=== PATIENT | female | born 1990 | race Caucasian/White ===

== ENCOUNTER 2018-01-19 05:22 | Emergency (ER) | payer OTHER, SELFPAY ==
--- OUTSIDE RECORDS SUMMARY | 2018-01-19 05:25 | XMS REPORT ---
:1990 [facility] Address [address] [place] [address] Dr. Bhakta [address] [place] [id number] Care Team Providers Name Role Phone LAYA HERBERT Unavailable Unavailable SIDNEY ACEVEDO Unavailable Unavailable Problems This patient has no known problems. Allergies, Adverse Reactions, Alerts This patient has no known allergies or adverse reactions. Medications This patient has no known medications. Results Test Description Test Time Test Comments Text Results Atomic Results Result Comments Culture, Urine 2017-06-16 10:59:00 Test Item Value Reference Range Comments Culture, Urine (test code=URC) Urine specimen contains 3 or more different organisms, Culture, Urine (test code=URC1) clinically indicated. Culture, Urine (test code=URC1) NF Culture, Urine (test code=URC1) 75 MSF Chemistry - [id number] 11:43:00 Test Item Value Reference Range Comments Chemistry - Specials (test 130.11 mIU/mL See Ranges Males and Non code=HCGQ) females: Less than 10 mIU/mLPregnancy, weeks of gestation mIU/mL 0.2 - 1 week 5 - 50 1 - 2 weeks 50 - 500 2 - 3 weeks 100 - 5,000 3 - 4 weeks 500 - 10,000 4 - 5 weeks 1,000 - 50,000 5 - 6 weeks 10,000 - 100,000 6 - 8 weeks 15,000 - 200,000 2 - 3 months 10,000 - 100,000 [id number] 21:09:00 Test Item Value Reference Range Comments Urinalysis (test code=UACLR) Yellow Yellow Urinalysis (test code=UACLY) Turbid Clear Urinalysis (test code=SPGR) 1.029 1.005-1.030 Urinalysis (test code=IRAIDA) 5.5 5.0-9.0 Urinalysis (test code=UALEU) Negative Negative Urinalysis (test code=UANIT) Negative Negative Urinalysis (test code=PROUADIP) 30 mg/dL Neg-Trace Urinalysis (test code=GLUCU) Negative mg/dL Negative Urinalysis (test code=KETU) Negative mg/dL Negative Urinalysis (test code=UAUROB) 0.2 mg/dL 0.2-1.0 Urinalysis (test code=UABIL) Negative Negative Urinalysis (test code=UABLD) Large Negative Urinalysis (test code=UARBC) GREATER THAN 50-TNTC HPF 0-3 Urinalysis (test code=UAWBC) 11-20 HPF 0-3 Urinalysis (test code=UASQUAM) 11-20 HPF 0-3 Urinalysis (test code=UABAC) 4+ HPF None Seen Urine Source: Urine Clean CatchType [id number] 21:02:00 Test Item Value Reference Range Comments Blood Type Rh (test code=BT) BP [id number] 21:01:00 Test Item Value Reference Range Comments Chemistry (test 138 mmol/L 136-145 code=NA-T) Chemistry (test 3.8 mmol/L 3.5-5.1 code=K-T) Chemistry (test code=CL) 104 mmol/L 98-107 Chemistry (test 25 mmol/L 22-29 code=CO2) Chemistry (test 13 mmol/L 10-20 code=ANGP) Chemistry (test 11 mg/dL 7.0-18.7 code=BUN) Chemistry (test 0.78 mg/dL 0.6-1.1 code=CREATT) Chemistry (test 89 Reference Range for code=EGFRMDRD) Estimated GFR: Greater than 90 mL/min/1.73 m2NOTE:The MDRD equation has not been validated for use with theelderly (over 70 years of age), women, patientswith serious comorbid condition or persons with extremes ofbody size, muscle mass, or nutritional status. Chemistry (test 117 mg/dL 70-105 code=GLU-T) Chemistry (test code=CA) 9.7 mg/dL 7.8-10.44 Chemistry (test Less than 0.3 mg/dL 0.2-1.2 code=TBILI) Chemistry (test code=TP) 7.3 g/dL 6.0-8.3 Chemistry (test 4.0 g/dL 3.5-5.0 code=ALB) Chemistry (test 3.3 g/dL 2.4-3.5 code=GLOB) Chemistry (test code=AG) 1.2 g/dL 1.2-2.2 Chemistry (test 41 U/L 40-150 code=ALP) Chemistry (test 12 U/L 5-34 code=AST) Chemistry (test 18 U/L 8-55 code=ALT) Chemistry - [id number] 21:01:00 Test Item Value Reference Range Comments Chemistry - Specials (test POSITIVE NEGATIVE Method of sensitivity- code=BHCGST) Indeterminant: results should be repeated after 48-72 hrs Positive: results may be detected as early as 1 day after the first missed menses. [id number] 20:48:00 Test Item Value Reference Range Comments Hematology (test code=WBCT) 10.6 thou/uL 4.8-10.8 Hematology (test code=RBCT) 4.38 mill/uL 4.20-5.40 Hematology (test code=HGBT) 12.0 g/dL 12.0-16.0 Hematology (test code=HCTT) 37.3 % 36.0-47.0 Hematology (test code=MCV) 85.1 fl 81.0-99.0 Hematology (test code=MCH) 27.5 pg 27.0-31.0 Hematology (test code=MCHC) 32.3 g/dL 32.0-36.0 Hematology (test code=RDW) 12.9 % 11.5-14.5 Hematology (test code=PLTT) 398 thou/uL 130-400 Hematology (test code=MPV) 6.0 fL 7.4-10.4 Hematology (test code=%NEUT) 52.3 % 42.0-75.0 Hematology (test code=%LYMPH) 36.5 % 21.0-51.0 Hematology (test code=%MONO) 7.1 % 0.0-10.0 Hematology (test code=%EOS) 2.9 % 0.0-10.0 Hematology (test code=%BASO) 1.1 % 0.0-1.0 Hematology (test code=NEUT#) 5.6 thou/uL 1.40-6.50 Hematology (test code=LYMPH#) 3.9 thou/uL 1.20-3.40 Hematology (test code=MONO#) 0.8 thou/uL 0.11-0.59 Hematology (test code=EOS#) 0.3 thou/uL 0.0-0.7 Hematology (test code=BASO#) 0.1 thou/uL 0.0-0.2
[2018-01-19 06:45] LABS: Absolute Lymphocytes (CBC) 2.7 K/uL (0.7-4.9); Absolute Monocytes 0.7 K/uL (0.1-1.3); Absolute Neutrophil 4.3 K/uL (1.8-8.0); Basophils % 0.6 % (0-1.3); Eosinophils % 3.3 % (0-4.4); Hematocrit 37.1 % (36.0-45.0); Lymphocytes % 33.9 % (15.3-44.8); MCH 27.6 pg (27.0-35.0); MCV 82.9 fL (80-100); MPV 7.3 fL (7.6-11.3); Monocytes % 8.3 % (3.3-12.3); RBC Red Blood Cell Count 4.47 M/uL (3.86-4.86)
[2018-01-19 07:00] LABS: Protime INR 0.99
--- NOTE | 2018-01-19 07:37 | RAD REPORT ---
EXAM DESCRIPTION: CT - Head Brain Wo Cont - 01/19/2018 6:51 am CLINICAL HISTORY: Headache/ vision loss COMPARISON: None. TECHNIQUE: Computed axial tomography of the head was obtained. IV contrast was not requested. All CT scans are performed using dose optimization technique as appropriate and may include automated exposure control or mA/KV adjustment according to patient size. FINDINGS: An intracranial bleed is not seen . The ventricles are normal in caliber. No extra-axial fluid collection is noted. Cerebellar tonsillar ectopia may be present. Fluid within the sinuses/ mastoids is not seen. IMPRESSION: Cerebellar tonsillar ectopia may be present No acute intracranial abnormality is seen. If patient's symptoms persist MRI of the brain would be r ecommended.
[2018-01-19 07:50] LABS: ALT/SGPT 17 IU/L (10-60); AST/SGOT 15 IU/L (10-42); Alkaline Phosphatase 39 IU/L (42-121); Bicarbonate 26 mEq/L (21-31); Bilirubin Direct < 0.1 mg/dL (0-0.2); Bilirubin Total 0.3 mg/dL (0.3-1.2); Glucose Level 116 mg/dL (65-120); Potassium 3.5 mEq/L (3.6-5.0); Protein, Total 6.9 g/dL (6.0-8.3); Sodium Level 138 mEq/L (135-145)
[2018-01-19 07:58] LABS: BUN Blood Urea Nitrogen 12 mg/dL (6-20); Glomerular Filtration Rate > 90 mL/min (=/>90)
--- NOTE | 2018-01-19 08:27 | RAD REPORT ---
EXAM DESCRIPTION: Irene Single View01/19/2018 6:43 am CLINICAL HISTORY: Chest pain COMPARISON: 2008 FINDINGS: The lungs appear clear of acute infiltrate. The heart is normal size IMPRESSION: No acute abnormalities displayed
[2018-01-19 08:28] LABS: Barbiturates NEGATIVE; Benzodiazepines NEGATIVE; Cocaine NEGATIVE; Opiates NEGATIVE; Phencyclidine NEGATIVE; THC Cannibis NEGATIVE
[2018-01-19 08:32] LABS: Urine Blood 2+ (NEG); Urine Glucose NEGATIVE (NEG); Urine Protein NEGATIVE (NEG); Urine Specific Gravity >1.030 (1.005-1.030)
[2018-01-19 08:34] LABS: METHAMPHETAM POSITIVE
--- NOTE | 2018-01-19 10:08 | EKG ---
Test Date: 2018-01-19 Test Time: 05:32:08 [employer] Hitch Driver: BILL MEASUREMENT RESULTS: Intervals: Rate: 84 MI: 130 QRSD: 74 QT: 386 QTc: 456 [place]: P: 53 MI: 130 QRS: 39 T: 24 INTERPRETIVE STATEMENTS: Normal sinus rhythm Nonspecific T wave abnormality Abnormal ECG Compared to ECG 06/18/2016 12:34:58 T-wave abnormality now present Electronically Signed On 01-19-18 10:07:34 CDT by Guilherme Lantigua
--- NOTE | 2018-01-19 11:47 | ER ---
Nurse's Notes [facility] Name: Judy Ivory Age: 27 yrs Sex: Female : 1990 Arrival Date: 01/19/2018 Time: 05:24 Bed 5 Private MD: Diagnosis: Chest pain, unspecified;Headache Presentation: 01/19 05:15 Presenting complaint: Patient states: Reports yesterday evening she felt her left side ea started feeling heavy, before bed she reported having a painful headache and the left eye went blank. Pt reported her left eye "went black" and felt numbness and tingling and before arrival to the ER pt reported having chest pain. Patient reports last well known was 2100 last night. Transition of care: patient was not received from another setting of care. Onset of symptoms was January 19, 2018. Care prior to arrival: None. 05:15 Method Of Arrival: Ambulatory ea 05:15 Acuity: NICOLETTE 2 ea Triage Assessment: 05:20 General: Appears in no apparent distress. Behavior is calm, cooperative, appropriate ea for age. Pain: Complains of pain in chest. Neuro: Level of Consciousness is awake, alert, obeys commands, Oriented to person, place, time, situation. Cardiovascular: Patient's skin is warm and dry. Respiratory: Airway is patent Respiratory effort is even, unlabored, Respiratory pattern is regular, symmetrical. Derm: Skin is pink, warm \\T\\ dry. 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 - Social history:: Smoking status: Patient uses tobacco products, smokes one-half pack cigarettes per day. Screenin:38 Patient has been NPO before screening. The patient is alert, able to follow commands. bb The patient does not exhibit slurred or garbled speech The patient is not exhibiting difficulty speaking. The patient does not exhibit difficulty understanding words. The patient is able to swallow own secretions with no drooling or need for suction. Patient tolerated one teaspoon of water. No drooling, immediate coughing, gurgling, or clearing of the throat was noted. The patient tolerated 90mL of water. No drooling, immediate coughing, gurgling, or clearing of the throat was noted. The patient passed the bedside swallow screening. Oral medications may be given as ordered. Contact Physician for further diet orders. 05:47 Abuse screen: Denies threats or abuse. Nutritional screening: No deficits noted. ea Tuberculosis screening: No symptoms or risk factors identified. Fall Risk None identified. Assessment: 05:51 Reassessment: Patient and/or family updated on plan of care and expected duration. Pain ea level reassessed. Patient is alert, oriented x 3, equal unlabored respirations, skin warm/dry/pink. General:. Pain: Complains of pain in mid-sternal area Pain radiates to anterior aspect of right upper chest and anterior aspect of left upper chest Pain currently is 3 out of 10 on a pain scale. at worst was 10 out of 10 on a pain scale. Quality of pain is described as aching, Pain began 30 min ago. Is intermittent. Cardiovascular: Heart tones present. Respiratory: Breath sounds are clear bilaterally. : No signs and/or symptoms were reported regarding the genitourinary system. 06:00 Reassessment: Patient and/or family updated on plan of care and expected duration. Pain ea level reassessed. Patient is alert, oriented x 3, equal unlabored respirations, skin warm/dry/pink. 07:05 Reassessment: Patient resting with eyes closed, awakens to verbal stimuli, denies pain ae1 at this time. Encouraged patient to use call walsh when ready to provide urine sample. 09:24 Reassessment: patient resting in bed, eyes closed respirations even and unlabored. Call ap3 walsh within reach, bed in lowest position, side rail up X's one. 10:50 Reassessment: Patient is alert, oriented x 3, equal unlabored respirations, skin ap3 warm/dry/pink. Vital Signs: 05:20 BP 124 / 88; Pulse 78; Resp 18; Temp 97.7(O); Pulse Ox 99% on R/A; Weight 74.84 kg (R); ea Height 5 ft. 1 in. (154.94 cm); 07:07 BP 105 / 76; Pulse 69; Resp 21; Pulse Ox 98% on R/A; ae1 07:38 BP 104 / 68; Pulse 68; Pulse Ox 97% on R/A; ap3 07:51 BP 116 / 83; Pulse 57; Resp 14 S; Pulse Ox 100% on R/A; jl7 09:25 BP 114 / 85; Pulse 67; Resp 19; Pulse Ox 98% on R/A; ap3 12:09 BP 108 / 80; Pulse 81; Resp 19; Pulse Ox 100% on R/A; ap3 05:20 Body Mass Index 31.18 (74.84 kg, 154.94 cm) ea NIH Stroke Scale Scores: 05:38 NIHSS Score: 0 bb 07:00 NIHSS Score: 0 pm1 ED Course: 05:15 Arm band placed on right wrist. Patient placed in an exam room, on a stretcher, on ea cardiac exercise physiologist, on pulse oximetry. 05:24 Patient arrived in ED. ds1 05:37 Antonia Valladares, RN is Primary Nurse. ea 05:42 Triage completed. ea 05:47 Patient has correct armband on for positive identification. Placed in gown. Bed in low ea position. Call light in reach. Side rails up X2. secured entrance monitor on. Pulse ox on. NIBP on. 05:47 Patient maintains SpO2 saturation greater than 95% on room air. ea 06:03 Anthony Razo, MARY KATE is PHCP. pm1 06:03 Galo Jolley MD is Attending Physician. pm1 06:25 Inserted saline lock: 20 gauge in right antecubital area, using aseptic technique. ea Blood collected. 06:38 Patient moved to radiology via wheelchair. kw 06:38 X-ray completed. Patient tolerated procedure well. kw 06:[address] via wheelchair. kw 06:42 XRAY Chest (1 view) In Process Unspecified. EDMS 06:52 CT Head Brain wo Cont In Process Unspecified. EDMS 07:06 Warm blanket given. ae1 07:36 patient ambulated, without assistance, to the restroom to provide urine sample. ap3 07:51 Urine collected: clean catch specimen, clear. mh5 07:51 UDS Sent. mh5 12:10 No provider procedures requiring assistance completed. IV discontinued, intact, ap3 bleeding controlled, No redness/swelling at site. Pressure dressing applied. Administered Medications: No medications were administered Outcome: 11:46 Discharge ordered by . pm1 12:10 Discharged to home ambulatory. ap3 12:10 Condition: stable 12:10 Discharge instructions given to patient, Instructed on discharge instructions, Demonstrated understanding of instructions. 12:14 Attestation : I agree with the charting done by Patti Dave nursing program manager. . ae1 12:15 Patient left the ED. ae1 NIH Stroke Scale - NIH Stroke Score Date: 01/19/2018 Time: 05:38 Total Score = 0 1a. Level of Consciousness (LOC) - 0(Alert) 1b. Level of Consciousness (LOC) (Year \\T\\ Age) - 0(Both) 1c. LOC Commands (Open \\T\\ Closes Eyes/Apron Man) - 0(Both) 2. Best Gaze (Lateral Gaze Paresis) - 0(Normal) 3. Visual Field Loss - 0(No visual loss) 4. Facial Palsy - 0(Normal) 5a. Left Arm: Motor (10-second hold) - 0(No drift) 5b. Right Arm: Motor (10-second hold) - 0(No drift) 6a. Left Leg: Motor (5-second hold - always test supine) - 0(No drift) 6b. Right Leg: Motor (5-second hold - always test supine) - 0(No drift) 7. Limb Ataxia (finger/nose \\T\\ heel/cochran - test with eyes open) - 0(Absent) 8. Sensory Loss (pinprick arms/legs/face) - 0(Normal) 9. Best Language: Aphasia (description/naming/reading) - 0(No aphasia) 10. Dysarthria (speech clarity - read or repeat words) - 0(Normal) 11. Extinction and Inattention (visual/tactile/auditory/spatial/personal) - 0(No abnormality) Initials: bb NIH Stroke Scale - NIH Stroke Score Date: 01/19/2018 Time: 07:00 Total Score = 0 1a. Level of Consciousness (LOC) - 0(Alert) 1b. Level of Consciousness (LOC) (Year \\T\\ Age) - 0(Both) 1c. LOC Commands (Open \\T\\ Closes Eyes/Apron Man) - 0(Both) 2. Best Gaze (Lateral Gaze Paresis) - 0(Normal) 3. Visual Field Loss - 0(No visual loss) 4. Facial Palsy - 0(Normal) 5a. Left Arm: Motor (10-second hold) - 0(No drift) 5b. Right Arm: Motor (10-second hold) - 0(No drift) 6a. Left Leg: Motor (5-second hold - always test supine) - 0(No drift) 6b. Right Leg: Motor (5-second hold - always test supine) - 0(No drift) 7. Limb Ataxia (finger/nose \\T\\ heel/cochran - test with eyes open) - 0(Absent) 8. Sensory Loss (pinprick arms/legs/face) - 0(Normal) 9. Best Language: Aphasia (description/naming/reading) - 0(No aphasia) 10. Dysarthria (speech clarity - read or repeat words) - 0(Normal) 11. Extinction and Inattention (visual/tactile/auditory/spatial/personal) - 0(No abnormality) Initials: pm1 Signatures: Dispatcher [employer] [facility] Gina Jane ds1 Shanika Fry RN RN Jannet Small Patrick, MARY KATE SHAPER AND PRESSER pm1 Denis Delaney RN RN ae1 Raquel Sarmiento 5 Diya Fajardo RN RN jl7 Antonia Valladares RN RN ea Prokisch, Amanda ap3
--- NOTE | 2018-01-19 11:48 | EDPHYS ---
Physician Documentation [facility] Name: Judy Ivory Age: 27 yrs Sex: Female : 1990 Arrival Date: 01/19/2018 Time: 05:24 Bed 5 Private MD: ED Physician Galo Jolley HPI: 01/19 07:00 This 27 yrs old Female presents to ER via Ambulatory with complaints of Chest pm1 Pain, Numbness Of Arm - L. 07:00 The patient or guardian reports chest pain that is located primarily in the substernal pm1 area. The pain radiates to the left arm. Associated signs and symptoms: Pertinent positives: headache, Pertinent negatives: abdominal pain, dizziness, palpitations, shortness of breath. The chest pain is described as sharp. Duration: The patient or guardian reports a single episode, that is now resolved. Modifying factors: The symptoms are alleviated by nothing. the symptoms are aggravated by nothing. Severity of pain: in the emergency department the pain has improved. The patient has not experienced similar symptoms in the past. The patient has not recently seen a physician. Patient reports onset of headache last night that caused left eye visual changes. Patient reports resolution of headache and visual changes yesterday. Lasted a few minutes. Prior to coming to the ER, patient with onset of chest pain with radiation to her left arm. BACK HAND: 05:20 LMP 01/17/2018 ea Historical: - Allergies: 05:44 Hydrocodone-Acetaminophen; ea - Home Meds: 05:44 Adderall XR Oral [Active]; ea - PMHx: 05:44 ectopic ; ea - Immunization history:: Adult Immunizations up to date. - Social history:: Smoking status: Patient uses tobacco products, smokes one-half pack cigarettes per day. ROS: 07:00 Constitutional: Negative for fever, chills, and weight loss, Eyes: Negative for injury, pm1 pain, redness, and discharge, ENT: Negative for injury, pain, and discharge, Neck: Negative for injury, pain, and swelling. 07:00 Respiratory: Negative for shortness of breath, cough, wheezing, and pleuritic chest pain, Abdomen/GI: Negative for abdominal pain, nausea, vomiting, diarrhea, and constipation, Back: Negative for injury and pain, : Negative for injury, bleeding, discharge, and swelling, MS/Extremity: Negative for injury and deformity, Skin: Negative for injury, rash, and discoloration. 07:00 Cardiovascular: Positive for chest pain, Negative for edema, orthopnea, palpitations. 07:00 Neuro: Positive for headache, numbness, of the left arm. Exam: 07:00 Constitutional: This is a well developed, well nourished patient who is awake, alert, pm1 and in no acute distress. Head/Face: Normocephalic, atraumatic. Eyes: Pupils equal round and reactive to light, extra-ocular motions intact. Lids and lashes normal. Conjunctiva and sclera are non-icteric and not injected. Cornea within normal limits. Periorbital areas with no swelling, redness, or edema. ENT: Nares patent. No nasal discharge, no septal abnormalities noted. Tympanic membranes are normal and external auditory canals are clear. Oropharynx with no redness, swelling, or masses, exudates, or evidence of obstruction, uvula midline. Mucous membranes moist. Neck: Trachea midline, no thyromegaly or masses palpated, and no cervical lymphadenopathy. Supple, full range of motion without nuchal rigidity, or vertebral point tenderness. No Meningismus. Chest/axilla: Normal chest wall appearance and motion. Nontender with no deformity. No lesions are appreciated. Cardiovascular: Regular rate and rhythm with a normal S1 and S2. No gallops, murmurs, or rubs. Normal PMI, no JVD. No pulse deficits. Respiratory: Lungs have equal breath sounds bilaterally, clear to auscultation and percussion. No rales, rhonchi or wheezes noted. No increased work of breathing, no retractions or nasal flaring. Abdomen/GI: Soft, non-tender, with normal bowel sounds. No distension or tympany. No guarding or rebound. No evidence of tenderness throughout. Back: No spinal tenderness. No costovertebral tenderness. Full range of motion. Skin: Warm, dry with normal turgor. Normal color with no rashes, no lesions, and no evidence of cellulitis. MS/ Extremity: Pulses equal, no cyanosis. Neurovascular intact. Full, normal range of motion. 07:00 Neuro: Orientation: is normal, Mentation: is normal, Cerebellar function: normal finger to nose testing, Motor: moves all fours, strength is normal, strength is 5/5 in all extremities, Sensation: is normal, no obvious gross deficits, Gait: is steady, at a normal pace, without difficulty. Vital Signs: 05:20 BP 124 / 88; Pulse 78; Resp 18; Temp 97.7(O); Pulse Ox 99% on R/A; Weight 74.84 kg (R); ea Height 5 ft. 1 in. (154.94 cm); 07:07 BP 105 / 76; Pulse 69; Resp 21; Pulse Ox 98% on R/A; ae1 07:38 BP 104 / 68; Pulse 68; Pulse Ox 97% on R/A; ap3 07:51 BP 116 / 83; Pulse 57; Resp 14 S; Pulse Ox 100% on R/A; jl7 09:25 BP 114 / 85; Pulse 67; Resp 19; Pulse Ox 98% on R/A; ap3 12:09 BP 108 / 80; Pulse 81; Resp 19; Pulse Ox 100% on R/A; ap3 05:20 Body Mass Index 31.18 (74.84 kg, 154.94 cm) ea NIH Stroke Scale Scores: 05:38 NIHSS Score: 0 bb 07:00 NIHSS Score: 0 pm1 MDM: 06:05 Patient medically screened. pm1 11:46 Data reviewed: vital signs. Data interpreted: Pulse oximetry: on room air is 98 %. pm1 Interpretation: normal. Counseling: I had a detailed discussion with the patient and/or guardian regarding: the historical points, exam findings, and any diagnostic results supporting the discharge/admit diagnosis, lab results, radiology results, the need for outpatient follow up, a family practitioner, a neurologist, to return to the emergency department if symptoms worsen or persist or if there are any questions or concerns that arise at home. 01/19 06:16 Order name: Basic Metabolic Panel; Complete Time: 08: pm01/19 06:16 Order name: BNP; Complete Time: 07: pm01/19 06:16 Order name: CBC with Diff; Complete Time: 07:29 pm01/19 06:16 Order name: LFT's; Complete Time: 08:09 pm01/19 06:16 Order name: Magnesium; Complete Time: 08:09 pm01/19 06:16 Order name: PT-INR; Complete Time: 07:29 pm01/19 06:16 Order name: Ptt, Activated; Complete Time: 07:29 pm1 01/19 06:16 Order name: Troponin (emerg Dept Use Only); Complete Time: 07:29 pm1 01/19 06:16 Order name: XRAY Chest (1 view); Complete Time: 08:28 pm1 01/19 06:17 Order name: CT Head Brain wo Cont; Complete Time: 07:44 pm1 01/19 06:17 Order name: UDS; Complete Time: 08:37 pm1 01/19 07:56 Order name: Urine Dipstick--Ancillary (enter results); Complete Time: 08:37 ag 01/19 07:56 Order name: Urine --Ancillary (enter results); Complete Time: 08:37 ag 01/19 10:29 Order name: Troponin (emerg Dept Use Only); Complete Time: 11:45 pm1 01/19 06:16 Order name: Urine Test (obtain specimen); Complete Time: 07:50 pm1 01/19 06:16 Order name: EKG; Complete Time: 06:17 pm1 01/19 06:16 Order name: Cardiac monitoring; Complete Time: 06:22 pm1 01/19 06:16 Order name: EKG - Nurse/Tech; Complete Time: 06:22 pm1 01/19 06:16 Order name: IV Saline Lock; Complete Time: 06:32 pm1 01/19 06:16 Order name: Labs collected and sent; Complete Time: 06:37 pm1 01/19 06:16 Order name: O2 Per Protocol; Complete Time: 06:23 pm1 01/19 06:16 Order name: O2 Sat Monitoring; Complete Time: 06:23 pm1 01/19 06:16 Order name: Urine Dipstick-Ancillary (obtain specimen); Complete Time: 07:50 pm1 Administered Medications: No medications were administered Disposition: 01/19/18 11:46 Discharged to Home. Impression: Chest pain, unspecified, Headache. - Condition is Stable. - Discharge Instructions: Nonspecific Chest Pain, General Headache Without Cause. - Medication Reconciliation Form, Thank You Letter, Antibiotic Education form. - Follow up: Emergency Department; When: As needed; Reason: Worsening of condition. Follow up: Private Physician; When: 2 - 3 days; Reason: Recheck today's complaints, Continuance of care, Re-evaluation by your physician. - Problem is new. - Symptoms have improved. NIH Stroke Scale - NIH Stroke Score Date: 01/19/2018 Time: 05:38 Total Score = 0 1a. Level of Consciousness (LOC) - 0(Alert) 1b. Level of Consciousness (LOC) (Year \T\ Age) - 0(Both) 1c. LOC Commands (Open \T\ Closes Eyes/Sheet Manufacturing Supervisor) - 0(Both) 2. Best Gaze (Lateral Gaze Paresis) - 0(Normal) 3. Visual Field Loss - 0(No visual loss) 4. Facial Palsy - 0(Normal) 5a. Left Arm: Motor (10-second hold) - 0(No drift) 5b. Right Arm: Motor (10-second hold) - 0(No drift) 6a. Left Leg: Motor (5-second hold - always test supine) - 0(No drift) 6b. Right Leg: Motor (5-second hold - always test supine) - 0(No drift) 7. Limb Ataxia (finger/nose \T\ heel/cochran - test with eyes open) - 0(Absent) 8. Sensory Loss (pinprick arms/legs/face) - 0(Normal) 9. Best Language: Aphasia (description/naming/reading) - 0(No aphasia) 10. Dysarthria (speech clarity - read or repeat words) - 0(Normal) 11. Extinction and Inattention (visual/tactile/auditory/spatial/personal) - 0(No abnormality) Initials: NIH Stroke Scale - NIH Stroke Score Date: 01/19/2018 Time: 07:00 Total Score = 0 1a. Level of Consciousness (LOC) - 0(Alert) 1b. Level of Consciousness (LOC) (Year \T\ Age) - 0(Both) 1c. LOC Commands (Open \T\ Closes Eyes/Sheet Manufacturing Supervisor) - 0(Both) 2. Best Gaze (Lateral Gaze Paresis) - 0(Normal) 3. Visual Field Loss - 0(No visual loss) 4. Facial Palsy - 0(Normal) 5a. Left Arm: Motor (10-second hold) - 0(No drift) 5b. Right Arm: Motor (10-second hold) - 0(No drift) 6a. Left Leg: Motor (5-second hold - always test supine) - 0(No drift) 6b. Right Leg: Motor (5-second hold - always test supine) - 0(No drift) 7. Limb Ataxia (finger/nose \T\ heel/cochran - test with eyes open) - 0(Absent) 8. Sensory Loss (pinprick arms/legs/face) - 0(Normal) 9. Best Language: Aphasia (description/naming/reading) - 0(No aphasia) 10. Dysarthria (speech clarity - read or repeat words) - 0(Normal) 11. Extinction and Inattention (visual/tactile/auditory/spatial/personal) - 0(No abnormality) Initials: pm1 Addendum: 01/21/2018 07:00 Co-signature as Attending Physician, Galo Jolley MD. rn Signatures: Dispatcher [employer] EDGalo Rojas MD MD rn Marinas, Patrick, MARY KATE SUPERVISOR SANDBLASTER pm1 Denis Delaney RN RN ae1 Antonia Valladares RN RN ea
[2018-01-19 12:32] VITALS: BP 108/80; O2SAT 100
== END 2018-01-19 12:15 | disposition home or self-care (01) ==
LOC: ER 05:22
DX: R51 Headache (principal); F17.210 Nicotine dependence, cigarettes, uncomplicated; Z88.5 Allergy status to narcotic agent
CPT/HCPCS: 36415; 70450; 71045; 80048; 80076; 80307; 81003; 81025; 83735; 83880; 84484; 85025; 85610; 85730; 93005; 99285

== ENCOUNTER 2018-05-27 10:49 | Emergency (ER) | payer OTHER ==
--- OUTSIDE RECORDS SUMMARY | 2018-05-27 10:52 | XMS REPORT | Continuity of Care Document ---
:1990 Author Organization Interface Problems Problem Status Onset Date Classification Date Comments Source Reported Medications Medication Details Route Status Patient Ordering Order Source Instructions Provider Date Allergies, Adverse Reactions, Alerts Substance Category Reaction Severity Reaction Status Date Comments Source type Reported Immunizations Immunization Date Given Site Status Last Updated Comments Source Results Order Results Value Reference Date Interpretation Comments Source Name Range Vital Signs Vital Sign Value Date Comments Source Encounters Location Location Encounter Encounter Reason Attending ADM DC Status Source Details Type Number For Provider Date Date Visit Outpatient [id number] [facility] 02/22 [facility] Outpatient [id number] [facility] 02/27 [facility] Outpatient [id number] [facility] 03/22 [facility] Outpatient [id number] [facility] 04/21 [facility] Outpatient [id number] [facility] 06/02 [facility] Procedures Procedure Code Date Perfomer Comments Source
--- OUTSIDE RECORDS SUMMARY | 2018-05-27 10:52 | XMS REPORT ---
:1990 [facility] [address] [place] [address] Dr. Bhakta [address] [place] [id number] Care Team Providers Name Role Phone LAYA [...] Urine (test code=URC1) 75 MSF Chemistry - [id number] 11:43:00 Test Item Value Reference Range Comments [...] 2 - 3 months 10,000 - 100,000 [id number] 21:09:00 Test Item Value Reference Range Comments [...] None Seen Urine Source: Urine Clean CatchType [id number] 21:02:00 Test Item Value Reference Range Comments Blood Type Rh (test code=BT) BP [id number] 21:01:00 Test Item Value Reference Range Comments [...] (test 18 U/L 8-55 code=ALT) Chemistry - [id number] 21:01:00 Test Item Value Reference Range Comments Chemistry - Specials (test POSITIVE NEGATIVE Method of sensitivity- code=BHCGST) Indeterminant: results should be repeated after 48-72 hrs Positive: results may be detected as early as 1 day after the first missed menses. [id number] 20:48:00 Test Item Value Reference Range Comments [...]
--- NOTE | 2018-05-27 11:31 | EDPHYS ---
Physician Documentation [facility] Name: Judy Ivory Age: 27 yrs Sex: Female : 1990 Arrival Date: 05/27/2018 Time: 10:51 Bed 6 Private MD: None, None ED Physician Galo Jolley HPI: 05/27 11:21 This 27 yrs old Female presents to ER via Ambulatory with complaints of Pain jmm With Urination. 11:21 The patient presents with urinary symptoms, dysuria, frequency. Onset: The jmm symptoms/episode began/occurred gradually, 3 day(s) ago. Modifying factors: The symptoms are alleviated by nothing, the symptoms are aggravated by nothing. Associated signs and symptoms: Pertinent negatives: fever, hematuria, vomiting. This is a 27 year old female with a history kidney stones that presents to the ED with dysuria beginning approx 3 days ago. patient denies vomiting, fever, or flank pain. 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 - Social history:: Smoking status: Patient uses tobacco products, smokes one-half pack cigarettes per day. - Ebola Screening: : Patient denies travel to an Ebola-affected area in the 21 days before illness onset. ROS: 11:21 Constitutional: Negative for fever, chills, and weight loss, Cardiovascular: Negative jmm for chest pain, palpitations, and edema, Respiratory: Negative for shortness of breath, cough, wheezing, and pleuritic chest pain. 11:21 Abdomen/GI: Negative for abdominal pain, nausea and vomiting. 11:21 Back: Negative for pain at rest, radiated pain. 11:21 : Positive for urinary symptoms. 11:21 All other systems are negative. Exam: 11:21 Head/Face: atraumatic. jmm 11:21 Constitutional: The patient appears in no acute distress, alert, awake. Vital Signs: 11:11 BP 111 / 75; Pulse 84; Resp 18; Temp 98.4; Pulse Ox 99% on R/A; Weight 74.84 kg (R); aj1 Height 5 ft. 1 in. (154.94 cm) (R); Pain 0/10; 11:11 Body Mass Index 31.18 (74.84 kg, 154.94 cm) aj1 MDM: 11:20 Patient medically screened. [facility] 11:30 Data reviewed: vital signs, nurses notes, lab test result(s). Counseling: I had a [facility] detailed discussion with the patient and/or guardian regarding: the historical points, exam findings, and any diagnostic results supporting the discharge/admit diagnosis, the need for outpatient follow up, to return to the emergency department if symptoms worsen or persist or if there are any questions or concerns that arise at home. 13:42 ED course: Patient's abdomen is benign. I do not currently suspect pyelonephritis. [facility] Patient has no CVA tenderness, no vomiting, afebrile and non toxic in appearance. Symptoms appear consistent with simple UTI. . 05/27 11:33 Order name: Urine Dipstick--Ancillary (enter results); Complete Time: 13:41 05/27 11:33 Order name: Urine --Ancillary (enter results); Complete Time: 13:41 05/27 11:21 Order name: Urine Dipstick-Ancillary (obtain specimen); Complete Time: 11:30 [facility] 05/27 11:21 Order name: Urine Test (obtain specimen); Complete Time: 11:30 [facility] Administered Medications: No medications were administered Disposition: 14:06 Co-signature as Attending Physician, Galo Jolley MD. rn Disposition: 05/27/18 11:30 Discharged to Home. Impression: Dysuria. - Condition is Stable. - Discharge Instructions: Dysuria. - Prescriptions for Bactrim DS 800- 160 mg Oral Tablet - take 1 tablet by ORAL route every 12 hours for 10 days; 20 tablet. - Work release form, Medication Reconciliation Form, Thank You Letter, Antibiotic Education, Prescription Opioid Use form. - Follow up: Private Physician; When: 2 - 3 days; Reason: Recheck today's complaints, Re-evaluation by your physician. Signatures: Dispatcher [employer] EDMS Sara Madrid RN RN aj1 Joe Durán RN RN sg Mickail, Joel, PA PA [facility] Galo Jolley MD MD rn radiology: (The following items were deleted from the chart) 11:41 11:30 05/27/2018 11:30 Discharged to Home. Impression: Dysuria. Condition is Stable. sg Forms are Medication Reconciliation Form, Thank You Letter, Antibiotic Education, Prescription Opioid Use. Follow up: Private Physician; When: 2 - 3 days; Reason: Recheck today's complaints, Re-evaluation by your physician. marlene
--- NOTE | 2018-05-27 11:31 | ER ---
Nurse's Notes [facility] Name: Judy Ivory Age: 27 yrs Sex: Female : 1990 Arrival Date: 05/27/2018 Time: 10:51 Bed 6 Private MD: None, None Diagnosis: Dysuria Presentation: 05/27 11:09 Presenting complaint: Patient states: Reports dysuria that started yesterday morning. aj1 States that she has a history of kidney stones, so she wanted to have it checked out. Reports urinary frequency, denies flank pain. Transition of care: patient was not received from another setting of care. Onset of symptoms was May 26, 2018. Risk Assessment: Do you want to hurt yourself or someone else? Patient reports no desire to harm self or others. Initial Sepsis Screen: Does the patient meet any 2 criteria? No. Patient's initial sepsis screen is negative. Does the patient have a suspected source of infection? No. Patient's initial sepsis screen is negative. Care prior to arrival: None. 11:09 Method Of Arrival: Ambulatory aj 11:09 Acuity: NICOLETTE 4 aj1 Triage Assessment: 11:11 General: Appears in no apparent distress. comfortable, Behavior is calm, cooperative, aj1 appropriate for age. Pain: Denies pain. Neuro: Level of Consciousness is awake, alert, obeys commands. Cardiovascular: Patient's skin is warm and dry. Respiratory: Airway is patent Respiratory effort is even, unlabored, Respiratory pattern is regular, symmetrical. : Reports burning with urination, urinary frequency. 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 - Social history:: Smoking status: Patient uses tobacco products, smokes one-half pack cigarettes per day. - Ebola Screening: : Patient denies travel to an Ebola-affected area in the 21 days before illness onset. Vital Signs: 11:11 BP 111 / 75; Pulse 84; Resp 18; Temp 98.4; Pulse Ox 99% on R/A; Weight 74.84 kg (R); aj1 Height 5 ft. 1 in. (154.94 cm) (R); Pain 0/10; 11:11 Body Mass Index 31.18 (74.84 kg, 154.94 cm) aj1 ED Course: 10:51 Patient arrived in ED. sb2 10:51 None, None is Private Physician. sb2 11:10 Triage completed. aj1 11:11 Arm band placed on Patient placed in an exam room. [facility] 11:17 Primo Sellers PA is PHCP. [facility] 11:17 Galo Jolley MD is Attending Physician. [facility] 11:18 Joe Durán, RN is Primary Nurse. sg Administered Medications: No medications were administered Outcome: 11:30 Discharge ordered by MD. [facility] 11:41 Patient left the ED. sg Signatures: Sara Madrid RN RN aj1 Joe Durán, RN RN Primo Goodman PA PA Marianne Kelly sb2
[2018-05-27 11:40] LABS: Urine Blood NEGATIVE (NEG); Urine Glucose NEGATIVE (NEG); Urine Protein NEGATIVE (NEG); Urine pH 7.5 (5.0-7.0)
[2018-05-27 11:46] VITALS: BP 111/75; TEMP 98.4; O2SAT 99
== END 2018-05-27 11:41 | disposition home or self-care (01) ==
LOC: ER 10:49
DX: R30.0 Dysuria (principal); Z88.6 Allergy status to analgesic agent; Z88.5 Allergy status to narcotic agent; F17.210 Nicotine dependence, cigarettes, uncomplicated
CPT/HCPCS: 81003; 81025; 99281

== ENCOUNTER 2018-06-26 07:14 | Emergency (ER) | payer OTHER ==
--- OUTSIDE RECORDS SUMMARY | 2018-06-26 07:16 | XMS REPORT | Continuity of Care Document ---
[...] Number For Provider Date Date Visit Outpatient [id number] [facility] 02/22 [facility] Outpatient [id number] [facility] 02/27 [facility] Outpatient [id number] [facility] 03/22 [facility] Outpatient [id number] [facility] 04/21 [facility] Outpatient [id number] [facility] 06/02 [facility] Procedures Procedure Code Date Perfomer Comments Source
--- OUTSIDE RECORDS SUMMARY | 2018-06-26 07:16 | XMS REPORT ---
:1990 [facility] Address [address] [place] [address] Dr. Bhakta [address] [place] [id number] Care Team Providers Name Role Phone LAYA [...] Urine (test code=URC1) 75 MSF Chemistry - [id number] 11:43:00 Test Item Value Reference Range Comments [...] 2 - 3 months 10,000 - 100,000 [id number] 21:09:00 Test Item Value Reference Range Comments [...] None Seen Urine Source: Urine Clean CatchType [id number] 21:02:00 Test Item Value Reference Range Comments Blood Type Rh (test code=BT) BP [id number] 21:01:00 Test Item Value Reference Range Comments [...] (test 18 U/L 8-55 code=ALT) Chemistry - [id number] 21:01:00 Test Item Value Reference Range Comments Chemistry - Specials (test POSITIVE NEGATIVE Method of sensitivity- code=BHCGST) Indeterminant: results should be repeated after 48-72 hrs Positive: results may be detected as early as 1 day after the first missed menses. [id number] 20:48:00 Test Item Value Reference Range Comments [...]
--- NOTE | 2018-06-26 07:44 | RAD REPORT ---
EXAM DESCRIPTION: CT - Head Brain Wo Cont - 06/26/2018 7:38 am CLINICAL HISTORY: Headache all COMPARISON: PE CT head January 2018 TECHNIQUE: Axial 5 mm thick images of the head were obtained without IV contrast. All CT scans are performed using dose optimization technique as appropriate and may include automated exposure control or mA/KV adjustment according to patient size. FINDINGS: No intracranial hemorrhage, mass, edema or shift of mid-line structures. No acute infarcti on changes seen. No abnormal extra-axial fluid collections. Ventricles are normal. Mastoid air cells and visualized portions of the paranasal sinuses are clear. No acute bony findings. No significant change from comparison. IMPRESSION: Negative non-contrast CT head examination.
[2018-06-26] MEDS ORDERED: KETOROLAC 30 MG/ML INJ ONE (07:50)
[2018-06-26] MEDS ORDERED: DIPHENHYDRAMINE 25 MG TAB/CAP ONE (07:55)
[2018-06-26] MEDS ORDERED: METOCLOPRAMIDE 5 MG TAB ONE (07:56)
--- NOTE | 2018-06-26 08:14 | EDPHYS ---
Physician Documentation [facility] Name: Judy Ivory Age: 27 yrs Sex: Female : 1990 Arrival Date: 06/26/2018 Time: 07:15 Bed 20 Private MD: ED Physician Galo Jolley HPI: 06/26 08:00 This 27 yrs old Female presents to ER via EMS with complaints of Headache. pm1 08:00 The patient complains of pain to the right temporal area. The patient describes the pm1 headache as aching. Onset: The symptoms/episode began/occurred at 03:00. Associated signs and symptoms: Pertinent negatives: fever, nausea, rash, vomiting. Severity of symptoms: in the emergency department the pain is actually worse. Headache History: The patient has had previous headaches and this one is similar to previous episodes. The symptoms are alleviated by nothing. the symptoms are aggravated by lights. The patient has experienced similar episodes in the past, multiple times. Patient with onset of right sided headaches this year since December. Patient's headache similar to prior right sided headaches, but no improvement with OTC medications at home today. Patient being treated for her migraine headaches by Dr. Young. RECHARGER: 07:20 LMP 05/2018 jl7 Historical: - Allergies: 07:22 Hydrocodone-Acetaminophen; jl7 - Home Meds: 07:22 None [Active]; jl7 - PMHx: 07:22 Depression; ectopic ; jl7 - PSHx: 07:22 None; jl7 - Immunization history:: Adult Immunizations unknown. - Social history:: Smoking status: Patient uses tobacco products, smokes one-half pack cigarettes per day. - Ebola Screening: : No symptoms or risks identified at this time. ROS: 08:00 Constitutional: Negative for fever, chills, and weight loss, Eyes: Negative for injury, pm1 pain, redness, and discharge, ENT: Negative for injury, pain, and discharge, Neck: Negative for injury, pain, and swelling, Cardiovascular: Negative for chest pain, palpitations, and edema, Respiratory: Negative for shortness of breath, cough, wheezing, and pleuritic chest pain, Abdomen/GI: Negative for abdominal pain, nausea, vomiting, diarrhea, and constipation, Back: Negative for injury and pain, MS/Extremity: Negative for injury and deformity, Skin: Negative for injury, rash, and discoloration. 08:00 Neuro: Positive for headache, Negative for hearing loss, numbness, seizure activity, tingling, weakness. Exam: 08:00 Constitutional: This is a well developed, well nourished patient who is awake, alert, pm1 and in no acute distress. Head/Face: Normocephalic, atraumatic. Eyes: Pupils equal round and reactive to light, extra-ocular motions intact. Lids and lashes normal. Conjunctiva and sclera are non-icteric and not injected. Cornea within normal limits. Periorbital areas with no swelling, redness, or edema. ENT: Nares patent. No nasal discharge, no septal abnormalities noted. Tympanic membranes are normal and external auditory canals are clear. Oropharynx with no redness, swelling, or masses, exudates, or evidence of obstruction, uvula midline. Mucous membranes moist. Neck: Trachea midline, no thyromegaly or masses palpated, and no cervical lymphadenopathy. Supple, full range of motion without nuchal rigidity, or vertebral point tenderness. No Meningismus. Chest/axilla: Normal chest wall appearance and motion. Nontender with no deformity. No lesions are appreciated. Cardiovascular: Regular rate and rhythm with a normal S1 and S2. No gallops, murmurs, or rubs. Normal PMI, no JVD. No pulse deficits. Respiratory: Lungs have equal breath sounds bilaterally, clear to auscultation and percussion. No rales, rhonchi or wheezes noted. No increased work of breathing, no retractions or nasal flaring. Abdomen/GI: Soft, non-tender, with normal bowel sounds. No distension or tympany. No guarding or rebound. No evidence of tenderness throughout. Back: No spinal tenderness. No costovertebral tenderness. Full range of motion. Skin: Warm, dry with normal turgor. Normal color with no rashes, no lesions, and no evidence of cellulitis. MS/ Extremity: Pulses equal, no cyanosis. Neurovascular intact. Full, normal range of motion. 08:00 Neuro: Orientation: is normal, Mentation: is normal, Cranial nerves: CN II- XII are normal as tested, Cerebellar function: normal finger to nose testing, Motor: moves all fours, Sensation: is normal, no obvious gross deficits, Gait: is steady, at a normal pace, without difficulty. Vital Signs: 07:22 BP 132 / 91; Pulse 81; Resp 22 S; Temp 97.6(O); Pulse Ox 97% on R/A; Weight 72.57 kg 7 (R); Height 5 ft. 1 in. (154.94 cm) (R); Pain 10/10; 08:10 BP 114 / 76; Pulse 68; Resp 16; Pulse Ox 98% on R/A; Pain 7/10; jl7 07:22 Body Mass Index 30.23 (72.57 kg, 154.94 cm) 7 MDM: 07:21 Patient medically screened. pm1 08:12 Data reviewed: vital signs. Data interpreted: Pulse oximetry: on room air is 98 %. pm1 Interpretation: normal. Counseling: I had a detailed discussion with the patient and/or guardian regarding: the historical points, exam findings, and any diagnostic results supporting the discharge/admit diagnosis, radiology results, the need for outpatient follow up, to return to the emergency department if symptoms worsen or persist or if there are any questions or concerns that arise at home. 08:12 ED course: Negative CT head and neuro examination, headache improved with medications pm1 given in ER. Will discharge home with pain medications and follow up with her neurologist. 06/26 07:34 Order name: Urine Dipstick--Ancillary (enter results) 06/26 07:34 Order name: Urine --Ancillary (enter results) 06/26 07:22 Order name: CT Head Brain wo Cont; Complete Time: 07:48 pm1 06/26 07:22 Order name: Urine Dipstick-Ancillary (obtain specimen); Complete Time: 07:42 pm1 06/26 07:22 Order name: Urine Test (obtain specimen); Complete Time: 07:42 pm1 06/26 07:22 Order name: IV Saline Lock; Complete Time: 07:30 pm1 Administered Medications: 07:52 Drug: TORadol 30 mg Route: IVP; Site: right antecubital; 08:10 Follow up: Response: No adverse reaction; Pain is decreased jl7 07:55 Not Given (Hospital is out of IV Benadryl): Benadryl 25 mg IVP once 7 07:56 Drug: Reglan 10 mg Route: PO; jl7 08:10 Follow up: Response: No adverse reaction jl7 07:56 Drug: Benadryl 25 mg Route: PO; jl7 08:10 Follow up: Response: No adverse reaction jl7 08:16 Not Given (Other Intervention Used): Reglan 10 mg IVP once; over 1 to 2 minutes jl7 Disposition: 10:06 Co-signature as Attending Physician, Galo Jolley MD. rn Disposition: 06/26/18 08:13 Discharged to Home. Impression: Headache. - Condition is Stable. - Discharge Instructions: General Headache Without Cause, Migraine Headache. - Prescriptions for Fiorinal 50- 325-40 mg Oral Capsule - take 1 capsule by ORAL route every 4 hours As needed - not to exceed 6 capsules per day; 20 capsule. Zofran 4 mg Oral Tablet - take 1 tablet by ORAL route every 12 hours As needed; 20 tablet. - Medication Reconciliation Form, Thank You Letter, Prescription Opioid Use form. - Follow up: Jayce Young MD; When: 2 - 3 days; Reason: Recheck today's complaints, Continuance of care, Re-evaluation by your physician. - Problem is new. - Symptoms have improved. Signatures: Dispatcher [employer] EDMS Galo Jolley MD MD rn Marinas, Patrick, NP AUTOMOTIVE SERVICE ASSISTANT pm1 Diya Fajardo RN RN jl7 Corrections: (The following items were deleted from the chart) 08:22 08:13 06/26/2018 08:13 Discharged to Home. Impression: Headache. Condition is Stable. jl7 Forms are Medication Reconciliation Form, Thank You Letter, Antibiotic Education, Prescription Opioid Use. Follow up: Jayce Young; When: 2 - 3 days; Reason: Recheck today's complaints, Continuance of care, Re-evaluation by your physician. Problem is new. Symptoms have improved. pm1
--- NOTE | 2018-06-26 08:14 | ER ---
Nurse's Notes [facility] Name: Judy Ivory Age: 27 yrs Sex: Female : 1990 Arrival Date: 06/26/2018 Time: 07:15 Bed 20 Private MD: Diagnosis: Headache Presentation: 06/26 07:20 Presenting complaint: EMS states: C/o migraine since 299, took Tylenol and a warm 7 bath, no relief. Transition of care: patient was not received from another setting of care. Onset of symptoms was June 26, 2018 at 03:00. Risk Assessment: Do you want to hurt yourself or someone else? Patient reports no desire to harm self or others. Initial Sepsis Screen: Does the patient meet any 2 criteria? No. Patient's initial sepsis screen is negative. Does the patient have a suspected source of infection? No. Patient's initial sepsis screen is negative. Care prior to arrival: None. 07:20 Method Of Arrival: EMS: [facility] 07:20 Acuity: NICOLETTE 3 jl7 Triage Assessment: 07:20 Headache History: The patient has had previous headaches and this one is similar to 7 previous episodes. General: Appears uncomfortable, Behavior is cooperative, anxious, crying. Pain: Complains of pain in AZAR Pain currently is 10 out of 10 on a pain scale. Pain began 4 hours ago. Also complains of photophobia, sleeplessness. EENT: No signs and/or symptoms were reported regarding the EENT system. Neuro: Level of Consciousness is awake, alert, obeys commands, Oriented to person, place, time, situation, Certified Midwife are equal bilaterally Moves all extremities. Full function Gait is steady, Speech is normal, Facial symmetry appears normal, Pupils are PERRLA. Cardiovascular: Patient's skin is warm and dry. Respiratory: Airway is patent Respiratory effort is even, unlabored, Respiratory pattern is symmetrical, tachypnea GI: No signs and/or symptoms were reported involving the gastrointestinal system. : No signs and/or symptoms were reported regarding the genitourinary system. Derm: Skin is pink, warm \T\ dry. Musculoskeletal: No signs and/or symptoms reported regarding the musculoskeletal system. 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 - Social history:: Smoking status: Patient uses tobacco products, smokes one-half pack cigarettes per day. - Ebola Screening: : No symptoms or risks identified at this time. Screenin:59 Abuse screen: Denies threats or abuse. Denies injuries from another. Nutritional jl7 screening: No deficits noted. Tuberculosis screening: No symptoms or risk factors identified. Fall Risk IV access (20 points). [place] Fall Scale indicates No Risk (0-24 pts). Assessment: 07:20 General: See triage assessment. jl7 08:10 Reassessment: Patient and/or family updated on plan of care and expected duration. Pain jl7 level reassessed. Patient is alert, oriented x 3, equal unlabored respirations, skin warm/dry/pink. Pain: Pain currently is 7 out of 10 on a pain scale. Vital Signs: 07:22 BP 132 / 91; Pulse 81; Resp 22 S; Temp 97.6(O); Pulse Ox 97% on R/A; Weight 72.57 kg jl7 (R); Height 5 ft. 1 in. (154.94 cm) (R); Pain 10/10; 08:10 BP 114 / 76; Pulse 68; Resp 16; Pulse Ox 98% on R/A; Pain 7/10; jl7 07:22 Body Mass Index 30.23 (72.57 kg, 154.94 cm) jl7 ED Course: 07:15 Patient arrived in ED. bd 07:19 Diya Fajardo, PEEWEE is Primary Nurse. jl7 07:21 Anthony Razo NP is PHCP. pm1 07:21 Galo Jolley MD is Attending Physician. pm1 07:21 Triage completed. jl7 07:22 Arm band placed on right wrist. jl7 07:30 Inserted saline lock: 20 gauge in right antecubital area, using aseptic technique. iw 07:36 CT completed. Patient tolerated procedure well. Patient moved to CT via wheelchair. jg6 Patient moved back from CT. 07:38 CT Head Brain wo Cont In Process Unspecified. EDMS 07:40 Urine collected: clean catch specimen, clear. mh5 07:59 Patient has correct armband on for positive identification. Placed in gown. Bed in low jl7 position. Call light in reach. Side rails up X 1. Pulse ox on. NIBP on. 08:13 Jayce Young MD is Referral Physician. pm1 08:22 No provider procedures requiring assistance completed. IV discontinued, intact, jl7 bleeding controlled, No redness/swelling at site. Pressure dressing applied. Administered Medications: 07:52 Drug: TORadol 30 mg Route: IVP; Site: right antecubital; jl7 08:10 Follow up: Response: No adverse reaction; Pain is decreased jl7 07:55 Not Given (Hospital is out of IV Benadryl): Benadryl 25 mg IVP once jl7 07:56 Drug: Reglan 10 mg Route: PO; jl7 08:10 Follow up: Response: No adverse reaction jl7 07:56 Drug: Benadryl 25 mg Route: PO; jl7 08:10 Follow up: Response: No adverse reaction jl7 08:16 Not Given (Other Intervention Used): Reglan 10 mg IVP once; over 1 to 2 minutes jl7 Outcome: 08:13 Discharge ordered by MD. pm1 08:22 Discharged to home ambulatory. jl7 08:22 Condition: stable 08:22 Discharge instructions given to patient, Instructed on discharge instructions, follow up and referral plans. medication usage, Demonstrated understanding of instructions, follow-up care, medications. 08:22 Patient left the ED. jl7 Signatures: Dispatcher [employer] EDMS Sosa Dominguez Irene, Anthony Martinez RN, NP FILENET ARCHITECT 1 Raquel Sarm[facility] Diya Fajardo RN RN jl7 Leanna Weaver jg6
[2018-06-26 08:43] VITALS: TEMP 97.6
[2018-06-26 08:45] VITALS: BP 114/76; O2SAT 98
[2018-06-26 11:19] LABS: Urine Blood NEGATIVE (NEG); Urine Glucose NEGATIVE (NEG); Urine Protein NEGATIVE (NEG); Urine Specific Gravity >1.030 (1.005-1.030)
== END 2018-06-26 08:22 | disposition home or self-care (01) ==
LOC: ER 07:14
DX: R51 Headache (principal); F17.210 Nicotine dependence, cigarettes, uncomplicated; Z88.5 Allergy status to narcotic agent
CPT/HCPCS: 70450; 81003; 81025; 96374; 99284

== ENCOUNTER 2018-09-11 18:42 | Emergency (ER) | payer OTHER ==
--- OUTSIDE RECORDS SUMMARY | 2018-09-11 18:44 | XMS REPORT | Continuity of Care Document ---
[...] Number For Provider Date Date Visit Outpatient [id number] DOROTEO 02/22 Active [facility] Outpatient [id number] D[facility] 02/27 Active [facility] Outpatient [id number] D[facility] 03/22 Active [facility] Outpatient [id number] DOROTEO 04/21 Active [facility] Outpatient [id number] DOROTEO 06/02 Active [facility] Outpatient [id number] DOROTEO 07/21 [facility] Procedures Procedure Code Date Perfomer Comments Source
--- OUTSIDE RECORDS SUMMARY | 2018-09-11 18:45 | XMS REPORT ---
:1990 [facility] [address] [place] [address] Dr. Bhakta [address] [place] [id number] Care Team Providers Name Role Phone LAYA [...] Urine (test code=URC1) 75 MSF Chemistry - [id number] 11:43:00 Test Item Value Reference Range Comments [...] 2 - 3 months 10,000 - 100,000 [id number] 21:09:00 Test Item Value Reference Range Comments [...] None Seen Urine Source: Urine Clean CatchType [id number] 21:02:00 Test Item Value Reference Range Comments Blood Type Rh (test code=BT) BP [id number] 21:01:00 Test Item Value Reference Range Comments [...] (test 18 U/L 8-55 code=ALT) Chemistry - [id number] 21:01:00 Test Item Value Reference Range Comments Chemistry - Specials (test POSITIVE NEGATIVE Method of sensitivity- code=BHCGST) Indeterminant: results should be repeated after 48-72 hrs Positive: results may be detected as early as 1 day after the first missed menses. [id number] 20:48:00 Test Item Value Reference Range Comments [...]
--- NOTE | 2018-09-11 19:39 | ER ---
Nurse's Notes [facility] Name: Judy Ivory Age: 27 yrs Sex: Female : 1990 Arrival Date: 09/11/2018 Time: 18:44 Bed 14 Private MD: Eduar Mcelroy E; out of town, doctor Diagnosis: Dental caries Presentation: 09/11 18:53 Presenting complaint: Patient states: Reports an abscess to the upper gum line, reports sg having sinus pressure that is causing her migraines to worsen, has an appointment with neurology on Tuesday to be evaluated for the migraines, denies N/V/D. Transition of care: patient was not received from another setting of care. Onset of symptoms was September 11, 2018. Risk Assessment: Do you want to hurt yourself or someone else? Patient reports no desire to harm self or others. Initial Sepsis Screen: Does the patient meet any 2 criteria? No. Patient's initial sepsis screen is negative. Does the patient have a suspected source of infection? No. Patient's initial sepsis screen is negative. Care prior to arrival: None. 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 - Social history:: Smoking status: Patient uses tobacco products, smokes one-half pack cigarettes per day. - Ebola Screening: : Patient negative for fever greater than or equal to 101.5 degrees Fahrenheit, and additional compatible Ebola Virus Disease symptoms Patient denies exposure to infectious person Patient denies travel to an Ebola-affected area in the 21 days before illness onset No symptoms or risks identified at this time. Screenin:15 Abuse screen: Denies threats or abuse. Denies injuries from another. Nutritional aa1 screening: No deficits noted. Tuberculosis screening: No symptoms or risk factors identified. Fall Risk None identified. Assessment: 19:15 General: Appears in no apparent distress. comfortable, unkempt, Behavior is calm, aa1 cooperative, appropriate for age. Pain: Complains of pain in mouth Pain currently is 10 out of 10 on a pain scale. Neuro: Level of Consciousness is awake, alert, obeys commands, Oriented to person, place, time, situation, Moves all extremities. Full function Gait is steady. Respiratory: Airway is patent Respiratory effort is even, unlabored, Respiratory pattern is regular, symmetrical. GI: No signs and/or symptoms were reported involving the gastrointestinal system. : No signs and/or symptoms were reported regarding the genitourinary system. EENT: Oral mucosa is moist. Poor dentition noted. Dental caries noted in throughout entire dentition. Derm: Skin is intact, is healthy with good turgor, Skin is pink, warm \T\ dry. Musculoskeletal: Circulation, motion, and sensation intact. Capillary refill < 3 seconds. 19:56 Reassessment: Patient appears in no apparent distress at this time. Patient is alert, aa1 oriented x 3, equal unlabored respirations, skin warm/dry/pink. Discussed d/c \T\ f/u instructions with pt; denies questions or concerns at this time. Vital Signs: 18:54 BP 122 / 78; Pulse 104; Resp 17; Temp 98.1; Pulse Ox 99% on R/A; Weight 72.57 kg (R); sg Height 5 ft. 1 in. (154.94 cm); Pain 10/10; 19:56 BP 121 / 82; Pulse 94; Resp 18; Pulse Ox 99% on R/A; Pain 8/10; aa1 18:54 Body Mass Index 30.23 (72.57 kg, 154.94 cm) ED Course: 18:44 Patient arrived in ED. sb2 18:44 out of town, doctor is Private Physician. sb2 18:44 Eduar Mcelroy MD is Private Physician. sb2 18:54 Triage completed. sg 18:54 Arm band placed on. sg 19:04 Anthony Razo NP is PHCP. pm1 19:05 Larry Rodríguez MD is Attending Physician. pm1 19:13 Anna Rios RN is Primary Nurse. aa1 19:15 Patient has correct armband on for positive identification. Bed in low position. Call aa1 light in reach. 19:56 No provider procedures requiring assistance completed. Patient did not have IV access aa1 during this emergency room visit. Administered Medications: 19:40 Drug: TORadol 60 mg Route: IM; Site: left gluteus; aa1 19:58 Follow up: Response: No adverse reaction; Medication administered at discharge. aa1 Outcome: 19:38 Discharge ordered by MD. pm1 19:56 Discharged to home ambulatory, with significant other. aa1 19:56 Condition: good 19:56 Discharge instructions given to patient, significant other, Instructed on discharge instructions, follow up and referral plans. medication usage, Demonstrated understanding of instructions, follow-up care, medications, Prescriptions given X 1. 19:58 Patient left the ED. aa1 Signatures: Joe Durán RN RN sg Anna Rios RN RN aa1 Anthony Razo, MARY KATE COMMERCIAL ANALYST pm1 Marianne Zimmerman sb2 Corrections: (The following items were deleted from the chart) 18:57 18:54 Pulse 77bpm; Resp 17bpm; Pulse Ox 99% RA; Temp 98.1F; 72.57 kg Reported; Height 5 sg ft. 1 in.; BMI: 30.2; Pain 10/10; sg
--- NOTE | 2018-09-11 19:39 | EDPHYS ---
Physician Documentation [facility] Name: Judy Ivory Age: 27 yrs Sex: Female : 1990 Arrival Date: 09/11/2018 Time: 18:44 Bed 14 Private MD: Eduar Mcelroy E; out of town, doctor ED Physician Larry Rodríguez HPI: 09/11 19:40 This 27 yrs old Female presents to ER via Ambulatory with complaints of pm1 Dental Abscess. 19:40 The patient presents with pain, swelling. The problem is located in the upper right pm1 central incisor and upper left central incisor. Onset: The symptoms/episode began/occurred today. Duration: The symptoms are continuous. Modifying factors: The symptoms are alleviated by nothing, the symptoms are aggravated by nothing. Associated signs and symptoms: Pertinent positives: pain, swelling, Pertinent negatives: fever, inability to eat. The patient has experienced similar episodes in the past, chronically. The patient has not recently seen a physician. 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 - Social history:: Smoking status: Patient uses tobacco products, smokes one-half pack cigarettes per day. - Ebola Screening: : Patient negative for fever greater than or equal to 101.5 degrees Fahrenheit, and additional compatible Ebola Virus Disease symptoms Patient denies exposure to infectious person Patient denies travel to an Ebola-affected area in the 21 days before illness onset No symptoms or risks identified at this time. ROS: 19:40 Constitutional: Negative for fever, chills, and weight loss, Eyes: Negative for injury, pm1 pain, redness, and discharge. 19:40 Neck: Negative for injury, pain, and swelling, Cardiovascular: Negative for chest pain, palpitations, and edema, Respiratory: Negative for shortness of breath, cough, wheezing, and pleuritic chest pain, Abdomen/GI: Negative for abdominal pain, nausea, vomiting, diarrhea, and constipation, Back: Negative for injury and pain, : Negative for injury, bleeding, discharge, and swelling, MS/Extremity: Negative for injury and deformity, Skin: Negative for injury, rash, and discoloration, Neuro: Negative for headache, weakness, numbness, tingling, and seizure. 19:40 ENT: Positive for dental pain. Exam: 19:40 Constitutional: This is a well developed, well nourished patient who is awake, alert, pm1 and in no acute distress. Head/Face: Normocephalic, atraumatic. Eyes: Pupils equal round and reactive to light, extra-ocular motions intact. Lids and lashes normal. Conjunctiva and sclera are non-icteric and not injected. Cornea within normal limits. Periorbital areas with no swelling, redness, or edema. 19:40 Neck: Trachea midline, no thyromegaly or masses palpated, and no cervical lymphadenopathy. Supple, full range of motion without nuchal rigidity, or vertebral point tenderness. No Meningismus. Chest/axilla: Normal chest wall appearance and motion. Nontender with no deformity. No lesions are appreciated. Cardiovascular: Regular rate and rhythm with a normal S1 and S2. No gallops, murmurs, or rubs. Normal PMI, no JVD. No pulse deficits. Respiratory: Lungs have equal breath sounds bilaterally, clear to auscultation and percussion. No rales, rhonchi or wheezes noted. No increased work of breathing, no retractions or nasal flaring. Abdomen/GI: Soft, non-tender, with normal bowel sounds. No distension or tympany. No guarding or rebound. No evidence of tenderness throughout. Back: No spinal tenderness. No costovertebral tenderness. Full range of motion. Skin: Warm, dry with normal turgor. Normal color with no rashes, no lesions, and no evidence of cellulitis. MS/ Extremity: Pulses equal, no cyanosis. Neurovascular intact. Full, normal range of motion. 19:40 ENT: External ear(s): are unremarkable, Ear canal(s): are normal, TM's: are normal, Nose: is normal, Dental exam: abscess, is not appreciated, dental caries, that is severe, diffusely. 19:40 Neuro: Orientation: is normal, Motor: is normal, moves all fours. Vital Signs: 18:54 BP 122 / 78; Pulse 104; Resp 17; Temp 98.1; Pulse Ox 99% on R/A; Weight 72.57 kg (R); sg Height 5 ft. 1 in. (154.94 cm); Pain 10/10; 19:56 BP 121 / 82; Pulse 94; Resp 18; Pulse Ox 99% on R/A; Pain 8/10; aa1 18:54 Body Mass Index 30.23 (72.57 kg, 154.94 cm) MDM: 19:06 Patient medically screened. [facility] 19:36 Data reviewed: vital signs. Data interpreted: Pulse oximetry: on room air is 99 %. pm1 Interpretation: normal. Counseling: I had a detailed discussion with the patient and/or guardian regarding: the historical points, exam findings, and any diagnostic results supporting the discharge/admit diagnosis, the need for outpatient follow up, for definitive care, a dentist, to return to the emergency department if symptoms worsen or persist or if there are any questions or concerns that arise at home. Administered Medications: 19:40 Drug: TORadol 60 mg Route: IM; Site: left gluteus; [facility] 19:58 Follow up: Response: No adverse reaction; Medication administered at discharge. aa1 Disposition: 09/12 07:25 Co-signature as Attending Physician, Larry Rodríguez MD I agree with the assessment and [facility] plan of care. Disposition: 09/11/18 19:38 Discharged to Home. Impression: Dental caries. - Condition is Stable. - Discharge Instructions: Dental Pain. - Prescriptions for Augmentin 875- 125 mg Oral Tablet - take 1 tablet by ORAL route every 12 hours for 10 days; 20 tablet. - Medication Reconciliation Form, Thank You Letter, Antibiotic Education, Prescription Opioid Use form. - Follow up: Emergency Department; When: As needed; Reason: Worsening of condition. Follow up: Private Physician; When: 2 - 3 days; Reason: Recheck today's complaints, Continuance of care, Re-evaluation by your physician. - Problem is new. - Symptoms have improved. Signatures: Joe Durán RN RN Anna Rios RN RN aa1 Larry Rodríguez MD MD cha Marinas, Patrick, MINER MINER pm1 Corrections: (The following items were deleted from the chart) 09/11 19:58 19:38 09/11/2018 19:38 Discharged to Home. Impression: Dental caries. Condition is aa1 Stable. Forms are Medication Reconciliation Form, Thank You Letter, Antibiotic Education, Prescription Opioid Use. Follow up: Emergency Department; When: As needed; Reason: Worsening of condition. Follow up: Private Physician; When: 2 - 3 days; Reason: Recheck today's complaints, Continuance of care, Re-evaluation by your physician. Problem is new. Symptoms have improved. pm1
[2018-09-11] MEDS ORDERED: KETOROLAC 30 MG/ML INJ ONE (19:47)
[2018-09-12 02:04] VITALS: TEMP 98.1; O2SAT 99
[2018-09-12 02:05] VITALS: BP 121/82
== END 2018-09-11 19:58 | disposition home or self-care (01) ==
LOC: ER 18:42
DX: K02.9 Dental caries, unspecified (principal); F17.210 Nicotine dependence, cigarettes, uncomplicated
CPT/HCPCS: 96372; 99283

== ENCOUNTER 2018-10-15 11:14 | Emergency (ER) | payer OTHER ==
--- OUTSIDE RECORDS SUMMARY | 2018-10-15 11:16 | XMS REPORT | Continuity of Care Document ---
[...] Number For Provider Date Date Visit Outpatient [id number] DOROTEO 02/22 Active [facility] [place] Outpatient [id number] DOROTEO 02/27 Active [facility] [place] Outpatient [id number] DOROTEO 03/22 Active [facility] [place] Outpatient [id number] DOROTEO 04/21 Active [facility] [place] Outpatient [id number] DOROTEO 06/02 Active [facility] [place] Outpatient [id number] DOROTEO 07/21 [facility] [place] Procedures Procedure Code Date Perfomer Comments Source
--- OUTSIDE RECORDS SUMMARY | 2018-10-15 11:16 | XMS REPORT ---
:1990 [facility] Address [address] [place] [address] [address]. [address] [place] [address] Care Team Providers Name Role Phone LAYA [...] Urine (test code=URC1) 75 MSF Chemistry - [id number] 11:43:00 Test Item Value Reference Range Comments [...] 2 - 3 months 10,000 - 100,000 [id number] 21:09:00 Test Item Value Reference Range Comments [...] None Seen Urine Source: Urine Clean CatchType [id number] 21:02:00 Test Item Value Reference Range Comments Blood Type Rh (test code=BT) BP [id number] 21:01:00 Test Item Value Reference Range Comments [...] (test 18 U/L 8-55 code=ALT) Chemistry - [id number] 21:01:00 Test Item Value Reference Range Comments Chemistry - Specials (test POSITIVE NEGATIVE Method of sensitivity- code=BHCGST) Indeterminant: results should be repeated after 48-72 hrs Positive: results may be detected as early as 1 day after the first missed menses. [id number] 20:48:00 Test Item Value Reference Range Comments [...]
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
[2018-10-15 12:09] VITALS: BP 129/83; TEMP 97.8; O2SAT 100
== END 2018-10-15 12:00 | disposition home or self-care (01) ==
LOC: ER 11:14
DX: S00.33XA Contusion of nose, initial encounter (principal); X58.XXXA Exposure to other specified factors, initial encounter; Y93.9 Activity, unspecified; Y92.9 Unspecified place or not applicable; Z88.5 Allergy status to narcotic agent; F17.210 Nicotine dependence, cigarettes, uncomplicated
CPT/HCPCS: 99281

== ENCOUNTER 2020-05-17 19:11 | Emergency (ER) | payer OTHER ==
--- OUTSIDE RECORDS SUMMARY | 2020-05-17 19:13 | XMS REPORT | Continuity of Care Document ---
:[address] [facility] t Address [address] [place] [address] Care Team Providers Name Role Phone Edin Muñoz MD Attending Clinician Doctor Unassigned, Name Attending Clinician Unavailable Lab, Cbc Attending Clinician Unavailable PIEDAD Attending Clinician Unavailable CURTIS Attending Clinician Unavailable Payers Payer Name Policy Type Policy Number Effective Date Expiration Date S ource Problems This patient has no known problems. Allergies, Adverse Reactions, Alerts Allergy Allergy Status Severity Reaction(s) Onset Inactive Treating Comm ents Source Name Type Date Date Clinician No Known DA Active U [facility] Allergie 03-20 [facility] s 00:00: d 00 [facility] Medications This patient has no known medications. Procedures This patient has no known procedures. Encounters Start End Encounter Admission Attending Care Care Encounter Source Date/Time Date/Time Type Type Clinicians Facility Department ID 2020-04-18 2020-04-18 Telephone Toni [facility] [id number] 00:00:00 00:00:00 Ashvin Carvajal [id number] [place] [id number] Teri [phone] [address] 2020-04-14 2020-04-14 Telephone Toni [facility] [id number] 00:00:00 00:00:00 Ashvin Carvajal [id number] [place] [id number] Professio [phone] [facility]2 [facility] 2020-04-14 2020-04-14 Orders Doctor GUS [id number] 00:00:00 00:00:00 Only Unassigned, JULIOCESAR [id number] [facility] [id number] 2020-04-11 2020-04-11 Telephone [facility] [id number] 00:00:00 00:00:00 Ashvin Carvajal [id number] [place] [id number] Professio [phone] [address] 2020-04-09 2020-04-09 [employer] [facility], [facility] [id number] 09:39:01 09:54:01 Visit [facility] [id number] [place] [id number] [facility] [phone] Primary & 357 [facility] Care 2020-04-01 2020-04-01 Telephone [facility] [id number] 00:00:00 00:00:00 Ashvin Carvajal [id number] [place] [id number] Professio [phone] [address] 2020-03-28 2020-03-28 Office [facility] [id number] 15:02:40 15:54:52 Visit Ashvin Carvajal [id number] [place] [id number] Professio [phone] [address] Results Test Description Test Time Test Comments Results Result Comments Source URINALYSIS COMPLETE 2020-03-22 12:25:00 Test Item Value Reference Range Interpretation Comme nts UA COLOR (test code = COLU) LT YELLOW UA APPEARANCE (test code = APPU) SLHZY UA GLUCOSE DIPSTICK (test code = DGLUU) NORMAL mg/dl NORMAL UA BILIRUBIN DIPSTICK (test code = BILU) NEGATIVE mg/dL NEGATIVE UA KETONE DIPSTICK (test code = KETU) NEGATIVE mg/dl NEGATIVE UA SPECIFIC GRAVITY (test code = SGU) 1.015 1.000-1.030 UA BLOOD DIPSTICK (test code = PAPO) NEGATIVE Benedict/micL NEGATIVE UA PH DIPSTICK (test code = IRAIDA) 8.0 5.0-9.0 UA PROTEIN DIPSTICK (test code = PROU) NEGATIVE mg/dl NEGATIVE UA UROBILINIOGEN DIPSTICK (test code = URO) NORMAL mg/dl NORMAL UA NITRITE DIPSTICK (test code = QUENTIN) NEGATIVE NEGATIVE UA LEUKOCYTE ESTERASE DIPSTICK (test code = LEUU) NEGATIVE Palmer/micL NEGATIVE UA WBC (test code = WBCU) 0-3 WBC/HPF NONE UA RBC (test code = RBCU) NONE SEEN RBC/HPF 0-3 UA EPITHELIAL CELLS (test code = EPIU) 10-15 EPI/HPF 0-3 A UA BACTERIA (test code = BACU) FEW NONE UA AMORPHOUS SEDIMENT (test code = AMORU) FEW NONE UR HCG [id number] 12:25:00 Test Item Value Reference Range Interpretation Comments UR HCG QUAL (test code = HCGQLU) NEGATIVE NEGATIVE URINALYSIS [id number] 12:12:00 Test Item Value Reference Range Interpretation Comments UA COLOR (test code = COLU) LT YELLOW UA APPEARANCE (test code = SLHZY APPU) UA GLUCOSE DIPSTICK (test NORMAL mg/dl NORMAL code = DGLUU) UA BILIRUBIN DIPSTICK (test NEGATIVE mg/dL NEGATIVE code = BILU) UA KETONE DIPSTICK (test NEGATIVE mg/dl NEGATIVE code = KETU) UA SPECIFIC GRAVITY (test 1.015 1.000-1.030 code = SGU) UA BLOOD DIPSTICK (test NEGATIVE Benedict/micL NEGATIVE code = PAPO) UA PH DIPSTICK (test code = 8.0 5.0-9.0 IRAIDA) UA PROTEIN DIPSTICK (test NEGATIVE mg/dl NEGATIVE code = PROU) UA UROBILINIOGEN DIPSTICK NORMAL mg/dl NORMAL (test code = URO) UA NITRITE DIPSTICK (test NEGATIVE NEGATIVE code = QUENTIN) UA LEUKOCYTE ESTERASE NEGATIVE Palmer/micL NEGATIVE DIPSTICK (test code = LEUU) UA WBC (test code = WBCU) WBC/HPF NONE UA RBC (test code = RBCU) RBC/HPF 0-3 UA EPITHELIAL CELLS (test EPI/HPF 0-3 code = EPIU) UA BACTERIA (test code = NONE BACU) UR HCG [id number] 12:12:00 Test Item Value Reference Range Interpretation Comments UR HCG QUAL (test code = HCGQLU) NEGATIVE NEGATIVE URINALYSIS [id number] 12:11:00 Test Item Value Reference Range Interpretation Comments UA COLOR (test code = COLU) UA APPEARANCE (test code = APPU) UA GLUCOSE DIPSTICK (test code = mg/dl NORMAL DGLUU) UA BILIRUBIN DIPSTICK (test code = mg/dL NEGATIVE BILU) UA KETONE DIPSTICK (test code = mg/dl NEGATIVE KETU) UA SPECIFIC GRAVITY (test code = 1.000-1.030 SGU) UA BLOOD DIPSTICK (test code = PAPO) Benedict/micL NEGATIVE UA PH DIPSTICK (test code = IRAIDA) 5.0-9.0 UA PROTEIN DIPSTICK (test code = mg/dl NEGATIVE PROU) UA UROBILINIOGEN DIPSTICK (test mg/dl NORMAL code = URO) UA NITRITE DIPSTICK (test code = NEGATIVE QUENTIN) UA LEUKOCYTE ESTERASE DIPSTICK Palmer/micL NEGATIVE (test code = LEUU) UA WBC (test code = WBCU) WBC/HPF NONE UA RBC (test code = RBCU) RBC/HPF 0-3 UA EPITHELIAL CELLS (test code = EPI/HPF 0-3 EPIU) UA BACTERIA (test code = BACU) NONE UR HCG [id number] 12:11:00 Test Item Value Reference Range Interpretation Comments UR HCG QUAL (test code = HCGQLU) NEGATIVE NEGATIVE BASIC METABOLIC [id number] 11:18:00 Test Item Value Reference Range Interpretation Comments SODIUM (test code = NA) 141 mmol/l 134.0-147.0 N POTASSIUM (test code = K) 3.9 mmol/L 3.6-5.2 N CHLORIDE (test code = CL) 106 mmol/l 98.0-107.0 N CARBON DIOXIDE (test code = CO2) 28.0 mmol/l 21.0-33.0 N ANION GAP (test code = GAP) 10.9 0-20 N GLUCOSE (test code = GLU) 94 mg/dl 70.0-110.0 N BLOOD UREA NITROGEN (test code = 10 mg/dl 7.0-18.0 N BUN) CREATININE (test code = CREAT) 0.77 mg/dL 0.60-1.30 N GFR NON BLACK (test code = 94 mL/min 110-120 L GFRNONBLACK) GFR BLACK (test code = GFRBLACK) 113 mL/min 133-145 L CALCIUM (test code = CA) 8.9 mg/dl 8.0-10.5 N CBC W/AUTO [id number] 11:04:00 Test Item Value Reference Range Interpretation Comments WHITE BLOOD CELL (test code = 8.6 K/mm3 4.5-11.0 N WBC) RED BLOOD CELL (test code = 4.32 M/mm3 3.80-5.20 N RBC) HEMOGLOBIN (test code = HGB) 12.8 gm/dL 12.0-16.0 N HEMATOCRIT (test code = HCT) 40.3 % 36.0-48.0 N MEAN CELL VOLUME (test code = 93.3 UM3 82.0-99.0 N MCV) MEAN CELL HGB (test code = MCH) 29.6 UUG 25.5-32.5 N MEAN CELL HGB CONCETRATION 31.8 gm/dL 29.0-35.5 N (test code = MCHC) RED CELL DISTRIBUTION WIDTH 13.1 % 11.5-15.0 N (test code = RDW) RED CELL DISTRIBUTION WIDTH SD 44.8 fL 34.8-50.2 N (test code = RDW-SD) PLATELET COUNT (test code = 334 K/mm3 150-400 N PLT) MEAN PLATELET VOLUME (test code 9.0 fl 7.4-10.4 N = MPV) NEUTROPHIL % (test code = NT%) 53.2 % 49.0-76.0 N IMMATURE GRANULOCYTE % (test 0.3 % 0.0-0.4 N code = IG%) LYMPHOCYTE % (test code = LY%) 33.3 % 23.0-38.0 N MONOCYTE % (test code = MO%) 9.3 % 1.0-10.0 N EOSINOPHIL % (test code = EO%) 3.0 % 1.0-5.0 N BASOPHIL % (test code = BA%) 0.9 % 0.0-1.0 N NEUTROPHIL # (test code = NT#) 4.6 K/mm3 2.4-6.3 N IMMATURE GRANULOCYTE # (test 0.03 x10 3/uL 0.00-0.07 N code = IG#) LYMPHOCYTE # (test code = LY#) 2.9 K/mm3 1.2-4.0 N MONOCYTE # (test code = MO#) 0.8 K/mm3 0.0-0.6 H EOSINOPHIL # (test code = EO#) 0.3 K/MM3 0.0-0.7 N BASOPHIL # (test code = BA#) 0.1 K/mm3 0.0-0.2 N Culture, [id number] 10:59:00 Test Item Value Reference Range Interpretation Comments Culture, Urine (test Urine specimen contains 3 code = URC) or more different organisms, Culture, Urine (test clinically indicated. code = URC1) Culture, Urine (test NF N code = URC1) Culture, Urine (test 75 MSF N code = URC1) Chemistry - [id number] 11:43:00 Test Item Value Reference Range Interpretation Comments Chemistry - 130.11 mIU/mL See Ranges Males and Nonp regnant Specials (test code females: Less than = HCGQ) 10 mIU/mLPregna ncy, weeks of gestat ion mIU/mL 0.2 - 1 week 5 - 50 1 - 2 weeks 50 - 50 0 2 - 3 weeks 100 - 5,000 3 - 4 weeks 50 0 - 10,000 4 - 5 w eeks 1,000 - 50,000 5 - 6 weeks 10,000 - 10 0,000 6 - 8 weeks 15,00 0 - 200,000 2 - 3 months 10,000 - 100,00 0 [id number] 21:09:00 Test Item Value Reference Range Interpretation Comments Urinalysis (test code = Yellow Yellow UACLR) Urinalysis (test code = Turbid Clear A UACLY) Urinalysis (test code = 1.029 1.005-1.030 N SPGR) Urinalysis (test code = 5.5 5.0-9.0 N IRAIDA) Urinalysis (test code = Negative Negative UALEU) Urinalysis (test code = Negative Negative UANIT) Urinalysis (test code = 30 mg/dL Neg-Trace A PROUADIP) Urinalysis (test code = Negative mg/dL Negative GLUCU) Urinalysis (test code = Negative mg/dL Negative KETU) Urinalysis (test code = 0.2 mg/dL 0.2-1.0 UAUROB) Urinalysis (test code = Negative Negative UABIL) Urinalysis (test code = Large Negative A UABLD) Urinalysis (test code = GREATER THAN 50-TNTC 0-3 A UARBC) HPF Urinalysis (test code = 11-20 HPF 0-3 A UAWBC) Urinalysis (test code = 11-20 HPF 0-3 A UASQUAM) Urinalysis (test code = 4+ HPF None Seen A UABAC) Urine Source: Urine Clean CatchType [id number] 21:02:00 Test Item Value Reference Range Interpretation Comments Blood Type Rh (test code = BT) BP [id number] 21:01:00 Test Item Value Reference Range Interpretation Comments Chemistry (test 138 mmol/L 136-145 N code = NA-T) Chemistry (test 3.8 mmol/L 3.5-5.1 N code = K-T) Chemistry (test 104 mmol/L 98-107 N code = CL) Chemistry (test 25 mmol/L 22-29 N code = CO2) Chemistry (test 13 mmol/L 10-20 N code = ANGP) Chemistry (test 11 mg/dL 7.0-18.7 N code = BUN) Chemistry (test 0.78 mg/dL 0.6-1.1 N code = CREATT) Chemistry (test 89 Reference Ra nge for code = EGFRMDRD) Estimated G FR: Gre ater than 90 mL/min/ 1.73 m2NOTE:The MDRD equation has no t been validated for use with theeld erly (over 70 years of age), women, patients with serious comorbi d condition or pe rsons with extremes o fbody size, muscle ma ss, or nutritional status. Chemistry (test 117 mg/dL 70-105 H code = GLU-T) Chemistry (test 9.7 mg/dL 7.8-10.44 N code = CA) Chemistry (test Less than 0.3 0.2-1.2 N code = TBILI) mg/dL Chemistry (test 7.3 g/dL 6.0-8.3 N code = TP) Chemistry (test 4.0 g/dL 3.5-5.0 N code = ALB) Chemistry (test 3.3 g/dL 2.4-3.5 N code = GLOB) Chemistry (test 1.2 g/dL 1.2-2.2 N code = AG) Chemistry (test 41 U/L 40-150 N code = ALP) Chemistry (test 12 U/L 5-34 N code = AST) Chemistry (test 18 U/L 8-55 N code = ALT) Chemistry - [id number] 21:01:00 Test Item Value Reference Range Interpretation Comments Chemistry - Specials POSITIVE NEGATIVE A Method of sensitivity- (test code = BHCGST) Indete rminant: results should be repeated after 48-72 hrs Positive: results may be detected as ear ly as 1 day after the first missed menses. [id number] 20:48:00 Test Item Value Reference Range Interpretation Comments Hematology (test code = WBCT) 10.6 thou/uL 4.8-10.8 N Hematology (test code = RBCT) 4.38 mill/uL 4.20-5.40 N Hematology (test code = HGBT) 12.0 g/dL 12.0-16.0 N Hematology (test code = HCTT) 37.3 % 36.0-47.0 N Hematology (test code = MCV) 85.1 fl 81.0-99.0 N Hematology (test code = MCH) 27.5 pg 27.0-31.0 N Hematology (test code = MCHC) 32.3 g/dL 32.0-36.0 N Hematology (test code = RDW) 12.9 % 11.5-14.5 N Hematology (test code = PLTT) 398 thou/uL 130-400 N Hematology (test code = MPV) 6.0 fL 7.4-10.4 L Hematology (test code = %NEUT) 52.3 % 42.0-75.0 N Hematology (test code = %LYMPH) 36.5 % 21.0-51.0 N Hematology (test code = %MONO) 7.1 % 0.0-10.0 N Hematology (test code = %EOS) 2.9 % 0.0-10.0 N Hematology (test code = %BASO) 1.1 % 0.0-1.0 H Hematology (test code = NEUT#) 5.6 thou/uL 1.40-6.50 N Hematology (test code = LYMPH#) 3.9 thou/uL 1.20-3.40 H Hematology (test code = MONO#) 0.8 thou/uL 0.11-0.59 H Hematology (test code = EOS#) 0.3 thou/uL 0.0-0.7 N Hematology (test code = BASO#) 0.1 thou/uL 0.0-0.2 N
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
--- OUTSIDE RECORDS SUMMARY | 2020-05-17 19:14 | XMS REPORT | Summary of Care ---
:1990 Author Organization [facility] Address [address] [place] [address] Care Team Providers Name Role Phone Pcp, Does Not Have A Primary Care Provider Reason for Visit Reason Comments Follow-up medication Encounter Details Date Type Department Care Team Description 03/28/2020 Office Visit [facility] Ashvin Muñoz Migraine wit hout aura and without status migrainosus, not intractable (Primary Dx); [place] Poor dentition; [address] [place] [address] [address] Transient [address] of [address], [address] [place] [phone] Allergies Active Allergy Reactions Severity Noted [...] hours. 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 The text was dictated into the template via [employer] Naturally Speaking. documented in this encounter Plan [...] Effective Dates Phone Addre ss Type Group [facility] xxxxxxxxx 2018-Present Medicaid COMM PLAN - MANAGED MEDICAID (Work) [id number] documented as of this encounter Advance Directives Name Relationship Healthcare Agent Relationship Co mmunication Mel Dewitt Mother Primary healthcare agent
--- OUTSIDE RECORDS SUMMARY | 2020-05-17 19:14 | XMS REPORT | Summary of Care ---
:1990 Author Organization [facility] Address [address] [place] [address] Care Team Providers Name Role Phone Pcp, Does Not Have A Primary Care Provider Reason for Visit Reason Comments Rx Concern/Question Refill Request Encounter Details Date Type Department Care Team Description 03/19/2020 Telephone [facility] Ashvin Muñoz, Rx Con cern/Question; Neurology-[place] KELLEY Refill Request [address], [address] [place] [phone] Allergies Active Allergy Reactions Severity Noted Date Comments Hydrocodone Nausea and/or Vomiting 11/15/2009 documented as of this encounter (statuses as of 03/20/2020) Medications Medication Sig Dispensed Refills Start Date End Date Status ketorolac 10 mg Take 1 20 tablet 0 06/11/2018 Act baljeet tablet tablet by mouth every 6 (six) hours as needed (headache). metoclopramide HCl Take 1 20 tablet 0 06/11/2018 Active 10 mg tablet tablet by mouth every 6 (six) hours as needed (headache and/or nausea). [id number] 0 08/14/2018 Active affeine 50-325-40 mg per capsule ondansetron 4 mg TK 1 T PO Q 0 06/26/2018 Active tablet 12 H PRN diphenhydrAMINE Take 50 mg 0 Act baljeet (BENADRYL) 25 mg by mouth as capsule needed for Allergies. naproxen sodium Take 1 0 Acti ve (ALEVE) 220 mg capsule by capsule mouth as needed. acetaminophen Take 650 mg 0 Acti ve (TYLENOL) 325 mg Cap by mouth as needed. zonisamide 100 mg Take 1 60 capsule 3 03/20/2020 Active capsuleIndications: capsule by Migraine without mouth 2 aura and without (two) times status migrainosus, daily. not intractable sumatriptan Take 1 9 tablet 2 03/20/2020 Active (IMITREX) 100 mg tablet by tabletIndications: mouth as Migraine without needed for aura and without Migraine. status migrainosus, Per day. not intractable amitriptyline 25 mg Take 1 30 tablet 3 03/20/2020 Active tabletIndications: tablet by Migraine without mouth at aura and without bedtime. status migrainosus, not intractable amitriptyline 25 mg Take 1 30 tablet 3 05/14/2019 03/20/20 Discontinued tabletIndications: tablet by 20 ( Reorder) Migraine without mouth at aura and without bedtime. status migrainosus, not intractable zonisamide 100 mg Take 1 60 capsule 3 05/14/2019 03/20/20 Discontinued capsuleIndications: capsule by 20 (Reorder) Migraine without mouth 2 aura and without (two) times status migrainosus, daily. not intractable sumatriptan Take 1 9 tablet 2 02/04/2020 03/20/20 Discont inued (IMITREX) 100 mg tablet by 20 (Re order) tabletIndications: mouth as Migraine without needed for aura and without Migraine. status migrainosus, Per day. not intractable zonisamide 100 mg Take 1 60 capsule 3 03/20/2020 03/20/20 Discontinued capsuleIndications: capsule by 20 (Reorder) Migraine without mouth 2 aura and without (two) times status migrainosus, daily. not intractable sumatriptan Take 1 9 tablet 2 03/20/2020 03/20/20 Discont inued (IMITREX) 100 mg tablet by 20 (Re order) tabletIndications: mouth as Migraine without needed for aura and without Migraine. status migrainosus, Per day. not intractable amitriptyline 25 mg Take 1 30 tablet 3 03/20/2020 03/20/20 Discontinued tabletIndications: tablet by 20 ( Reorder) Migraine without mouth at aura and without bedtime. 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 Supervision of high-risk of young primigravida 11/200902/18/2016 Obesity 11/18/2009 02/18/2016 Second-degree perineal laceration, with delivery 11/17/2009 02/18/2016 Streptococcus B carrier or suspected carrier 11/17/2009 02/18/2016 Teen 11/17/2009 02/18/2016 Chlamydia 11/17/2009 02/18/2016 documented as of this encounter (statuses as of 03/20/2020) Immunizations Name Administration Dates Next Due HPV9 [...] aura and without status migrainosus, not intractable Migraine without aura, without mention o f intractable migraine without mention of status migrainosus documented in this encounter Insurance Payer Benefit Plan / Subscriber ID Effective Dates Phone Addre ss Type Group [facility] xxxxxxxxx 2018-Present Medicaid COMM PLAN - MANAGED MEDICAID [facility] [place] [facility] Effective for Medicaid COMM PLAN - all dates MANAGED MEDICAID documented as of this encounter Advance Directives Name Relationship Healthcare Agent Relationship Co mmunication Mel Dewitt Mother Primary healthcare agent
--- OUTSIDE RECORDS SUMMARY | 2020-05-17 19:14 | XMS REPORT | Summary of Care ---
:1990 Author Organization [facility] Address [address] [place] [address] Care Team Providers Name Role Phone Pcp, Does Not Have A Primary Care Provider Reason for Visit Reason Comments Assessment Rx Concern/Question Encounter Details Date Type Department Care Team Description 04/01/2020 Telephone [facility] Ashvin Muñoz, Assess ment; Rx Neurology[place] Concern/Question [address] [place], [place] [address], [address] [place] [phone] Allergies Active Allergy Reactions Severity Noted Date Comments Hydrocodone Nausea and/or Vomiting 11/15/2009 documented as of this encounter (statuses as of 04/03/2020) Medications Medication Sig Dispensed Refills Start Date End Date Status ketorolac 10 mg tablet Take 1 tablet by 20 tablet 0 06/11/2018 Active mouth every 6 (six) hours as needed (headache). metoclopramide HCl 10 mg Take 1 tablet by 20 tablet 0 06/11/20 18 Active tablet mouth every 6 (six) hours as needed (headache and/or nausea). ondansetron 4 mg tablet TK 1 T PO Q 12 H 0 8 Active PRN diphenhydrAMINE Take 50 mg by 0 Active (BENADRYL) 25 mg capsule mouth as needed for Allergies. naproxen sodium (ALEVE) Take 1 capsule 0 Active 220 mg capsule by mouth as needed. acetaminophen (TYLENOL) Take 650 mg by 0 Active 325 mg Cap mouth as needed. sumatriptan (IMITREX) Take 1 tablet by 9 tablet 2 03/20/2020 Active 100 mg mouth as needed tabletIndications: for Migraine. Migraine without aura Per day. and without status migrainosus, not intractable amitriptyline 25 mg Take 2 tablets 60 tablet 3 03/28/2020 Active tabletIndications: by mouth at Migraine without aura bedtime. and without status migrainosus, not intractable divalproex 250 mg EC Take 1 tablet by 60 tablet 1 03/28/2020 Active tabletIndications: mouth every 12 Migraine without aura (twelve) hours. 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 Supervision of high-risk of young primigravida 11/200902/18/2016 Obesity 11/18/2009 02/18/2016 Second-degree perineal laceration, with delivery 11/17/2009 02/18/2016 Streptococcus B carrier or suspected carrier 11/17/2009 02/18/2016 Teen 11/17/2009 02/18/2016 Chlamydia 11/17/2009 02/18/2016 documented as of this encounter (statuses as of 04/03/2020) Immunizations Name Administration Dates Next Due HPV9 [...] Effective Dates Phone Addre ss Type Group [facility] xxxxxxxxx 2018-Present Medicaid COMM PLAN - MANAGED MEDICAID [facility] Effective for Medicaid COMM PLAN - all dates MANAGED MEDICAID documented as of this encounter Advance Directives Name Relationship Healthcare Agent Relationship Co mmunication Mel Dewitt Mother Primary healthcare agent
--- OUTSIDE RECORDS SUMMARY | 2020-05-17 19:15 | XMS REPORT | Summary of Care ---
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 [place] [address] Migraine without Primary and Lab, [facility] Cbc aura and without Specialty Care Lab status migrainosus, [id number] [address] [place] [address] Allergies Active Allergy Reactions Severity Noted Date Comments Hydrocodone Nausea and/or Vomiting 11/15/2009 documented as of this encounter (statuses as of 04/09/2020) Medications Medication Sig Dispensed Refills Start Date [...] as of this encounter (statuses as of 04/09/2020) Active Problems Patient Care Coordination Note IOL [...] as of this encounter (statuses as of 04/09/2020) Resolved Problems Problem Noted Date Resolved Date [...] anemia 11/18/2009 02/18/2016 Overview: ICD10 Diagnosis 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 Supervision of high-risk of young primigravida 11/200902/18/2016 Obesity 11/18/2009 02/18/2016 Second-degree perineal laceration, with delivery 11/17/2009 02/18/2016 Streptococcus B carrier or suspected carrier 11/17/2009 02/18/2016 Teen 11/17/2009 02/18/2016 Chlamydia 11/17/2009 02/18/2016 documented as of this encounter (statuses as of 04/09/2020) Immunizations Name Administration Dates Next Due HPV9 09/27/2016 TDAP 07/13/2016 documented as of this encounter Social [...] filedocumented in this encounter Plan of Treatment Name Type Priority Associated Diagnoses Date/Ti me VALPROIC ACID, TOTAL LAB Routine Migraine without aur a and 04/09/2020 9:48 AM CDT without status migrainosus, not intractable Health Maintenance Due Date Last [...] Effective Dates Phone Addre ss Type Group [facility]Present Medicaid COMM PLAN - MANAGED MEDICAID (Work) [id number] documented as of this encounter Advance Directives Name Relationship Healthcare Agent Relationship Co mmunication Mel Dewitt Mother Primary healthcare agent
--- OUTSIDE RECORDS SUMMARY | 2020-05-17 19:15 | XMS REPORT | Summary of Care ---
:[address] [facility] Address [address] [place] [address] Care Team Providers Name Role Phone Pcp, Does Not Have A Primary Care Provider Reason for Visit Reason Comments Rx Concern/Question Encounter Details Date Type Department Care Team Description 04/11/2020 Telephone [facility] Ashvin Muñoz, Rx Con cern/Question Neurology-Alena KELLEY [address] [place] [address], [address] [place] [address]. [address] [place] [address] Allergies Active Allergy Reactions Severity Noted Date Comments Hydrocodone Nausea and/or Vomiting 11/15/2009 documented as of this encounter (statuses as of 04/11/2020) Medications Medication Sig Dispensed Refills Start Date End Date Status ketorolac 10 mg Take 1 tablet 20 tablet 0 06/11/2018 Active tablet by mouth every 6 (six) hours as needed (headache). metoclopramide HCl 10 Take 1 tablet 20 tablet 0 06/11/2018 Active mg tablet by mouth every 6 (six) hours as needed (headache and/or nausea). ondansetron 4 mg TK 1 T PO Q 0 06/26/2018 Active tablet 12 H PRN diphenhydrAMINE Take 50 mg by 0 Active (BENADRYL) 25 mg mouth as capsule needed for Allergies. naproxen sodium Take 1 0 Acti ve (ALEVE) 220 mg capsule by capsule mouth as needed. acetaminophen Take 650 mg 0 Acti ve (TYLENOL) 325 mg Cap by mouth as needed. sumatriptan (IMITREX) Take 1 tablet 9 tablet 2 03/20/2020 Active 100 mg by mouth as tabletIndications: needed for Migraine without aura Migraine. Per and without status day. migrainosus, not intractable amitriptyline 25 mg Take 2 60 tablet 3 03/28/2020 Active tabletIndications: tablets by Migraine without aura mouth at and without status bedtime. migrainosus, not intractable divalproex 250 mg EC Take 1 tablet 60 tablet 1 04/11/2020 Active tabletIndications: by mouth Migraine without aura every 12 and without status (twelve) migrainosus, not hours. intractable, Transient alteration of awareness divalproex (DEPAKOTE) Take 1 tablet 60 tablet 1 04/11/2020 Active 125 mg EC tablet by mouth every 12 (twelve) hours. divalproex 250 mg EC Take 1 tablet 60 tablet 1 03/28/202003/18 Discontinued tabletIndications: by mouth 0 Migraine without aura every 12 and without status (twelve) migrainosus, not hours. 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 Supervision of high-risk of young primigravida 11/200902/18/2016 Obesity 11/18/2009 02/18/2016 Second-degree perineal laceration, with delivery 11/17/2009 02/18/2016 Streptococcus B carrier or suspected carrier 11/17/2009 02/18/2016 Teen 11/17/2009 02/18/2016 Chlamydia 11/17/2009 02/18/2016 documented as of this encounter (statuses as of 04/11/2020) Immunizations Name Administration Dates Next Due HPV9 [...] intractable migraine without mention of status migrainosus Transient alteration of awareness documented in this encounter Insurance Payer Benefit Plan / Subscriber ID Effective Dates Phone Addre ss Type Group [facility] xxxxxxxxx 2018-Present Medicaid COMM PLAN - MANAGED MEDICAID [facility] Effective for Medicaid COMM PLAN - all dates MANAGED MEDICAID documented as of this encounter Advance Directives Name Relationship Healthcare Agent Relationship Co mmunication Mel Dewitt Mother Primary healthcare agent
--- OUTSIDE RECORDS SUMMARY | 2020-05-17 19:15 | XMS REPORT | Summary of Care ---
:1990 Author Organization [facility] Address [address] [place] [address] Care Team Providers Name Role Phone Pcp, Does Not Have A Primary Care Provider Encounter Details Date Type Department Care Team Description 04/14/2020 Orders Only [facility] Doctor Unassigned, [address] [facility] [place] [address] [address] [place] [address] Allergies Active Allergy Reactions Severity Noted Date Comments Hydrocodone Nausea and/or Vomiting 11/15/2009 documented as of this encounter (statuses as of 04/16/2020) Medications Medication Sig Dispensed Refills Start Date [...] Take 1 tablet by 60 tablet 1 04/11/2020 Active tabletIndications: mouth every 12 Migraine without aura (twelve) hours. and without status migrainosus, not intractable, Transient alteration of awareness divalproex (DEPAKOTE) Take 1 tablet by 60 tablet 1 04/11/2020 Active 125 mg EC tablet mouth every 12 (twelve) hours. 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 Supervision of high-risk of young primigravida 11/200902/18/2016 Obesity 11/18/2009 02/18/2016 Second-degree perineal laceration, with delivery 11/17/2009 02/18/2016 Streptococcus B carrier or suspected carrier 11/17/2009 02/18/2016 Teen 11/17/2009 02/18/2016 Chlamydia 11/17/2009 02/18/2016 documented as of this encounter (statuses as of 04/16/2020) Immunizations Name Administration Dates Next Due HPV9 [...] Diagnosis Comme nts AUTHORIZATION FOR RELEASE Routine 04/14/2020 12:01 AM OF PHI CDT documented in this encounter Results Not on filedocumented in this encounter Insurance Payer Benefit Plan / Subscriber ID Effective Dates Phone Addre ss Type Group [facility] xxxxxxxxx 2018-Present Medicaid COMM PLAN - MANAGED MEDICAID [facility] Effective for Medicaid COMM PLAN - all dates MANAGED MEDICAID documented as of this encounter Advance Directives Name Relationship Healthcare Agent Relationship Co mmunication Mel Dewitt Mother Primary healthcare agent
--- OUTSIDE RECORDS SUMMARY | 2020-05-17 19:15 | XMS REPORT | Summary of Care ---
:1990 Author Organization [facility] Address [address] [place] [address] Care Team Providers Name Role Phone Pcp, Does Not Have A Primary Care Provider Reason for Visit Reason Comments Rx Concern/Question Encounter Details Date Type Department Care Team Description 04/14/2020 Telephone [facility] [place] [facility] Ashvin Muñoz, Rx Con cern/Question Neurology-Alena KELLEY [address] [place] [address], [address] [place] [address]. 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 Supervision of high-risk of young primigravida 11/200902/18/2016 Obesity 11/18/2009 02/18/2016 Second-degree perineal laceration, with delivery 11/17/2009 02/18/2016 Streptococcus B carrier or suspected carrier 11/17/2009 02/18/2016 Teen 11/17/2009 02/18/2016 Chlamydia 11/17/2009 02/18/2016 documented as of this encounter (statuses as of 04/14/2020) Immunizations Name Administration Dates Next Due HPV9 [...] Effective Dates Phone Addre ss Type Group [facility] xxxxxxxxx 2018-Present Medicaid COMM PLAN - MANAGED MEDICAID [facility] Effective for Medicaid COMM PLAN - all dates MANAGED MEDICAID documented as of this encounter Advance Directives Name Relationship Healthcare Agent Relationship Co mmunication Mel Dewitt Mother Primary healthcare agent
--- OUTSIDE RECORDS SUMMARY | 2020-05-17 19:16 | XMS REPORT | Summary of Care ---
:1990 Author Organization [facility] Address [address] [place] [address] Care Team Providers Name Role Phone Pcp, Does Not Have A Primary Care Provider Reason for Visit Reason Comments Rx Concern/Question Naproxen Request Encounter Details Date Type Department Care Team Description 04/18/2020 Telephone [facility] Ashvin Muñoz, Rx Con cern/Question Neurology-Alena KELLEY (Naproxen Request) [address] [place] 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 of high-risk of young primigravida 11/200902/18/2016 Obesity 11/18/2009 02/18/2016 Second-degree perineal laceration, with delivery 11/17/2009 02/18/2016 Streptococcus B carrier or suspected carrier 11/17/2009 02/18/2016 Teen 11/17/2009 02/18/2016 Chlamydia 11/17/2009 02/18/2016 documented as of this encounter (statuses as of 04/29/2020) Immunizations Name Administration Dates Next Due HPV9 [...] exists Depression Screening 05/14/2020 05/14/2019 INFLUENZA VACCINE (#1) 2020 DTaP,Tdap,and Td Vaccines (2 - Td) 07/13/2026 07/13/2016 documented as of this encounter Results Not on filedocumented in this encounter Insurance Payer Benefit Plan / Subscriber ID Effective Dates Phone Addre ss Type Group [facility] xxxxxxxxx 2018-Present Medicaid COMM PLAN - MANAGED MEDICAID [facility] [place] [facility] Effective for Medicaid COMM PLAN - all dates MANAGED MEDICAID documented as of this encounter Advance Directives Name Relationship Healthcare Agent Relationship Co mmunication Mel Dewitt Mother Primary healthcare agent
[2020-05-17] MEDS ORDERED: DIPHENHYDRAMINE 50 MG/ML VIAL ONE (20:18)
[2020-05-17] MEDS ORDERED: ONDANSETRON 4 MG/2 ML VIAL ONE (20:19)
[2020-05-17] MEDS ORDERED: KETOROLAC 30 MG/ML INJ ONE (20:19)
--- NOTE | 2020-05-17 20:56 | ER ---
Nurse's Notes [facility] Name: Judy Ivory Age: 29 yrs Sex: Female : 1990 Arrival Date: 05/17/2020 Time: 19:12 Bed 26 Private MD: Diagnosis: Migraine without aura, not intractable Presentation: 05/17 19:30 Chief complaint: Patient states: she has migraines and today the pain got worse her bb home medications are not working. Coronavirus screen: At this time, the client does not indicate any symptoms associated with coronavirus-19. Ebola Screen: No symptoms or risks identified at this time. Initial Sepsis Screen: Does the patient meet any 2 criteria? No. Patient's initial sepsis screen is negative. Does the patient have a suspected source of infection? No. Patient's initial sepsis screen is negative. Risk Assessment: Do you want to hurt yourself or someone else? Patient reports no desire to harm self or others. Onset of symptoms was May 17, 2020. 19:30 Method Of Arrival: Ambulatory bb 19:30 Acuity: NICOLETTE 4 bb Triage Assessment: 20:09 General: Appears in no apparent distress. Behavior is calm, cooperative. 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 - Social history:: Smoking status: Patient reports the use of cigarette tobacco products, smokes one-half pack cigarettes per day. Screenin:30 Abuse screen: Denies threats or abuse. Nutritional screening: No deficits noted. jb4 Tuberculosis screening: No symptoms or risk factors identified. Fall Risk None identified. Assessment: 19:35 General: Appears in no apparent distress. uncomfortable, Behavior is calm, cooperative, jb4 appropriate for age. Pain: Complains of pain in Migraine Headache Pain does not radiate. Pain currently is 7 out of 10 on a pain scale. Neuro: Level of Consciousness is awake, alert, obeys commands, Oriented to person, place, time, situation. Cardiovascular: Patient's skin is warm and dry. Respiratory: Airway is patent Respiratory effort is even, unlabored, Respiratory pattern is regular, symmetrical. GI: No signs and/or symptoms were reported involving the gastrointestinal system. : No signs and/or symptoms were reported regarding the genitourinary system. EENT: No signs and/or symptoms were reported regarding the EENT system. Derm: Skin is intact, Skin is pink, warm \T\ dry. Musculoskeletal: Circulation, motion, and sensation intact. Range of motion: intact in all extremities. 20:45 Reassessment: Patient and/or family updated on plan of care and expected duration. Pain jb4 level reassessed. Pt is resting comfortably in bed. Reports pain is now 0/10 after medication administration. Denies photophobia at this time. reports over all feeling better. Respirations are even and unlabored. 21:09 Reassessment: Patient and/or family updated on plan of care and expected duration. Pain jb4 level reassessed. PT denies pain, verbalized understanding of D/c and follow up instructions. Denies questions or concerns. Ambulated out of ED with steady gait. Patient states feeling better. Patient states symptoms have improved. Vital Signs: 19:30 BP 120 / 69; Pulse 88; Resp 14 S; Temp 98.5(O); Pulse Ox 98% on R/A; Weight 77.11 kg bb (R); Height 5 ft. 1 in. (154.94 cm) (R); Pain 7/10; 20:45 BP 117 / 68; Pulse 86; Resp 16; Pulse Ox 98% on R/A; jb4 19:30 Body Mass Index 32.12 (77.11 kg, 154.94 cm) bb [place] Coma Score: 20:09 Eye Response: spontaneous(4). Verbal Response: oriented(5). Motor Response: obeys bb commands(6). Total: 15. 02 01:08 Eye Response: spontaneous(4). Verbal Response: oriented(5). Motor Response: obeys tw4 commands(6). Total: 15. ED Course: 05/17 19:12 Patient arrived in ED. cl3 19:20 Braden Law MD is Attending Physician. tw4 19:30 Patient has correct armband on for positive identification. Bed in low position. Call jb4 light in reach. Side rails up X 1. Pulse ox on. NIBP on. 20:00 Juan Ramon Gamez, RN is Primary Nurse. jb4 20:07 Triage completed. 20:09 Arm band placed on Patient placed in an exam room, on a stretcher, on pulse oximetry. 20:12 Inserted saline lock: 20 gauge in right antecubital area, using aseptic technique. Blood collected. 21:10 No provider procedures requiring assistance completed. IV discontinued, intact, jb4 bleeding controlled, No redness/swelling at site. Pressure dressing applied. Administered Medications: 20:14 Drug: TORadol 30 mg Route: IVP; Site: right antecubital; 20:51 Follow up: Response: No adverse reaction; Pain is decreased jb4 20:16 Drug: Benadryl 25 mg Route: IVP; Site: right antecubital; 20:51 Follow up: Response: No adverse reaction; Pain is decreased jb4 20:18 Drug: Zofran (Ondansetron) 4 mg Route: IVP; Site: right antecubital; 20:51 Follow up: Response: No adverse reaction jb4 Outcome: 20:56 Discharge ordered by . tw4 21:10 Discharged to home ambulatory, with family. jb4 21:10 Condition: stable 21:10 Discharge instructions given to patient, Instructed on discharge instructions, follow up and referral plans. medication usage, Demonstrated understanding of instructions, follow-up care, medications, Prescriptions given X 2. 21:10 Patient left the ED. jb4 Signatures: Shanika Fry RN RN Juan Ramon Gamez, PEEWEE RN jb4 Chel Gonzales Braden Law MD MD tw4 Matthew Lee cl3 Corrections: (The following items were deleted from the chart) 20:52 20:45 BP 117 / 59; Pulse 86bpm; Resp 16bpm; Pulse Ox 98% RA; jb4 jb4
--- NOTE | 2020-05-17 20:57 | EDPHYS ---
Physician Documentation [facility] Name: Judy Ivory Age: 29 yrs Sex: Female : 1990 Arrival Date: 05/17/2020 Time: 19:12 Bed 26 Private MD: ED Physician Braden Law HPI: 05/18 01:07 This 29 yrs old Female presents to ER via Ambulatory with complaints of tw4 Miigraines, Seizure. 01:08 The patient complains of pain to the forehead. The patient describes the headache as tw4 aching. Onset: The symptoms/episode began/occurred today. Associated signs and symptoms: The patient has no apparent associated signs or symptoms. Severity of symptoms: At its worst the pain was moderate, in the emergency department the pain is unchanged. The patient has not experienced similar symptoms in the past. 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 - Social history:: Smoking status: Patient reports the use of cigarette tobacco products, smokes one-half pack cigarettes per day. ROS: 05/18 01:08 Constitutional: Negative for fever, chills, and weight loss, Eyes: Negative for injury, tw4 pain, redness, and discharge, Cardiovascular: Negative for chest pain, palpitations, and edema, Respiratory: Negative for shortness of breath, cough, wheezing, and pleuritic chest pain, Abdomen/GI: Negative for abdominal pain, nausea, vomiting, diarrhea, and constipation, Back: Negative for injury and pain, MS/Extremity: Negative for injury and deformity, Skin: Negative for injury, rash, and discoloration. Neuro: Positive for headache. Exam: 01:08 Constitutional: This is a well developed, well nourished patient who is awake, alert, tw4 and in no acute distress. Head/Face: Normocephalic, atraumatic. Chest/axilla: Normal chest wall appearance and motion. Nontender with no deformity. No lesions are appreciated. Cardiovascular: Regular rate and rhythm with a normal S1 and S2. No gallops, murmurs, or rubs. Normal PMI, no JVD. No pulse deficits. Respiratory: Lungs have equal breath sounds bilaterally, clear to auscultation and percussion. No rales, rhonchi or wheezes noted. No increased work of breathing, no retractions or nasal flaring. Abdomen/GI: Soft, non-tender, with normal bowel sounds. No distension or tympany. No guarding or rebound. No evidence of tenderness throughout. Back: No spinal tenderness. No costovertebral tenderness. Full range of motion. MS/ Extremity: Pulses equal, no cyanosis. Neurovascular intact. Full, normal range of motion. Neuro: Awake and alert, GCS 15, oriented to person, place, time, and situation. Cranial nerves II-XII grossly intact. Motor strength 5/5 in all extremities. Sensory grossly intact. Cerebellar exam normal. Normal gait. Vital Signs: 05/17 19:30 BP 120 / 69; Pulse 88; Resp 14 S; Temp 98.5(O); Pulse Ox 98% on R/A; Weight 77.11 kg bb (R); Height 5 ft. 1 in. (154.94 cm) (R); Pain 7/10; 20:45 BP 117 / 68; Pulse 86; Resp 16; Pulse Ox 98% on R/A; jb4 19:30 Body Mass Index 32.12 (77.11 kg, 154.94 cm) Orland Coma Score: 20:09 Eye Response: spontaneous(4). Verbal Response: oriented(5). Motor Response: obeys bb commands(6). Total: 15. 05/18 01:08 Eye Response: spontaneous(4). Verbal Response: oriented(5). Motor Response: obeys [facility] commands(6). Total: 15. MDM: 05/17 19:34 Patient medically screened. tw4 05/18 01:08 Data reviewed: vital signs, nurses notes. Counseling: I had a detailed discussion with [facility] the patient and/or guardian regarding: the historical points, exam findings, and any diagnostic results supporting the discharge/admit diagnosis. Medication response: Toradol relieved patient's pain. The symptoms have resolved, Zofran relieved the patient's nausea. Special discussion: I discussed with the patient/guardian in detail that at this point there is no indication for admission to the hospital. It is understood, however, that if the symptoms persist or worsen the patient needs to return immediately for re-evaluation. Administered Medications: 05/17 20:14 Drug: TORadol 30 mg Route: IVP; Site: right antecubital; 20:51 Follow up: Response: No adverse reaction; Pain is decreased jb4 20:16 Drug: Benadryl 25 mg Route: IVP; Site: right antecubital; 20:51 Follow up: Response: No adverse reaction; Pain is decreased jb4 20:18 Drug: Zofran (Ondansetron) 4 mg Route: IVP; Site: right antecubital; 20:51 Follow up: Response: No adverse reaction jb4 Disposition: 05/17/20 20:56 Discharged to Home. Impression: Migraine without aura, not intractable. - Condition is Stable. - Discharge Instructions: Migraine Headache. - Prescriptions for ketorolac 10 mg Oral tablet - take 1 tablet by ORAL route every 4-6 hours not to exceed 40 mg in 24hrs; 10 tablet. Zofran 4 mg Oral Tablet - take 1 tablet by ORAL route every 12 hours As needed; 6 tablet. - Work release form, Medication Reconciliation Form, Thank You Letter, Antibiotic Education, Prescription Opioid Use form. - Follow up: Private Physician; When: Upon discharge from the Emergency Department; Reason: Recheck today's complaints, Continuance of care, Re-evaluation by your physician. - Problem is new. - Symptoms have improved. Signatures: Shanika Fry RN RN Juan Raomn Sorensen RN RN jb4 Chel Gonzales Terrence, MD MD tw4 Corrections: (The following items were deleted from the chart) 21:10 20:56 05/17/2020 20:56 Discharged to Home. Impression: Migraine without aura, not jb4 intractable. Condition is Stable. Forms are Work release form, Medication Reconciliation Form, Thank You Letter, Antibiotic Education, Prescription Opioid Use. Follow up: Private Physician; When: Upon discharge from the Emergency Department; Reason: Recheck today's complaints, Continuance of care, Re-evaluation by your physician. Problem is new. Symptoms have improved. tw4
[2020-05-17 21:16] VITALS: TEMP 98.5; O2SAT 98
[2020-05-17 21:17] VITALS: BP 117/68
== END 2020-05-17 21:10 | disposition home or self-care (01) ==
LOC: ER 19:11
DX: G43.009 Migraine without aura, not intractable, without status migrainosus (principal); F32.9 Major depressive disorder, single episode, unspecified; F17.210 Nicotine dependence, cigarettes, uncomplicated; Z88.5 Allergy status to narcotic agent
CPT/HCPCS: 96375; 96374; 99284; J1200; J2405

== ENCOUNTER 2020-05-18 07:07 | Emergency (ER) | payer OTHER ==
--- OUTSIDE RECORDS SUMMARY | 2020-05-18 07:10 | XMS REPORT | Continuity of Care Document ---
:1990 Author Organization [facility] t Address [address] [place] [address] Care Team Providers Name Role Phone Edin [...] Known DA Active U [facility] 03-20 [facility] s 00:00: d 00 [facility] Medications This patient has no known medications. Procedures This patient has no known procedures. Encounters Start End Encounter Admission Attending Care Care Encounter Source Date/Time Date/Time Type Type Clinicians Facility Department ID 2020-04-18 2020-04-18 Telephone Toni [facility] [id number] 00:00:00 00:00:00 Ashvin Carvajal [id number] Dane [id number] Teri [phone] [address] 2020-04-14 2020-04-14 Telephone Toni [facility] [id number] 00:00:00 00:00:00 Ashvin Carvajal [id number] Arthur [id number] Professio [phone] [facility] 2020-04-14 2020-04-14 Orders Doctor GUS [id number] 00:00:00 00:00:00 Only Unassigned, JULIOCESAR [id number] [facility] [phone] [id number] 2020-04-11 2020-04-11 Telephone [facility] [id number] 00:00:00 00:00:00 Ashvin Carvajal [id number] Arthur [id number] Professio [phone] [address] 2020-04-09 2020-04-09 [facility], [facility] [id number] 09:39:01 09:54:01 Visit [facility] [id number] [place] [id number] [facility] [phone] Primary & [facility] 2020-04-01 2020-04-01 Telephone [facility] [id number] 00:00:00 00:00:00 Ashvin Carvajal [id number] Arthur [id number] Professio [phone] [address] 2020-03-28 2020-03-28 Office [facility] [id number] 15:02:40 15:54:52 Visit Ashvin Carvajal [id number] Arthur [id number] Professio [phone] [address] Results Test Description Test Time Test [...] code = AMORU) FEW NONE UR HCG [id number] 12:25:00 Test Item Value Reference Range Interpretation Comments UR HCG QUAL (test code = HCGQLU) NEGATIVE NEGATIVE URINALYSIS [id number] 12:12:00 Test Item Value Reference Range Interpretation [...] (test code = NONE BACU) UR HCG [id number] 12:12:00 Test Item Value Reference Range Interpretation Comments UR HCG QUAL (test code = HCGQLU) NEGATIVE NEGATIVE URINALYSIS [id number] 12:11:00 Test Item Value Reference Range Interpretation [...] (test code = BACU) NONE UR HCG [id number] 12:11:00 Test Item Value Reference Range Interpretation Comments UR HCG QUAL (test code = HCGQLU) NEGATIVE NEGATIVE BASIC METABOLIC [id number] 11:18:00 Test Item Value Reference Range Interpretation [...] CA) 8.9 mg/dl 8.0-10.5 N CBC W/AUTO [id number] 11:04:00 Test Item Value Reference Range Interpretation [...] = BA#) 0.1 K/mm3 0.0-0.2 N Culture, [id number] 10:59:00 Test Item Value Reference Range Interpretation Comments Culture, Urine (test Urine specimen contains 3 code = URC) or more different organisms, Culture, Urine (test clinically indicated. code = URC1) Culture, Urine (test NF N code = URC1) Culture, Urine (test 75 MSF N code = URC1) Chemistry - [id number] 11:43:00 Test Item Value Reference Range Interpretation [...] - 3 months 10,000 - 100,00 0 [id number] 21:09:00 Test Item Value Reference Range Interpretation [...] A UABAC) Urine Source: Urine Clean CatchType [id number] 21:02:00 Test Item Value Reference Range Interpretation Comments Blood Type Rh (test code = BT) BP [id number] 21:01:00 Test Item Value Reference Range Interpretation [...] 8-55 N code = ALT) Chemistry - [id number] 21:01:00 Test Item Value Reference Range Interpretation Comments Chemistry - Specials POSITIVE NEGATIVE A Method of sensitivity- (test code = BHCGST) Indete rminant: results should be repeated after 48-72 hrs Positive: results may be detected as ear ly as 1 day after the first missed menses. [id number] 20:48:00 Test Item Value Reference Range Interpretation [...]
[2020-05-18] MEDS ORDERED: METOCLOPRAMIDE 10 MG/2mL INJ ONE (08:15)
[2020-05-18] MEDS ORDERED: DIPHENHYDRAMINE 50 MG/ML VIAL ONE (08:15)
[2020-05-18] MEDS ORDERED: NA CHLORIDE 0.9% 1,000 ML ONE (08:16)
[2020-05-18] MEDS ORDERED: KETOROLAC 30 MG/ML INJ ONE (08:16)
--- NOTE | 2020-05-18 08:52 | ER ---
Nurse's Notes [facility] Name: Judy Ivory Age: 29 yrs Sex: Female : 1990 Arrival Date: 05/18/2020 Time: 07:09 Bed 5 Private MD: Diagnosis: Migraine Presentation: 05/18 07:36 Chief complaint: Patient states: "I was here last night because I have migraines that ss make me have seizures. They gave me Toradol, Zofran and Benadryl. It went away, but now it's coming back and I haven't been able to fill my prescriptions because the pharmacy is closed.". Coronavirus screen: Client denies travel out of the [place] in the last 14 days. At this time, the client does not indicate any symptoms associated with coronavirus-19. Ebola Screen: Patient denies exposure to infectious person. Patient denies travel to an Ebola-affected area in the 21 days before illness onset. Initial Sepsis Screen: Does the patient meet any 2 criteria? No. Patient's initial sepsis screen is negative. Does the patient have a suspected source of infection? No. Patient's initial sepsis screen is negative. Risk Assessment: Do you want to hurt yourself or someone else? Patient reports no desire to harm self or others. Onset of symptoms was May 17, 2020. 07:36 Method Of Arrival: Ambulatory 07:36 Acuity: NICOLETTE 3 ss Historical: - Allergies: 07:39 Hydrocodone-Acetaminophen; ss - PMHx: 07:39 Depression; ectopic ; Migraines; ss - PSHx: 07:39 ectopic ; ss - Immunization history:: Adult Immunizations up to date. - Social history:: Patient/guardian denies using alcohol, street drugs. - Family history:: not pertinent. Screenin:00 Abuse screen: Denies threats or abuse. Denies injuries from another. Nutritional jr10 screening: No deficits noted. Tuberculosis screening: No symptoms or risk factors identified. Fall Risk No fall in past 12 months (0 pts). No secondary diagnosis (0 pts). IV access (20 points). Ambulatory Aid- None/Bed Rest/Nurse Assist (0 pts). Gait- Normal/Bed Rest/Wheelchair (0 pts) Mental Status- Oriented to own ability (0 pts). Assessment: 08:00 General: Appears in no apparent distress. Behavior is calm, cooperative, appropriate jr10 for age. Pain: Complains of pain in left anabaptism Pain does not radiate. Pain currently is 6 out of 10 on a pain scale. Quality of pain is described as aching. Neuro: Level of Consciousness is awake, alert, obeys commands, Oriented to person, place, time, situation, Appropriate for age [employer] are equal bilaterally Moves all extremities. Gait is steady, Speech is normal, Denies blurred vision dizziness, Pt reports that she has past hx of head injury and when she gets migraines it usually results in seizures. Pt reports that she was here yesterday for the same problem. Reports that the pain medication helped but her headache returned early this morning. 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 Pt ambulatory with stable and steady gait noted. NAND. Cardiovascular: No deficits noted. Respiratory: No deficits noted. GI: No deficits noted. : No deficits noted. EENT: No deficits noted. Derm: No deficits noted. Musculoskeletal: No deficits noted. Vital Signs: 07:36 BP 120 / 84; Pulse 87; Resp 16; Temp 97.6(TE); Pulse Ox 98% on R/A; Weight 77.11 kg; ss Height 5 ft. 7 in. (170.18 cm); Pain 10/10; 08:44 BP 118 / 90; Pulse 76; Resp 20; Pulse Ox 99% on R/A; jr10 10:30 BP 118 / 70; Pulse 76; Resp 18; Pulse Ox 95% on R/A; Pain 0/10; jr10 07:36 Body Mass Index 26.63 (77.11 kg, 170.18 cm) Jesusita Coma Score: 08:00 Eye Response: spontaneous(4). Verbal Response: oriented(5). Motor Response: obeys jr10 commands(6). Total: 15. ED Course: 07:09 Patient arrived in ED. ds1 07:19 Leanna Gallegos, PEEWEE is Primary Nurse. jr10 07:29 Braden Law MD is Attending Physician. tw4 07:39 Triage completed. ss 07:39 Arm band placed on right wrist. ss 08:00 Pulse ox on. NIBP on. jr10 08:00 Seizure precautions initiated. jr10 08:00 Inserted saline lock: 20 gauge in left antecubital area, using aseptic technique. IV is jr10 patent, is intact, with good blood return, Flushed. 08:50 Lima Chinchilla MD is Attending Physician. ma2 09:23 CT Head Brain wo Cont In Process Unspecified. EDMS 09:29 No provider procedures requiring assistance completed. jr10 10:49 IV discontinued, bleeding controlled, No redness/swelling at site. Pressure dressing jr10 applied. 10:50 Patient has correct armband on for positive identification. Bed in low position. Call jr10 light in reach. Side rails up X2. Administered Medications: 08:15 Drug: Benadryl 50 mg Route: IVP; Site: left antecubital; jr10 09:21 Follow up: Response: No adverse reaction jr10 08:18 Drug: TORadol 30 mg Route: IVP; Site: left antecubital; jr10 09:20 Follow up: Response: No adverse reaction jr10 08:20 Drug: NS 0.9% 1000 ml Route: IV; Rate: 1 bolus; Site: left antecubital; jr10 08:20 Drug: Reglan 20 mg Route: IVP; Site: left antecubital; jr10 09:21 Follow up: Response: No adverse reaction jr10 09:15 Drug: Zofran (Ondansetron) 4 mg Route: IVP; Site: left antecubital; jr10 10:00 Follow up: Response: No adverse reaction; Nausea is decreased jr10 Outcome: 08:52 Discharge ordered by . ma2 10:28 Discharge ordered by MD. ma2 10:49 Discharged to home ambulatory. jr10 10:49 Condition: improved 10:49 Discharge instructions given to patient, Instructed on discharge instructions, follow up and referral plans. Demonstrated understanding of instructions, follow-up care, medications, Prescriptions given X 1. 10:51 Patient left the ED. jr10 Signatures: Dispatcher [employer] EDMN Gina Jane1 Cristela Herrera, PEEWEE VIDES Lima Chinchilla MD MD ma2 Braden Law MD MD tw4 Leanna Gallegos, PEEWEE RN jr10
--- NOTE | 2020-05-18 08:53 | EDPHYS ---
Physician Documentation [facility] Name: Judy Ivory Age: 29 yrs Sex: Female : 1990 Arrival Date: 05/18/2020 Time: 07:09 Bed 5 Private MD: ED Physician Lima Chinchilla HPI: 05/18 08:50 This 29 yrs old Female presents to ER via Ambulatory with complaints of ma2 Probable Seizure - Migraine. 08:50 Seizure onset: yesterday . Associated injury: The patient did not suffer any apparent ma2 associated injury. 08:50 hs headache, she has migraines and this is gradual headache similar to old headaches . ma2 Historical: - Allergies: 07:39 Hydrocodone-Acetaminophen; ss - PMHx: 07:39 Depression; ectopic ; Migraines; ss - PSHx: 07:39 ectopic ; ss - Immunization history:: Adult Immunizations up to date. - Social history:: Patient/guardian denies using alcohol, street drugs. - Family history:: not pertinent. ROS: 08:50 Constitutional: Negative for fever, chills, and weight loss. ma2 08:50 All other systems are negative. Exam: 08:50 Constitutional: This is a well developed, well nourished patient who is awake, alert, ma2 and in no acute distress. Neck: Trachea midline, no thyromegaly or masses palpated, and no cervical lymphadenopathy. Supple, full range of motion without nuchal rigidity, or vertebral point tenderness. No Meningismus. Chest/axilla: Normal chest wall appearance and motion. Nontender with no deformity. No lesions are appreciated. Cardiovascular: Regular rate and rhythm with a normal S1 and S2. No gallops, murmurs, or rubs. Normal PMI, no JVD. No pulse deficits. Respiratory: Lungs have equal breath sounds bilaterally, clear to auscultation and percussion. No rales, rhonchi or wheezes noted. No increased work of breathing, no retractions or nasal flaring. Abdomen/GI: Soft, non-tender, with normal bowel sounds. No distension or tympany. No guarding or rebound. No evidence of tenderness throughout. Skin: Warm, dry with normal turgor. Normal color with no rashes, no lesions, and no evidence of cellulitis. MS/ Extremity: Pulses equal, no cyanosis. Neurovascular intact. Full, normal range of motion. Neuro: Awake and alert, GCS 15, oriented to person, place, time, and situation. Cranial nerves II-XII grossly intact. Motor strength 5/5 in all extremities. Sensory grossly intact. Cerebellar exam normal. Normal gait. Vital Signs: 07:36 BP 120 / 84; Pulse 87; Resp 16; Temp 97.6(TE); Pulse Ox 98% on R/A; Weight 77.11 kg; ss Height 5 ft. 7 in. (170.18 cm); Pain 10/10; 08:44 BP 118 / 90; Pulse 76; Resp 20; Pulse Ox 99% on R/A; jr10 10:30 BP 118 / 70; Pulse 76; Resp 18; Pulse Ox 95% on R/A; Pain 0/10; jr10 07:36 Body Mass Index 26.63 (77.11 kg, 170.18 cm) ss Jesusita Coma Score: 08:00 Eye Response: spontaneous(4). Verbal Response: oriented(5). Motor Response: obeys jr10 commands(6). Total: 15. MDM: 08:50 Differential diagnosis: seizure, migraine tension headach e. Data reviewed: vital ma2 signs, nurses notes. Counseling: I had a detailed discussion with the patient and/or guardian regarding: the historical points, exam findings, and any diagnostic results supporting the discharge/admit diagnosis, the presence of at least one elevated blood pressure reading (>120/80) during this emergency department visit, the need for outpatient follow up. Response to treatment: the patient's symptoms have resolved after treatment. 08:52 Patient medically screened. al2 05/18 09:43 Order name: Urine Dipstick--Ancillary (enter results) 05/18 09:43 Order name: Urine --Ancillary (enter results) eb 05/18 09:00 Order name: CT Head Brain wo Cont ma2 05/18 07:35 Order name: Urine Dipstick-Ancillary (obtain specimen); Complete Time: 09:43 ma2 Administered Medications: 08:15 Drug: Benadryl 50 mg Route: IVP; Site: left antecubital; jr10 09:21 Follow up: Response: No adverse reaction jr10 08:18 Drug: TORadol 30 mg Route: IVP; Site: left antecubital; jr10 09:20 Follow up: Response: No adverse reaction jr10 08:20 Drug: NS 0.9% 1000 ml Route: IV; Rate: 1 bolus; Site: left antecubital; jr10 08:20 Drug: Reglan 20 mg Route: IVP; Site: left antecubital; jr10 09:21 Follow up: Response: No adverse reaction jr10 09:15 Drug: Zofran (Ondansetron) 4 mg Route: IVP; Site: left antecubital; jr10 10:00 Follow up: Response: No adverse reaction; Nausea is decreased jr10 Disposition: 05/18/20 10:28 Discharged to Home. Impression: Migraine. - Condition is Stable. - Discharge Instructions: Migraine Headache. - Prescriptions for Reglan 10 mg Oral Tablet - take 1 tablet by ORAL route every 6 hours take 30 minutes before meals and at bedtime; 20 tablet. - Medication Reconciliation Form, Thank You Letter, Antibiotic Education, Prescription Opioid Use form. - Follow up: Private Physician; When: Tomorrow; Reason: Continuance of care. Signatures: Dispatcher [employer] EDNJ Cristela Herrera RN RN ss Lima Chinchilla MD MD ma2 Leanna Gallegos RN RN jr10 Corrections: (The following items were deleted from the chart) 08:57 08:52 05/18/2020 08:52 Discharged to Home. Impression: Migraine. Condition is Stable. ma2 Forms are Medication Reconciliation Form, Thank You Letter, Antibiotic Education, Prescription Opioid Use. Follow up: Private Physician; When: Tomorrow; Reason: Continuance of care. ma2 10:51 10:28 05/18/2020 10:28 Discharged to Home. Impression: Migraine. Condition is Stable. jr10 Prescriptions for Reglan 10 mg Oral Tablet - take 1 tablet by ORAL route every 6 hours take 30 minutes before meals and at bedtime; 20 tablet. and Forms are Medication Reconciliation Form, Thank You Letter, Antibiotic Education, Prescription Opioid Use. Follow up: Private Physician; When: Tomorrow; Reason: Continuance of care. ma2
[2020-05-18] MEDS ORDERED: ONDANSETRON 4 MG/2 ML VIAL ONE (09:18)
--- NOTE | 2020-05-18 09:30 | RAD REPORT ---
EXAM DESCRIPTION: CT - Head Brain Wo Cont - 05/18/2020 9:23 am CLINICAL HISTORY: Headache COMPARISON: 2018 TECHNIQUE: Computed axial tomography of the head was obtained. IV contrast was not requested. All CT scans are performed using dose optimization technique as appropriate and may include automated exposure control or mA/KV adjustment according to patient size. FINDINGS: An intracranial bleed is not seen . The ventricles are normal in caliber. No extra-axial fluid collection is noted. Fluid within the sinuses/ mastoids is not seen. IMPRESSION: No acute intracranial abnormality is seen. If patient's symptoms persist MRI of the bra in would be recommended.
[2020-05-18 10:33] LABS: Urine Blood NEGATIVE (NEG); Urine Glucose NEGATIVE (NEG); Urine Protein NEGATIVE (NEG); Urine pH 5.5 (5.0-7.0)
[2020-05-18 10:58] VITALS: TEMP 97.6
[2020-05-18 11:00] VITALS: BP 118/70; O2SAT 95
== END 2020-05-18 10:51 | disposition home or self-care (01) ==
LOC: ER 07:07
DX: G43.909 Migraine, unspecified, not intractable, without status migrainosus (principal); Z88.5 Allergy status to narcotic agent
CPT/HCPCS: 81025; 81003; 70450; J2765; J1200; J7030; J2405; 96374; 96375; 99284

== ENCOUNTER 2020-05-26 16:50 | Emergency (ER) | payer OTHER ==
[2020-05-26] MEDS ORDERED: KETOROLAC 30 MG/ML INJ ONE (17:20)
--- OUTSIDE RECORDS SUMMARY | 2020-05-26 17:37 | XMS REPORT | Continuity of Care Document ---
:1990 Author Organization [facility] t Address [address] [place] [address] Care Team Providers Name Role Phone Edin [...] Date Clinician No Known DA Active U ED Allergie 03-20 [facility] s 00:00: d 00 [facility] Medications This patient has no known medications. Procedures This patient has no known procedures. Encounters Start End Encounter Admission Attending Care Care Encounter Source Date/Time Date/Time Type Type Clinicians Facility Department ID 2020-04-18 2020-04-18 [place] [facility] [id number] 00:00:00 00:00:00 Ashvin Carvajal [id number] [place] [id number] essdebra [phone] [facility] 2020-04-14 2020-04-14 [place] Toni [facility] 1.2.840.114 [id number] 00:00:00 00:00:00 Ashvin Carvajal [id number] [place] [id number] Professio [phone] [address] 2020-04-14 2020-04-14 Orders Doctor GUS 1.2.840.114 [id number] 00:00:00 00:00:00 Only Unassigned, JULIOCESAR [id number] [place] [facility] 4.2.7.2.686 [phone] [id number] 2020-04-11 2020-04-11 Telephone Toni [facility] 1.2.840.114 [id number] 00:00:00 00:00:00 Ashvin Carvajal [id number] [place] [id number] Professio [phone] [address] 2020-04-09 2020-04-09 Assessment Manager Lab, [facility] [id number] 09:39:01 09:54:01 Visit [facility] [id number] [place] [id number] [facility] [phone] Primary & [facility] Care 2020-04-01 2020-04-01 [facility] [id number] 00:00:00 00:00:00 Ashvin Carvajal [id number] [place] [id number] Professio [phone] [address] 2020-03-28 2020-03-28 Office Toni [facility] 1.2.840.114 [id number] 15:02:40 15:54:52 Visit Ashvin Carvajal [id number] [place] [id number] Professio [phone] [address] Results Test Description Test Time Test [...] code = AMORU) FEW NONE UR HCG [id number] 12:25:00 Test Item Value Reference Range Interpretation Comments UR HCG QUAL (test code = HCGQLU) NEGATIVE NEGATIVE URINALYSIS [id number] 12:12:00 Test Item Value Reference Range Interpretation [...] (test code = NONE BACU) UR HCG [id number] 12:12:00 Test Item Value Reference Range Interpretation Comments UR HCG QUAL (test code = HCGQLU) NEGATIVE NEGATIVE URINALYSIS [id number] 12:11:00 Test Item Value Reference Range Interpretation [...] (test code = BACU) NONE UR HCG [id number] 12:11:00 Test Item Value Reference Range Interpretation Comments UR HCG QUAL (test code = HCGQLU) NEGATIVE NEGATIVE BASIC METABOLIC [id number] 11:18:00 Test Item Value Reference Range Interpretation [...] CA) 8.9 mg/dl 8.0-10.5 N CBC W/AUTO [id number] 11:04:00 Test Item Value Reference Range Interpretation [...] = BA#) 0.1 K/mm3 0.0-0.2 N Culture, [id number] 10:59:00 Test Item Value Reference Range Interpretation Comments Culture, Urine (test Urine specimen contains 3 code = URC) or more different organisms, Culture, Urine (test clinically indicated. code = URC1) Culture, Urine (test NF N code = URC1) Culture, Urine (test 75 MSF N code = URC1) Chemistry - [id number] 11:43:00 Test Item Value Reference Range Interpretation [...] - 3 months 10,000 - 100,00 0 [id number] 21:09:00 Test Item Value Reference Range Interpretation [...] A UABAC) Urine Source: Urine Clean CatchType [id number] 21:02:00 Test Item Value Reference Range Interpretation Comments Blood Type Rh (test code = BT) BP [id number] 21:01:00 Test Item Value Reference Range Interpretation [...] 8-55 N code = ALT) Chemistry - [id number] 21:01:00 Test Item Value Reference Range Interpretation Comments Chemistry - Specials POSITIVE NEGATIVE A Method of sensitivity- (test code = BHCGST) Indete rminant: results should be repeated after 48-72 hrs Positive: results may be detected as ear ly as 1 day after the first missed menses. [id number] 20:48:00 Test Item Value Reference Range Interpretation [...]
--- NOTE | 2020-05-27 07:28 | ER ---
Nurse's Notes [facility] Name: Judy Ivory Age: 29 yrs Sex: Female : 1990 Arrival Date: 05/26/2020 Time: 16:53 Bed 19 Private MD: Diagnosis: Migraine;Seizures Presentation: 05/26 16:59 Chief complaint: Patient states: States she is out of her depakote for 3 days. States ll1 she has migraines that cause her seizure activity. 1 seizure today at 1500 per patient. Coronavirus screen: Client denies travel out of the [place] in the last 14 days. At this time, the client does not indicate any symptoms associated with coronavirus-19. Ebola Screen: Patient denies travel to an Ebola-affected area in the 21 days before illness onset. Initial Sepsis Screen: Does the patient meet any 2 criteria? No. Patient's initial sepsis screen is negative. Risk Assessment: Do you want to hurt yourself or someone else? Patient reports no desire to harm self or others. Onset of symptoms was May 26, 2020. 16:59 Method Of Arrival: Ambulatory 1 16:59 Acuity: NICOLETTE 3 ll1 17:34 Initial Sepsis Screen: Does the patient have a suspected source of infection? No. ks7 Patient's initial sepsis screen is negative. Triage Assessment: 17:32 General: Appears in no apparent distress. ks7 COURT INTERPRETER: 17:32 LMP 04/30/2020 ks7 Historical: - Allergies: 16:59 Hydrocodone-Acetaminophen; ll1 - Home Meds: 17:34 Amitriptyline Oral [Active]; Depakote Oral [Active]; ks7 - PMHx: 16:59 Depression; ectopic ; Migraines; ll1 - PSHx: 16:59 ectopic ; ll1 - Immunization history:: Flu vaccine is not up to date. - Social history:: Smoking status: Patient reports the use of cigarette tobacco products, smokes one-half pack cigarettes per day, Patient/guardian denies using alcohol, street drugs. Screenin:15 Abuse screen: Denies threats or abuse. Denies injuries from another. Nutritional ks7 screening: No deficits noted. Tuberculosis screening: No symptoms or risk factors identified. Fall Risk None identified. Assessment: 17:15 General: Appears in no apparent distress. uncomfortable, Behavior is calm, cooperative. ks7 Pain: Complains of pain in headache Pain currently is 7 out of 10 on a pain scale. Quality of pain is described as aching, Pain began gradually, Is continuous, Alleviated by medications. Neuro: No deficits noted. Vital Signs: 16:59 BP 120 / 72; Pulse 90; Resp 18; Temp 98.4; Pulse Ox 99% ; Weight 72.57 kg; Height 5 ft. ll1 1 in. (154.94 cm); Pain 8/10; 17:14 BP 122 / 77; Pulse 68; Resp 18; Temp 98.4(O); Pulse Ox 100% on R/A; Pain 7/10; ks7 17:31 BP 113 / 75; Pulse 65; Resp 18; Temp 98.4(O); Pulse Ox 100% on R/A; Pain 0/10; ks7 17:34 Pulse Ox 100% on R/A; Pain 0/10; ks7 16:59 Body Mass Index 30.23 (72.57 kg, 154.94 cm) ll1 Jesusita Coma Score: 17:32 Eye Response: spontaneous(4). Verbal Response: oriented(5). Motor Response: obeys ks7 commands(6). Total: 15. ED Course: 16:53 Patient arrived in ED. mr 16:59 Arm band placed on Patient placed in an exam room, on a stretcher. ll1 17:01 Triage completed. ll1 17:03 Gary Anthony PA is PHCP. jr8 17:03 Galo Jolley MD is Attending Physician. jr8 17:03 Elizabeth Perry, PEEWEE is Primary Nurse. ks7 17:15 Resting quietly. ks7 17:15 Patient has correct armband on for positive identification. Bed in low position. Call ks7 light in reach. Side rails up X2. Seizure precautions initiated. seizure pads on bedrails. 17:15 No provider procedures requiring assistance completed. Patient did not have IV access ks7 during this emergency room visit. Administered Medications: 17:14 Drug: TORadol 60 mg Route: IM; Site: right deltoid; ks7 17:34 Follow up: Pulse Ox 100% RA; Pain 0/10 Adult ks7 Outcome: 17:10 Discharge ordered by . jr8 17:31 Discharged to home ambulatory. ks7 17:31 Condition: good 17:31 Discharge instructions given to patient, Instructed on discharge instructions, medication usage, Demonstrated understanding of instructions, medications, Prescriptions given X 2. 17:35 Patient left the ED. ks7 Signatures: Elsa Gallegos Josh, PA PA jr8 Zen Lee RN RN ll1 Elizabeth Perry RN RN ks7
--- NOTE | 2020-05-27 07:28 | EDPHYS ---
Physician Documentation [facility] Name: Judy Ivory Age: 29 yrs Sex: Female : 1990 Arrival Date: 05/26/2020 Time: 16:53 Bed 19 Private MD: ED Physician Galo Jolley HPI: 05/26 17:13 This 29 yrs old Female presents to ER via Ambulatory with complaints of jr8 Probable Seizure, Headache. 17:13 Seizure onset: 2 hour(s) ago. Current symptoms: headache, that is mild. The patient has jr8 experienced similar episodes in the past, multiple times. The patient has not recently seen a physician. 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 Stated that she has been off of her medications for 3 days and needs refill. Stated that she feels much better and only has mild headache at this time. 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 - Social history:: Smoking status: Patient reports the use of cigarette tobacco products, smokes one-half pack cigarettes per day, Patient/guardian denies using alcohol, street drugs. ROS: 17:13 Eyes: Negative for injury, pain, redness, and discharge, ENT: Negative for injury, jr8 pain, and discharge, Neck: Negative for injury, pain, and swelling, Cardiovascular: Negative for chest pain, palpitations, and edema, Respiratory: Negative for shortness of breath, cough, wheezing, and pleuritic chest pain, Abdomen/GI: Negative for abdominal pain, nausea, vomiting, diarrhea, and constipation, Back: Negative for injury and pain, MS/Extremity: Negative for injury and deformity, Skin: Negative for injury, rash, and discoloration. 17:13 Neuro: Positive for headache, seizure activity. Exam: 17:13 Eyes: Pupils equal round and reactive to light, extra-ocular motions intact. Lids and jr8 lashes normal. Conjunctiva and sclera are non-icteric and not injected. Cornea within normal limits. Periorbital areas with no swelling, redness, or edema. ENT: Nares patent. No nasal discharge, no septal abnormalities noted. Tympanic membranes are normal and external auditory canals are clear. Oropharynx with no redness, swelling, or masses, exudates, or evidence of obstruction, uvula midline. Mucous membranes moist. Neck: Trachea midline, no thyromegaly or masses palpated, and no cervical lymphadenopathy. Supple, full range of motion without nuchal rigidity, or vertebral point tenderness. No Meningismus. Cardiovascular: Regular rate and rhythm with a normal S1 and S2. No gallops, murmurs, or rubs. Normal PMI, no JVD. No pulse deficits. Respiratory: Lungs have equal breath sounds bilaterally, clear to auscultation and percussion. No rales, rhonchi or wheezes noted. No increased work of breathing, no retractions or nasal flaring. Abdomen/GI: Soft, non-tender, with normal bowel sounds. No distension or tympany. No guarding or rebound. No evidence of tenderness throughout. Back: No spinal tenderness. No costovertebral tenderness. Full range of motion. Skin: Warm, dry with normal turgor. Normal color with no rashes, no lesions, and no evidence of cellulitis. MS/ Extremity: Pulses equal, no cyanosis. Neurovascular intact. Full, normal range of motion. Neuro: Awake and alert, GCS 15, oriented to person, place, time, and situation. Cranial nerves II-XII grossly intact. Motor strength 5/5 in all extremities. Sensory grossly intact. Cerebellar exam normal. Normal gait. Vital Signs: 16:59 BP 120 / 72; Pulse 90; Resp 18; Temp 98.4; Pulse Ox 99% ; Weight 72.57 kg; Height 5 ft. ll1 1 in. (154.94 cm); Pain 8/10; 17:14 BP 122 / 77; Pulse 68; Resp 18; Temp 98.4(O); Pulse Ox 100% on R/A; Pain 7/10; ks7 17:31 BP 113 / 75; Pulse 65; Resp 18; Temp 98.4(O); Pulse Ox 100% on R/A; Pain 0/10; ks7 17:34 Pulse Ox 100% on R/A; Pain 0/10; ks7 16:59 Body Mass Index 30.23 (72.57 kg, 154.94 cm) ll1 Jesusita Coma Score: 17:32 Eye Response: spontaneous(4). Verbal Response: oriented(5). Motor Response: obeys ks7 commands(6). Total: 15. MDM: 17:03 Patient medically screened. jr8 17:06 Data reviewed: vital signs, nurses notes, and as a result, I will discharge patient. jr8 Data interpreted: Pulse oximetry: on room air is 99 %. Interpretation: normal. Counseling: I had a detailed discussion with the patient and/or guardian regarding: the historical points, exam findings, and any diagnostic results supporting the discharge/admit diagnosis, the need for outpatient follow up, a neurologist, to return to the emergency department if symptoms worsen or persist or if there are any questions or concerns that arise at home. Administered Medications: 17:14 Drug: TORadol 60 mg Route: IM; Site: right deltoid; ks7 17:34 Follow up: Pulse Ox 100% RA; Pain 0/10 Adult ks7 Disposition: 18:00 Co-signature as Attending Physician, Galo Jolley MD. rn Disposition: 05/26/20 17:10 Discharged to Home. Impression: Migraine, Seizures. - Condition is Stable. - Discharge Instructions: Migraine Headache, Seizure, Adult. - Prescriptions for Depakote 125 mg Oral tablet,delayed release (DR/EC) - take 1 tablet by ORAL route once daily; 30 tablet. Depakote 250 mg Oral Tablet, Delayed Release (E.C.) - take 1 tablet by ORAL route once daily; 30 tablet. - Work release form, Medication Reconciliation Form, Thank You Letter, Antibiotic Education, Prescription Opioid Use form. - Follow up: Private Physician; When: 5 - 6 days; Reason: Recheck today's complaints, Continuance of care, Re-evaluation by your physician. - Problem is new. - Symptoms have improved. Signatures: Galo Jolley MD MD rn Roszak, Josh, PA PA jr8 Zen Lee RN RN ll1 Elizabeth Perry RN RN ks7 Corrections: (The following items were deleted from the chart) 17:35 17:10 05/26/2020 17:10 Discharged to Home. Impression: Migraine; Seizures. Condition is ks7 Stable. Forms are Medication Reconciliation Form, Thank You Letter, Antibiotic Education, Prescription Opioid Use. Follow up: Private Physician; When: 5 - 6 days; Reason: Recheck today's complaints, Continuance of care, Re-evaluation by your physician. Problem is new. Symptoms have improved. jr8
[2020-05-27 08:55] VITALS: TEMP 98.4
[2020-05-27 08:57] VITALS: O2SAT 100
[2020-05-27 08:58] VITALS: BP 113/75
== END 2020-05-26 17:35 | disposition home or self-care (01) ==
LOC: ER 16:50
DX: G43.909 Migraine, unspecified, not intractable, without status migrainosus (principal); G40.909 Epilepsy, unspecified, not intractable, without status epilepticus; F32.9 Major depressive disorder, single episode, unspecified; F17.210 Nicotine dependence, cigarettes, uncomplicated; Z88.5 Allergy status to narcotic agent
CPT/HCPCS: 96372; 99283

== ENCOUNTER 2020-06-21 02:41 | Emergency (ER) | payer OTHER ==
--- OUTSIDE RECORDS SUMMARY | 2020-06-21 02:44 | XMS REPORT | Continuity of Care Document ---
:[address] [facility] t Address [address] [place] [address] Care Team Providers Name Role Phone Edin [...] Known DA Active U [facility] All[facility] 03-20 [facility] s 00:00: d 00 [facility] Medications This patient has no known medications. Procedures This patient has no known procedures. Encounters Start End Encounter Admission Attending Care Care Encounter Source Date/Time Date/Time Type Type Clinicians Facility Department ID 2020-04-18 2020-04-18 Telephone Toni [facility] 1.2.840.114 [id number] 00:00:00 00:00:00 Ashvin Carvajal [id number] [place] [id number] [place] [id number] [address] 2020-04-14 2020-04-14 Telephone Toni [facility] 1.2.840.114 [id number] 00:00:00 00:00:00 Ashvin Carvajal [id number] [place] [id number] Professio [phone] [facility] 2020-04-14 2020-04-14 Orders Doctor GUS 1.2.840.114 [id number] 00:00:00 00:00:00 Only Unassigned, JULIOCESAR [id number] [facility] 4.2.7.2.686 [id number] [id number] 2020-04-11 2020-04-11 [facility] 1.2.840.114 [id number] 00:00:00 00:00:00 Ashvin Carvajal [id number] [place] [id number] Professio [phone] [address] 2020-04-09 2020-04-09 Mail Distribution Scheme Examiner Lab, [facility] 1.2.840.114 [id number] 09:39:01 09:54:01 [facility] [id number]2.686 [facility] [phone] Primary & [facility]ty [facility] 2020-04-01 2020-04-01 [facility] 1.2.840.114 [id number] 00:00:00 00:00:00 Ashvin Carvajal [id number] [place] [id number] Professio [phone] [address] 2020-03-28 2020-03-28 Office Toni [facility] 1.2.840.114 [id number] 15:02:40 15:54:52 Visit Ashvin Carvajal [id number] [place] [id number] Professio [phone] [address] 2020-03-28 2020-03-28 Letter [facility] 1.2.840.114 [id number] 00:00:00 00:00:00 (Out) Ashvin Jesus JUSTIN [id number] [facility].2.7.2.686 [facility] [phone] 092 Results Test Description Test Time Test Comments [...] code = AMORU) FEW NONE UR HCG [id number] 12:25:00 Test Item Value Reference Range Interpretation Comments UR HCG QUAL (test code = HCGQLU) NEGATIVE NEGATIVE URINALYSIS [id number] 12:12:00 Test Item Value Reference Range Interpretation [...] (test code = NONE BACU) UR HCG [id number] 12:12:00 Test Item Value Reference Range Interpretation Comments UR HCG QUAL (test code = HCGQLU) NEGATIVE NEGATIVE URINALYSIS [id number] 12:11:00 Test Item Value Reference Range Interpretation [...] (test code = BACU) NONE UR HCG [id number] 12:11:00 Test Item Value Reference Range Interpretation Comments UR HCG QUAL (test code = HCGQLU) NEGATIVE NEGATIVE BASIC METABOLIC [id number] 11:18:00 Test Item Value Reference Range Interpretation [...] CA) 8.9 mg/dl 8.0-10.5 N CBC W/AUTO [id number] 11:04:00 Test Item Value Reference Range Interpretation [...] = BA#) 0.1 K/mm3 0.0-0.2 N Culture, [id number] 10:59:00 Test Item Value Reference Range Interpretation Comments Culture, Urine (test Urine specimen contains 3 code = URC) or more different organisms, Culture, Urine (test clinically indicated. code = URC1) Culture, Urine (test NF N code = URC1) Culture, Urine (test 75 MSF N code = URC1) Chemistry - [id number] 11:43:00 Test Item Value Reference Range Interpretation [...] - 3 months 10,000 - 100,00 0 [id number] 21:09:00 Test Item Value Reference Range Interpretation [...] A UABAC) Urine Source: Urine Clean CatchType [id number] 21:02:00 Test Item Value Reference Range Interpretation Comments Blood Type Rh (test code = BT) BP [id number] 21:01:00 Test Item Value Reference Range Interpretation [...] 8-55 N code = ALT) Chemistry - [id number] 21:01:00 Test Item Value Reference Range Interpretation Comments Chemistry - Specials POSITIVE NEGATIVE A Method of sensitivity- (test code = BHCGST) Indete rminant: results should be repeated after 48-72 hrs Positive: results may be detected as ear ly as 1 day after the first missed menses. [id number] 20:48:00 Test Item Value Reference Range Interpretation [...]
--- OUTSIDE RECORDS SUMMARY | 2020-06-21 02:46 | XMS REPORT | Summary of Care ---
:1990 Author Organization [facility] Address [address] [place] [id number] Care Team Providers Name Role Phone Pcp, Does Not Have A Primary Care Provider Encounter Details Date Type Department Care Team Description 03/28/2020 Letter (Out) [facility] Neurology- Ashvin Muñoz MD [address] [address] [place] [address], [address] [place] [address] [address] [place] [address] Allergies Active Allergy Reactions Severity Noted Date Comments Hydrocodone Nausea and/or Vomiting 11/15/2009 documented as of this encounter (statuses as of 06/19/2020) Medications Medication Sig Dispensed Refills Start Date [...] as of this encounter (statuses as of 06/19/2020) Active Problems Patient Care Coordination Note IOL [...] as of this encounter (statuses as of 06/19/2020) Resolved Problems Problem Noted Date Resolved Date [...] anemia 11/18/2009 02/18/2016 Overview: ICD10 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-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 of young primigravida 11/200902/18/2016 Obesity 11/18/2009 02/18/2016 Second-degree perineal laceration, with delivery 11/17/2009 02/18/2016 Streptococcus B carrier or suspected carrier 11/17/2009 02/18/2016 Teen 11/17/2009 02/18/2016 Chlamydia 11/17/2009 02/18/2016 documented as of this encounter (statuses as of 06/19/2020) Immunizations Name Administration Dates Next Due HPV9 09/27/2016 TDAP 07/13/2016 documented as of this encounter Social History Tobacco Use Types Packs/Day Years Used Date Current Every Day Smoker Cigarettes 0.5 12 Sta rted: 06/09/2006 Smokeless Tobacco: Never Used Alcohol Use Drinks/Week oz/Week Comments No 0 Standard drinks or equivalent 0.0 Sex Assigned at Date Recorded Not on file documented as of this encounter Last Filed Vital Signs Not on filedocumented in this encounter Plan of Treatment Health Maintenance Due Date Last Done Comments PNEUMOCOCCAL 0-64 YEARS COMBINED 1996 SERIES (1 of 1 - PPSV23) Depression Screening 2002 PAP SMEAR 02/09/2019 02/10/2016, 05/08/2009, 07/22/2008, Additional history exists INFLUENZA VACCINE (#1) 2020 DTaP,Tdap,and Td Vaccines (2 - Td) 07/13/2026 07/13/2016 documented as of this encounter Results Not on filedocumented in this encounter Insurance Payer Benefit Plan / Subscriber ID Effective Dates Phone Addre ss Type Group [facility] [id number] 2018-Present Medicaid COMM PLAN - MANAGED MEDICAID [facility] Effective for Medicaid COMM PLAN - all dates MANAGED MEDICAID documented as of this encounter Advance Directives Name Relationship Healthcare Agent Relationship Co mmunication Mel Dewitt Mother Health Care Agent
[2020-06-21] MEDS ORDERED: KETOROLAC 30 MG/ML INJ ONE (03:16)
[2020-06-21] MEDS ORDERED: METOCLOPRAMIDE 10 MG/2mL INJ ONE (03:16)
--- NOTE | 2020-06-21 03:33 | ER ---
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 she has absent mal seizure disorder every day since the head trauma/concussion. took tylenol but not helping. 02:50 Method Of Arrival: Ambulatory mg2 02:58 Coronavirus screen: Client denies travel out of the [place] in the last 14 days. At this mg2 time, the client does not indicate any symptoms associated with coronavirus-19. Ebola Screen: No symptoms or risks identified at this time. Initial Sepsis Screen: Does the patient meet any 2 criteria? No. Patient's initial sepsis screen is negative. Does the patient have a suspected source of infection? No. Patient's initial sepsis screen is negative. Risk Assessment: Do you want to hurt yourself or someone else?. Onset of symptoms was June 21, 2020. 02:58 Acuity: NICOLETTE 3 mg2 Triage Assessment: 03:00 Headache History: The patient has had previous headaches and this one is similar to mg2 previous episodes. General: Appears in no apparent distress. comfortable, Behavior is calm, cooperative. Pain: Complains of pain in left mosque Pain currently is 8 out of 10 on a pain scale. Pain began gradually, 30 min ago. Also complains of no other associated symptoms. EENT: No signs and/or symptoms were reported regarding the EENT system. Neuro: Level of Consciousness is awake, alert, obeys commands, Oriented to person, place, time, situation. Cardiovascular: Capillary refill < 3 seconds Patient's skin is warm and dry. Respiratory: Airway is patent Respiratory effort is even, unlabored, Respiratory pattern is regular, symmetrical. GI: No signs and/or symptoms were reported involving the gastrointestinal system. : No signs and/or symptoms were reported regarding the genitourinary system. Derm: Skin is intact, is healthy with good turgor, Skin is pink, warm \T\ dry. normal. Musculoskeletal: Circulation, motion, and sensation intact. Capillary refill < 3 seconds. VP CLIENT SERVICES: 03:02 LMP 05/2020 mg2 Historical: - Allergies: 03:00 Hydrocodone-Acetaminophen; mg2 - Home Meds: 03:00 Amitriptyline Oral [Active]; Depakote Oral [Active]; mg2 - PMHx: 03:00 Depression; ectopic ; Migraines; mg2 - PSHx: 03:00 tubal; mg2 - Immunization history:: Flu vaccine status is unknown. - Social history:: Smoking status: Patient reports the use of cigarette tobacco products, smokes one-half pack cigarettes per day, Patient uses alcohol, occasionally. Patient/guardian denies using street drugs, IV drugs. Screenin:01 Abuse screen: Denies threats or abuse. Denies injuries from another. Nutritional mg2 screening: No deficits noted. Tuberculosis screening: No symptoms or risk factors identified. Fall Risk Secondary diagnosis (15 points) seizures, IV access (20 points). Assessment: 03:01 General: see triage assessment. mg2 03:39 Pain: Denies pain. Neuro: Level of Consciousness is awake, alert, obeys commands, rv Oriented to person, place, time, situation. Neuro: Moves all extremities. Full function. Cardiovascular: Patient's skin is warm and dry. Respiratory: Airway is patent. Vital Signs: 02:58 BP 129 / 98; Pulse 99; Resp 18; Temp 98.3; Pulse Ox 97% on R/A; Weight 72.57 kg; Height mg2 5 ft. 1 in. (154.94 cm); 03:39 BP 131 / 95; Pulse 96; Resp 16; Temp 98; Pulse Ox 99% on R/A; rv 02:58 Body Mass Index 30.23 (72.57 kg, 154.94 cm) mg2 [place] Coma Score: 05:24 Eye Response: spontaneous(4). Verbal Response: oriented(5). Motor Response: obeys tw4 commands(6). Total: 15. ED Course: 02:42 Patient arrived in ED. am2 02:44 Jack Hendrix, PEEWEE is Primary Nurse. rv 02:46 Braden Law MD is Attending Physician. tw4 02:59 Triage completed. mg2 02:59 Arm band placed on. mg2 03:00 Seizure precautions initiated. mg2 03:01 Patient has correct armband on for positive identification. Door closed. Warm blanket mg2 given. 03:01 No provider procedures requiring assistance completed. mg2 03:15 Patient did not have IV access during this emergency room visit. mg2 Administered Medications: 03:14 Drug: TORadol 60 mg Route: IM; Site: left gluteus; mg2 03:39 Follow up: Response: No adverse reaction; Marked relief of symptoms; Pain is decreased rv 03:15 Drug: Reglan 10 mg Route: IM; Site: right gluteus; mg2 03:39 Follow up: Response: No adverse reaction; Marked relief of symptoms; Pain is decreased rv Outcome: 03:33 Discharge ordered by . adilene 03:40 Discharged to home ambulatory. rv 03:40 Condition: improved 03:40 Discharge instructions given to patient, Instructed on discharge instructions, follow up and referral plans. medication usage, Demonstrated understanding of instructions, follow-up care, medications, Prescriptions given X 2. 03:40 Patient left the ED. rv Signatures: Patti Little am2 Braden Law MD MD tw4 Emeterio Kahn, RN RN mg2 Jack Hendrix RN RN rv
--- NOTE | 2020-06-21 03:33 | EDPHYS ---
Physician Documentation [facility] [place], [place] Name: Judy Ivory Age: 29 yrs Sex: Female : 1990 Arrival Date: 06/21/2020 Time: 02:42 Bed 7 Private MD: ED Physician Braden Law HPI: 06/21 05:24 This 29 yrs old Female presents to ER via Ambulatory with complaints of tw4 Headache, Probable Seizure. 05:24 The patient complains of pain to the forehead, left cheek and left voodoo. tw4 05:24 The patient describes the headache as aching. Onset: The symptoms/episode tw4 began/occurred today. Associated signs and symptoms: The patient has no apparent associated signs or symptoms. Severity of symptoms: At its worst the pain was moderate, in the emergency department the pain is unchanged. Headache History: The patient has had previous headaches and this one is similar to previous episodes, and this one is more severe than previous episodes. The patient has not experienced similar symptoms in the past. 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 - Social history:: Smoking status: Patient reports the use of cigarette tobacco products, smokes one-half pack cigarettes per day, Patient uses alcohol, occasionally. Patient/guardian denies using street drugs, IV drugs. ROS: 05:24 Constitutional: Negative for fever, chills, and weight loss, Eyes: Negative for injury, tw4 pain, redness, and discharge, Cardiovascular: Negative for chest pain, palpitations, and edema, Respiratory: Negative for shortness of breath, cough, wheezing, and pleuritic chest pain, Abdomen/GI: Negative for abdominal pain, nausea, vomiting, diarrhea, and constipation, MS/Extremity: Negative for injury and deformity, Skin: Negative for injury, rash, and discoloration. 05:24 Neuro: Positive for headache, Negative for altered mental status, dizziness, gait disturbance, numbness, seizure activity, speech changes, syncope, near syncope, tinnitus, tremor. Exam: 05:24 Constitutional: This is a well developed, well nourished patient who is awake, alert, tw4 and in no acute distress. Head/Face: Normocephalic, atraumatic. Chest/axilla: Normal chest wall appearance and motion. Nontender with no deformity. No lesions are appreciated. Cardiovascular: Regular rate and rhythm with a normal S1 and S2. No gallops, murmurs, or rubs. Normal PMI, no JVD. No pulse deficits. Respiratory: Lungs have equal breath sounds bilaterally, clear to auscultation and percussion. No rales, rhonchi or wheezes noted. No increased work of breathing, no retractions or nasal flaring. Abdomen/GI: Soft, non-tender, with normal bowel sounds. No distension or tympany. No guarding or rebound. No evidence of tenderness throughout. Back: No spinal tenderness. No costovertebral tenderness. Full range of motion. MS/ Extremity: Pulses equal, no cyanosis. Neurovascular intact. Full, normal range of motion. Neuro: Awake and alert, GCS 15, oriented to person, place, time, and situation. Cranial nerves II-XII grossly intact. Motor strength 5/5 in all extremities. Sensory grossly intact. Cerebellar exam normal. Normal gait. Vital Signs: 02:58 BP 129 / 98; Pulse 99; Resp 18; Temp 98.3; Pulse Ox 97% on R/A; Weight 72.57 kg; Height mg2 5 ft. 1 in. (154.94 cm); 03:39 BP 131 / 95; Pulse 96; Resp 16; Temp 98; Pulse Ox 99% on R/A; rv 02:58 Body Mass Index 30.23 (72.57 kg, 154.94 cm) mg2 [place] Coma Score: 05:24 Eye Response: spontaneous(4). Verbal Response: oriented(5). Motor Response: obeys tw4 commands(6). Total: 15. MDM: 02:46 Patient medically screened. tw4 05:24 Data reviewed: vital signs, nurses notes. Data interpreted: Pulse oximetry: tw4 Interpretation: normal. Counseling: I had a detailed discussion with the patient and/or guardian regarding: the historical points, exam findings, and any diagnostic results supporting the discharge/admit diagnosis, the presence of at least one elevated blood pressure reading (>120/80) during this emergency department visit, lab results. Medication response: Toradol partially relieved the patient's pain. Response to treatment: and as a result, I will discharge patient. Special discussion: I discussed with the patient/guardian in detail that at this point there is no indication for admission to the hospital. It is understood, however, that if the symptoms persist or worsen the patient needs to return immediately for re-evaluation. Administered Medications: 03:14 Drug: TORadol 60 mg Route: IM; Site: left gluteus; mg2 03:39 Follow up: Response: No adverse reaction; Marked relief of symptoms; Pain is decreased rv 03:15 Drug: Reglan 10 mg Route: IM; Site: right gluteus; mg2 03:39 Follow up: Response: No adverse reaction; Marked relief of symptoms; Pain is decreased rv Disposition: 06/21/20 03:33 Discharged to Home. Impression: Migraine with aura, not intractable, without status migrainosus. - Condition is Stable. - Discharge Instructions: Migraine Headache, Recurrent Migraine Headache. - Prescriptions for Fiorinal 50- 325-40 mg Oral Capsule - take 1 capsule by ORAL route every 4 hours As needed - not to exceed 6 capsules per day; 20 capsule. Reglan 10 mg Oral Tablet - take 1 tablet by ORAL route every 6 hours take 30 minutes before meals and at bedtime; 20 tablet. - Medication Reconciliation Form, Thank You Letter, Antibiotic Education, Prescription Opioid Use form. - Follow up: Private Physician; When: Upon discharge from the Emergency Department; Reason: Recheck today's complaints, Continuance of care, Re-evaluation by your physician. - Problem is new. - Symptoms have improved. Signatures: Braden Law MD MD tw4 Emeterio Kahn RN RN mg2 Jack Hendrix RN RN rv Corrections: (The following items were deleted from the chart) 03:40 03:33 06/21/2020 03:33 Discharged to Home. Impression: Migraine with aura, not rv intractable, without status migrainosus. Condition is Stable. Forms are Medication Reconciliation Form, Thank You Letter, Antibiotic Education, Prescription Opioid Use. Follow up: Private Physician; When: Upon discharge from the Emergency Department; Reason: Recheck today's complaints, Continuance of care, Re-evaluation by your physician. Problem is new. Symptoms have improved. tw4
[2020-06-22 08:06] VITALS: BP 131/95; TEMP 98; O2SAT 99
== END 2020-06-21 03:40 | disposition home or self-care (01) ==
LOC: ER 02:41
DX: G43.109 Migraine with aura, not intractable, without status migrainosus (principal); F32.9 Major depressive disorder, single episode, unspecified; F17.210 Nicotine dependence, cigarettes, uncomplicated; Z88.5 Allergy status to narcotic agent
CPT/HCPCS: 96372; 99283; J2765

== ENCOUNTER 2021-04-19 22:42 | Emergency (ER) | payer OTHER ==
--- OUTSIDE RECORDS SUMMARY | 2021-04-19 22:50 | XMS REPORT | Continuity of Care Document ---
:1990 Author Organization [facility] t Address [address] [place] [address] Care Team Providers Name Role Phone Nic Bey DO Attending Clinician Doctor Unassigned, Name Attending Clinician Unavailable Edin Muñoz MD Attending Clinician Lab, Cbc Attending Clinician Unavailable PIEDAD Attending Clinician Unavailable CURTIS Attending Clinician Unavailable Payers Payer Name Policy Type Policy Number Effective Date Expiration Date S ource Problems This patient has no known problems. Allergies, Adverse Reactions, Alerts Allergy Allergy Status Severity Reaction(s) Onset Inactive Treating Comm ents Source Name Type Date Date Clinician No Known DA Active U [facility]ie 03-20 [facility] 00:00: d 00 [facility] Medications This patient has no known medications. Procedures This patient has no known procedures. Encounters Start End Encounter Admission Attending Care Care Encounter Source Date/Time Date/Time Type Type Clinicians Facility Department ID 2021-01-06 2021-01-06 Patient Sotero [facility] [id number] 00:00:00 00:00:00 Outreach Jhony ANDERSON [id number] Nic [facility] [id number] [place] [id number] 2020-10-14 2020-10-14 Orders Doctor WEBER [id number] 00:00:00 00:00:00 Only Unassigned, JULIOCESAR [id number] [place] [facility] [id number] 2020-04-18 2020-04-18 Telephone Toni [facility] [id number] 00:00:00 00:00:00 Ashvin Carvajal [id number] [place] [id number] Professio [phone] [address] 2020-04-14 2020-04-14 Telephone Toni [facility] [id number] 00:00:00 00:00:00 Ashvin Carvajal [id number] [place] [id number] Professio [phone] [address] 2020-04-14 2020-04-14 Orders Doctor GUS [id number] 00:00:00 00:00:00 Only Unassigned, JULIOCESAR [id number] [place] [facility] [id number] 2020-04-11 2020-04-11 Telephone Toni [facility] [id number] 00:00:00 00:00:00 Ashvin Carvajal [id number] [place] [id number] Professio [phone] [address] 2020-04-09 2020-04-09 [facility], [facility] 1.2.840.114 [id number] 09:39:01 09:54:01 Visit [facility] [id number] [facility] [phone] Primary & [facility] Specialty Care 2020-04-01 2020-04-01 Telephone Toni [facility] 1.2.840.114 [id number] 00:00:00 00:00:00 Ashvin Carvajal [id number] [place] [id number] Professio [phone] [address] 2020-03-28 2020-03-28 Office Toni [facility] 1.2.840.114 [id number] 15:02:40 15:54:52 Visit Ashvin Carvajal [id number] [place] [id number] Professio [phone] nal [address] Building 2020-03-28 2020-03-28 Brandy Muñoz [facility] [id number] 00:00:00 00:00:00 (Out) Ashvin Jesus PRIMARY [id number] CARE [id number] PAVILLION [id number] 2020-01-08 2020-01-08 Emergency [facility] [id number] 17:51:00 17:51:00 l [facility] l [facility] l Results Test Description Test Time Test Comments [...] code = AMORU) FEW NONE UR HCG [id number] 12:25:00 Test Item Value Reference Range Interpretation Comments UR HCG QUAL (test code = HCGQLU) NEGATIVE NEGATIVE URINALYSIS [id number] 12:12:00 Test Item Value Reference Range Interpretation [...] (test code = NONE BACU) UR HCG [id number] 12:12:00 Test Item Value Reference Range Interpretation Comments UR HCG QUAL (test code = HCGQLU) NEGATIVE NEGATIVE URINALYSIS [id number] 12:11:00 Test Item Value Reference Range Interpretation [...] (test code = BACU) NONE UR HCG [id number] 12:11:00 Test Item Value Reference Range Interpretation Comments UR HCG QUAL (test code = HCGQLU) NEGATIVE NEGATIVE BASIC METABOLIC [id number] 11:18:00 Test Item Value Reference Range Interpretation [...] CA) 8.9 mg/dl 8.0-10.5 N CBC W/AUTO [id number] 11:04:00 Test Item Value Reference Range Interpretation [...] = BA#) 0.1 K/mm3 0.0-0.2 N Culture, [id number] 10:59:00 Test Item Value Reference Range Interpretation Comments Culture, Urine (test Urine specimen contains 3 code = URC) or more different organisms, Culture, Urine (test clinically indicated. code = URC1) Culture, Urine (test NF N code = URC1) Culture, Urine (test 75 MSF N code = URC1) Chemistry - [id number] 11:43:00 Test Item Value Reference Range Interpretation [...] - 3 months 10,000 - 100,00 0 [id number] 21:09:00 Test Item Value Reference Range Interpretation [...] A UABAC) Urine Source: Urine Clean CatchType [id number] 21:02:00 Test Item Value Reference Range Interpretation Comments Blood Type Rh (test code = BT) BP Chemistry - [id number] 21:01:00 Test Item Value Reference Range Interpretation Comments Chemistry - Specials POSITIVE NEGATIVE A Method of sensitivity- (test code = BHCGST) Indete rminant: results should be repeated after 48-72 hrs Positive: results may be detected as ear ly as 1 day after the first missed menses. [id number] 21:01:00 Test Item Value Reference Range Interpretation [...] 18 U/L 8-55 N code = ALT) [id number] 20:48:00 Test Item Value Reference Range Interpretation [...]
--- NOTE | 2021-04-20 00:49 | EDPHYS ---
Physician Documentation [facility] Name: Judy Ivory Age: 30 yrs Sex: Female : 1990 Arrival Date: 04/19/2021 Time: 22:45 Bed 19 Private MD: ED Physician Seb Rivera HPI: 04/19 23:10 This 30 yrs old Female presents to ER via Ambulatory with complaints of pm1 Fever, Sore Throat. 23:10 The patient reports fever, not measured (subjective). Onset: The symptoms/episode pm1 began/occurred yesterday. Modifying factors: there are no obvious modifying factors. Associated signs and symptoms: Pertinent positives: chills, bodyaches, febrile seizure, Pertinent negatives: abdominal pain, chest pain, cough, diarrhea, earache, nausea, shortness of breath, vomiting. Severity of symptoms: in the emergency department the symptoms have improved no current fever or chills with OTC medication. The patient has not recently seen a physician. Historical: - Allergies: 23:01 Hydrocodone-Acetaminophen; em - Home Meds: 23:10 Amitriptyline Oral [Active]; Depakote Oral [Active]; ak2 - PMHx: 23:01 Depression; ectopic ; Migraines; em - PSHx: 23:01 tubal; em - Immunization history:: Adult Immunizations up to date, Client reports having NOT received the Covid vaccine. - Social history:: Smoking status: Patient denies any tobacco usage or history of. ROS: 23:10 Eyes: Negative for injury, pain, redness, and discharge. pm1 23:10 Neck: Negative for injury, pain, and swelling, Cardiovascular: Negative for chest pain, palpitations, and edema, Respiratory: Negative for shortness of breath, cough, wheezing, and pleuritic chest pain, Abdomen/GI: Negative for abdominal pain, nausea, vomiting, diarrhea, and constipation, Back: Negative for injury and pain, MS/Extremity: Negative for injury and deformity, Skin: Negative for injury, rash, and discoloration. 23:10 Constitutional: Positive for body aches, chills, fever, Negative for poor PO intake. 23:10 ENT: Positive for sore throat, Negative for ear pain, difficulty swallowing, difficulty handling secretions, hoarseness. 23:10 Neuro: Negative for headache. 23:10 All other systems are negative. Exam: 23:10 Constitutional: This is a well developed, well nourished patient who is awake, alert, pm1 and in no acute distress. Head/Face: Normocephalic, atraumatic. 23:10 Neck: Trachea midline, no thyromegaly or masses palpated, and no cervical lymphadenopathy. Supple, full range of motion without nuchal rigidity, or vertebral point tenderness. No Meningismus. 23:10 Skin: Warm, dry with normal turgor. Normal color with no rashes, no lesions, and no evidence of cellulitis. MS/ Extremity: Pulses equal, no cyanosis. Neurovascular intact. Full, normal range of motion. 23:10 Eyes: Exam is negative for acute changes, Extraocular movements: no acute changes, Conjunctiva: normal, no injection, Sclera: no acute changes, icterus, is not appreciated. 23:10 ENT: Posterior pharynx: Tonsils: bilaterally enlarged, with erythema, no exudate, no ulcerations, erythema, that is mild, peritonsillar mass, is not appreciated. 23:10 Cardiovascular: Rate: normal, Rhythm: regular, Pulses: no pulse deficits are appreciated. 23:10 Respiratory: Exam negative for acute changes, respiratory distress, shortness of breath, Breath sounds: are clear throughout. 23:10 Neuro: Exam negative for acute changes, Orientation: is normal, Mentation: is normal, Motor: is normal, moves all fours. Vital Signs: 22:59 BP 121 / 89; Pulse 110; Resp 18; Temp 97.8; Pulse Ox 99% on R/A; Weight 63.5 kg; Height em 5 ft. 1 in. (154.94 cm); Pain 6/10; 23:08 Pulse 87; Pulse Ox 100% on R/A; ak2 04/20 00:59 BP 115 / 67; Pulse 76; Resp 16; Pulse Ox 98% on R/A; ak2 04/19 22:59 Body Mass Index 26.45 (63.50 kg, 154.94 cm) em MDM: 04/19 23:01 Patient medically screened. pm1 04/20 00:16 Data reviewed: vital signs. Data interpreted: Pulse oximetry: on room air is 100 %. pm1 Interpretation: normal. 00:48 Counseling: I had a detailed discussion with the patient and/or guardian regarding: the pm1 historical points, exam findings, and any diagnostic results supporting the discharge/admit diagnosis, lab results, the need for outpatient follow up, to return to the emergency department if symptoms worsen or persist or if there are any questions or concerns that arise at home. 04/19 23:06 Order name: Flu pm1 04/19 23:06 Order name: Strep; Complete Time: 00:04 pm1 04/19 23:07 Order name: Influenza Screen (A ; Complete Time: 00:04 EDMS 04/19 23:55 Order name: Throat Culture EDMS 04/20 00:29 Order name: SARS-COV-2 RT PCR; Complete Time: 00:40 EDMS Administered Medications: No medications were administered Disposition: 02:00 Co-signature as Attending Physician, Seb Rivera MD. arthur Disposition Summary: 04/20/21 00:49 Discharge Ordered Location: Home pm1 Problem: new pm1 Symptoms: have improved pm1 Condition: Stable pm1 Diagnosis - Acute pharyngitis, unspecified pm1 Followup: pm1 - With: Emergency Department - When: As needed - Reason: Worsening of condition Followup: pm1 - With: Private Physician - When: 2 - 3 days - Reason: Recheck today's complaints, Continuance of care, Re-evaluation by your physician Discharge Instructions: - Discharge Summary Sheet pm1 - Pharyngitis pm1 Forms: - Medication Reconciliation Form pm1 - Thank You Letter pm1 - Antibiotic Education pm1 - Prescription Opioid Use pm1 Signatures: Dispatcher [employer] EDSeb Robertson MD MD pkJsoeph Mckinney RN RN Anthony Lui NP MANAGER INVENTORY pm1 Sylvain Lees2 Corrections: (The following items were deleted from the chart) 04/19 23:32 23:07 CORONAVIRUS+BRZ ordered. EDIA EDIA
--- NOTE | 2021-04-20 00:49 | ER ---
Nurse's Notes [facility] Name: Judy Ivory Age: 30 yrs Sex: Female : 1990 Arrival Date: 04/19/2021 Time: 22:45 Bed 19 Private MD: Diagnosis: Acute pharyngitis, unspecified Presentation: 04/19 22:59 Chief complaint: Patient states: sore throat, body aches and fever since yesterday, em would like a covid swab. Coronavirus screen: Client denies travel out of the [place] in the last 14 days. Ebola Screen: Patient negative for fever greater than or equal to 101.5 degrees Fahrenheit, and additional compatible Ebola Virus Disease symptoms Patient denies exposure to infectious person. Patient denies travel to an Ebola-affected area in the 21 days before illness onset. No symptoms or risks identified at this time. Initial Sepsis Screen: Does the patient meet any 2 criteria? HR > 90 bpm. No. Patient's initial sepsis screen is negative. Does the patient have a suspected source of infection? No. Patient's initial sepsis screen is negative. Risk Assessment: Do you want to hurt yourself or someone else? Patient reports no desire to harm self or others. Onset of symptoms was April 19, 2021. 22:59 Method Of Arrival: Ambulatory em 22:59 Acuity: NICOLETTE 4 em Triage Assessment: 23:07 General: Appears in no apparent distress. Behavior is calm, cooperative. Pain: ak2 Complains of pain in "everywhere". EENT: No deficits noted. Neuro: No deficits noted. Cardiovascular: No deficits noted. Respiratory: No deficits noted. Historical: - Allergies: 23:01 Hydrocodone-Acetaminophen; em - Home Meds: 23:10 Amitriptyline Oral [Active]; Depakote Oral [Active]; ak2 - PMHx: 23:01 Depression; ectopic ; Migraines; em - PSHx: 23:01 tubal; em - Immunization history:: Adult Immunizations up to date, Client reports having NOT received the Covid vaccine. - Social history:: Smoking status: Patient denies any tobacco usage or history of. Screenin:08 Abuse screen: Denies threats or abuse. Denies injuries from another. Nutritional ak2 screening: No deficits noted. Tuberculosis screening: No symptoms or risk factors identified. Fall Risk None identified. Assessment: 23:09 Respiratory: Airway is patent Respiratory effort is even, unlabored, Breath sounds are ak2 clear bilaterally. EENT: Throat is clear. Vital Signs: 22:59 BP 121 / 89; Pulse 110; Resp 18; Temp 97.8; Pulse Ox 99% on R/A; Weight 63.5 kg; Height em 5 ft. 1 in. (154.94 cm); Pain 6/10; 23:08 Pulse 87; Pulse Ox 100% on R/A; ak2 07 00:59 BP 115 / 67; Pulse 76; Resp 16; Pulse Ox 98% on R/A; ak2 04/19 22:59 Body Mass Index 26.45 (63.50 kg, 154.94 cm) em ED Course: 04/19 22:45 Patient arrived in ED. bp1 23:01 Triage completed. em 23:01 Anthony Razo NP is PHCP. pm1 23:01 Seb Rivera MD is Attending Physician. pm1 23:01 Arm band placed on. em 23:03 Sylvain Lees is Primary Nurse. ak2 23:08 Patient has correct armband on for positive identification. ak2 23:08 No provider procedures requiring assistance completed. Patient did not have IV access ak2 during this emergency room visit. Administered Medications: No medications were administered Outcome: 07 00:49 Discharge ordered by . pm1 00:59 Discharged to home ambulatory. ak2 00:59 Condition: good 00:59 Discharge instructions given to patient. 01:00 Patient left the ED. ak2 Signatures: Joseph Harvey RN RN Anthony Razo NP CONSULTANT EDUCATION pm1 Cayla Correa [facility] Sylvain Lees ak2
[2021-04-20 01:04] VITALS: TEMP 97.8
[2021-04-20 01:07] VITALS: BP 115/67; O2SAT 98
== END 2021-04-20 01:00 | disposition home or self-care (01) ==
LOC: ER 22:42
DX: J02.9 Acute pharyngitis, unspecified (principal); F32.9 Major depressive disorder, single episode, unspecified; Z20.822 Contact with and (suspected) exposure to COVID-19; Z88.5 Allergy status to narcotic agent
CPT/HCPCS: 87070; 87081; 87804 ×2; 99281; U0003

== ENCOUNTER 2021-04-20 21:19 | Emergency (ER) | payer OTHER ==
--- OUTSIDE RECORDS SUMMARY | 2021-04-20 21:33 | XMS REPORT | Continuity of Care Document ---
:1990 Author Organization [facility] t Address [address] [place] [address] Care Team Providers Name Role Phone Nic [...] Known DA Active U [facility] All[facility]ie 03-[address] [facility] 00:00: d 00 [facility] Medications This patient has no known medications. Procedures This patient has no known procedures. Encounters Start End Encounter Admission Attending Care Care Encounter Source Date/Time Date/Time Type Type Clinicians Facility Department ID 2021-01-06 2021-01-06 Patient Sotero [facility] [id number] 00:00:00 00:00:00 Outreach Jhony ANDERSON [id number] Nic [facility] [id number] [place] [id number] 2020-10-14 2020-10-14 Orders Doctor WEBER 1.2.840.114 [id number] 00:00:00 00:00:00 Only Unassigned, JULIOCESAR [id number] [place] [id number] 2020-04-18 2020-04-18 Telephone Toni [facility] [id number] 00:00:00 00:00:00 Ashvin Carvajal [id number] [place] [id number] Professio [phone] [address] 2020-04-14 2020-04-14 Telephone Toni [facility] [id number] 00:00:00 00:00:00 Ashvin Carvajal [id number] [place] [id number] Professio [phone] [address] 2020-04-14 2020-04-14 Orders Doctor GUS [id number] 00:00:00 00:00:00 Only Unassigned, JULIOCESAR [id number] [place] [facility] [id number] [id number] 2020-04-11 2020-04-11 Telephone Toni [facility] 1.2.840.114 [id number] 00:00:00 00:00:00 Ashvin Carvajal [id number] [place] [id number] Professio [id number] [address] 2020-04-09 2020-04-09 Entry Level Management Lab, [facility] 1.2.840.114 [id number] 09:39:01 09:54:01 Visit [facility] [id number] [facility] [phone] Primary & [facility] Care 2020-04-01 2020-04-01 Telephone Toni [facility] 1.2.840.114 [id number] 00:00:00 00:00:00 Ashvin Carvajal [id number] [place] [id number] Professio [phone] [address] 2020-03-28 2020-03-28 Office Toni [facility] 1.2.840.114 [id number] 15:02:40 15:54:52 Visit Ashvin Carvajal [id number] [place] [id number] Professio [id number] nal [address] Building 2020-03-28 2020-03-28 Brandy Muñoz [facility] 1.2.840.114 [id number] 00:00:00 00:00:00 (Out) Ashvin Jesus PRIMARY [id number] CARE [id number] PAVILLION [id number] 2020-01-08 2020-01-08 Emergency E [facility] [id number] 17:51:00 17:51:00 l [facility] [place] l Results Test Description Test Time Test [...] code = AMORU) FEW NONE UR HCG [id number] 12:25:00 Test Item Value Reference Range Interpretation Comments UR HCG QUAL (test code = HCGQLU) NEGATIVE NEGATIVE URINALYSIS [id number] 12:12:00 Test Item Value Reference Range Interpretation [...] (test code = NONE BACU) UR HCG [id number] 12:12:00 Test Item Value Reference Range Interpretation Comments UR HCG QUAL (test code = HCGQLU) NEGATIVE NEGATIVE URINALYSIS [id number] 12:11:00 Test Item Value Reference Range Interpretation [...] (test code = BACU) NONE UR HCG [id number] 12:11:00 Test Item Value Reference Range Interpretation Comments UR HCG QUAL (test code = HCGQLU) NEGATIVE NEGATIVE BASIC METABOLIC [id number] 11:18:00 Test Item Value Reference Range Interpretation [...] CA) 8.9 mg/dl 8.0-10.5 N CBC W/AUTO [id number] 11:04:00 Test Item Value Reference Range Interpretation [...] = BA#) 0.1 K/mm3 0.0-0.2 N Culture, [id number] 10:59:00 Test Item Value Reference Range Interpretation Comments Culture, Urine (test Urine specimen contains 3 code = URC) or more different organisms, Culture, Urine (test clinically indicated. code = URC1) Culture, Urine (test NF N code = URC1) Culture, Urine (test 75 MSF N code = URC1) Chemistry - [id number] 11:43:00 Test Item Value Reference Range Interpretation [...] - 3 months 10,000 - 100,00 0 [id number] 21:09:00 Test Item Value Reference Range Interpretation [...] A UABAC) Urine Source: Urine Clean CatchType [id number] 21:02:00 Test Item Value Reference Range Interpretation Comments Blood Type Rh (test code = BT) BP [id number] 21:01:00 Test Item Value Reference Range Interpretation [...] 8-55 N code = ALT) Chemistry - [id number] 21:01:00 Test Item Value Reference Range Interpretation Comments Chemistry - Specials POSITIVE NEGATIVE A Method of sensitivity- (test code = BHCGST) Indete rminant: results should be repeated after 48-72 hrs Positive: results may be detected as ear ly as 1 day after the first missed menses. [id number] 20:48:00 Test Item Value Reference Range Interpretation [...]
[2021-04-20] MEDS ORDERED: NA CHLORIDE 0.9% 1,000 ML ONE (22:06)
[2021-04-20] MEDS ORDERED: METOCLOPRAMIDE 10 MG/2mL INJ ONE (22:06)
[2021-04-20] MEDS ORDERED: KETOROLAC 30 MG/ML INJ ONE (22:06)
[2021-04-20 22:17] LABS: Absolute Lymphocytes (CBC) 2.3 K/uL (0.7-4.9); Hematocrit 36.8 % (36.0-45.0); Lymphocytes % 29.5 % (15.3-44.8); MPV 7.4 fL (7.6-11.3); RBC Red Blood Cell Count 4.41 M/uL (3.86-4.86)
[2021-04-20 22:28] LABS: ALT/SGPT 22 U/L (12-78); AST/SGOT 11 U/L (15-37); Albumin 3.7 g/dL (3.4-5.0); Alkaline Phosphatase 37 U/L (45-117); BUN Blood Urea Nitrogen 12 mg/dL (7-18); Bicarbonate 28 mmol/L (21-32); Bilirubin Direct < 0.1 mg/dL (0-0.2); Bilirubin Total 0.2 mg/dL (0.2-1.0); Glucose Level 131 mg/dL (74-106); Lipase 85 U/L (73-393); Potassium 3.8 mmol/L (3.5-5.1); Protein, Total 8.1 g/dL (6.4-8.2); Sodium Level 143 mmol/L (136-145)
--- NOTE | 2021-04-20 22:54 | ER ---
Nurse's Notes [facility] Name: Judy Ivory Age: 30 yrs Sex: Female : 1990 Arrival Date: 04/20/2021 Time: 21:33 Bed 7 Private MD: Diagnosis: Headache;Other seizures Presentation: 04/20 21:40 Chief complaint: Patient states: seizure x2, absent seizures pt states she has them bs2 when her migraines get bad. pt takes depakote. Coronavirus screen: Client denies travel out of the [place] in the last 14 days. At this time, the client does not indicate any symptoms associated with coronavirus-19. Ebola Screen: Patient negative for fever greater than or equal to 101.5 degrees Fahrenheit, and additional compatible Ebola Virus Disease symptoms Patient denies exposure to infectious person. Patient denies travel to an Ebola-affected area in the 21 days before illness onset. No symptoms or risks identified at this time. Initial Sepsis Screen: Does the patient meet any 2 criteria? No. Patient's initial sepsis screen is negative. Does the patient have a suspected source of infection? No. Patient's initial sepsis screen is negative. Risk Assessment: Do you want to hurt yourself or someone else? Patient reports no desire to harm self or others. Onset of symptoms was April 20, 2021. 21:40 Method Of Arrival: EMS bs2 21:40 Acuity: NICOLETTE 3 bs2 Triage Assessment: 21:42 General: Appears in no apparent distress. comfortable, obese, well developed, well bs2 nourished, Behavior is calm, cooperative, appropriate for age. Pain: Complains of pain in face Pain currently is 8 out of 10 on a pain scale. EENT: No deficits noted. No signs and/or symptoms were reported regarding the EENT system. Neuro: No deficits noted. Cardiovascular: No deficits noted. Respiratory: No deficits noted. GI: No deficits noted. No signs and/or symptoms were reported involving the gastrointestinal system. : No deficits noted. No signs and/or symptoms were reported regarding the genitourinary system. Derm: No deficits noted. No signs and/or symptoms reported regarding the dermatologic system. Musculoskeletal: No deficits noted. No signs and/or symptoms reported regarding the musculoskeletal system. 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 Flu vaccine is not up to date. - Social history:: Smoking status: Patient reports the use of cigarette tobacco products, smokes one-half pack cigarettes per day, Patient/guardian denies using alcohol, street drugs, The patient lives with family. - Family history:: not pertinent. Screenin:44 Abuse screen: Denies threats or abuse. Denies injuries from another. Nutritional bs2 screening: No deficits noted. Tuberculosis screening: No symptoms or risk factors identified. Fall Risk None identified. Assessment: 21:44 General: Appears in no apparent distress. comfortable, obese, well developed, well bs2 nourished, Behavior is calm, cooperative, appropriate for age. Neuro: No deficits noted. Reports headache in entire. Cardiovascular: No deficits noted. Respiratory: No deficits noted. GI: No deficits noted. No signs and/or symptoms were reported involving the gastrointestinal system. : No deficits noted. No signs and/or symptoms were reported regarding the genitourinary system. EENT: No deficits noted. No signs and/or symptoms were reported regarding the EENT system. Derm: No deficits noted. No signs and/or symptoms reported regarding the dermatologic system. Musculoskeletal: No deficits noted. No signs and/or symptoms reported regarding the musculoskeletal system. Vital Signs: 21:40 BP 107 / 72; Pulse 93; Resp 16; Temp 97.8(O); Pulse Ox 96% on R/A; Weight 86.18 kg (R); bs2 Height 5 ft. 1 in. (154.94 cm) (R); Pain 8/10; 21:40 Body Mass Index 35.90 (86.18 kg, 154.94 cm) bs2 ED Course: 21:33 Patient arrived in ED. mw2 21:36 Lima Chinchilla MD is Attending Physician. ma2 21:42 Triage completed. bs2 21:42 Arm band placed on right wrist. bs2 21:44 Patient has correct armband on for positive identification. Bed in low position. Call bs2 light in reach. Side rails up X2. Seizure precautions initiated. door technician on. Pulse ox on. NIBP on. Noise minimized. Lights dimmed. 21:50 Inserted saline lock: 20 gauge in left antecubital area, using aseptic technique. ea 22:37 Basic Metabolic Panel Sent. ea 22:37 CBC with Diff Sent. ea 22:37 Hepatic Function Sent. ea 22:37 Lipase Sent. ea 22:47 Antonia Valladares, RN is Primary Nurse. ea 23:10 No provider procedures requiring assistance completed. IV discontinued, intact, ea bleeding controlled, No redness/swelling at site. Pressure dressing applied. Administered Medications: 22:00 Drug: NS 0.9% 1000 ml Route: IV; Rate: 1 bolus; Site: left antecubital; ea 23:11 Follow up: Response: No adverse reaction; IV Status: Completed infusion; IV Intake: ea 1000ml 22:00 Drug: Reglan (metoCLOPramide) 10 mg Route: IVP; Site: left antecubital; ea 22:30 Follow up: Response: No adverse reaction bs2 22:00 Drug: Ketorolac 30 mg Route: IVP; Site: left antecubital; ea 22:30 Follow up: Response: No adverse reaction bs2 22:47 Drug: Keppra (levETIRAcetam) 1000 mg Route: IV; Rate: calculated rate; Site: left ea antecubital; 23:11 Follow up: Response: No adverse reaction; IV Status: Completed infusion ea Intake: 23:11 IV: 1000ml; Total: 1000ml. ea Outcome: 22:53 Discharge ordered by . angelica 23:10 Discharged to home ambulatory, with family. ea 23:10 Condition: stable 23:10 Discharge instructions given to patient, Instructed on discharge instructions, follow up and referral plans. medication usage, Demonstrated understanding of instructions, follow-up care, medications, Prescriptions given X 2. 23:12 Patient left the ED. ea Signatures: Antonia Valladares, Lima Champion RN, ea, MD MD ma2 Olivia Otto2 Concepcion Duong bs2
--- NOTE | 2021-04-20 22:55 | EDPHYS ---
Physician Documentation [facility] Name: Judy Ivory Age: 30 yrs Sex: Female : 1990 Arrival Date: 04/20/2021 Time: 21:33 Bed 7 Private MD: ED Physician Lima Chinchilla HPI: 04/20 22:52 This 30 yrs old Female presents to ER via EMS with complaints of headache, ma2 seizure. 22:52 The patient presents after having a single isolated seizure. Seizure onset: just prior ma2 to arrival. Current symptoms: Currently, the patient is not experiencing any symptoms. The patient has experienced similar episodes in the past. 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 Flu vaccine is not up to date. - Social history:: Smoking status: Patient reports the use of cigarette tobacco products, smokes one-half pack cigarettes per day, Patient/guardian denies using alcohol, street drugs, The patient lives with family. - Family history:: not pertinent. ROS: 22:52 Constitutional: Negative for fever, chills, and weight loss. ma2 22:52 All other systems are negative. Exam: 22:52 Constitutional: This is a well developed, well nourished patient who is awake, alert, ma2 and in no acute distress. Head/Face: Normocephalic, atraumatic. Eyes: Pupils equal round and reactive to light, extra-ocular motions intact. Lids and lashes normal. Conjunctiva and sclera are non-icteric and not injected. Cornea within normal limits. Periorbital areas with no swelling, redness, or edema. ENT: Nares patent. No nasal discharge, no septal abnormalities noted. Tympanic membranes are normal and external auditory canals are clear. Oropharynx with no redness, swelling, or masses, exudates, or evidence of obstruction, uvula midline. Mucous membranes moist. Neck: Trachea midline, no thyromegaly or masses palpated, and no cervical lymphadenopathy. Supple, full range of motion without nuchal rigidity, or vertebral point tenderness. No Meningismus. Chest/axilla: Normal chest wall appearance and motion. Nontender with no deformity. No lesions are appreciated. Cardiovascular: Regular rate and rhythm with a normal S1 and S2. No gallops, murmurs, or rubs. Normal PMI, no JVD. No pulse deficits. Respiratory: Lungs have equal breath sounds bilaterally, clear to auscultation and percussion. No rales, rhonchi or wheezes noted. No increased work of breathing, no retractions or nasal flaring. Abdomen/GI: Soft, non-tender, with normal bowel sounds. No distension or tympany. No guarding or rebound. No evidence of tenderness throughout. Back: No spinal tenderness. No costovertebral tenderness. Full range of motion. Skin: Warm, dry with normal turgor. Normal color with no rashes, no lesions, and no evidence of cellulitis. MS/ Extremity: Pulses equal, no cyanosis. Neurovascular intact. Full, normal range of motion. Neuro: Awake and alert, GCS 15, oriented to person, place, time, and situation. Cranial nerves II-XII grossly intact. Motor strength 5/5 in all extremities. Sensory grossly intact. Cerebellar exam normal. Normal gait. Vital Signs: 21:40 BP 107 / 72; Pulse 93; Resp 16; Temp 97.8(O); Pulse Ox 96% on R/A; Weight 86.18 kg (R); bs2 Height 5 ft. 1 in. (154.94 cm) (R); Pain 8/10; 21:40 Body Mass Index 35.90 (86.18 kg, 154.94 cm) bs2 MDM: 21:36 Patient medically screened. ma2 22:52 Differential diagnosis: seizure, migraine headache vs tension headache . Data reviewed: ma2 vital signs, nurses notes. Counseling: I had a detailed discussion with the patient and/or guardian regarding: the historical points, exam findings, and any diagnostic results supporting the discharge/admit diagnosis, the presence of at least one elevated blood pressure reading (>120/80) during this emergency department visit, the need for outpatient follow up. Response to treatment: the patient's symptoms have markedly improved after treatment. 04/20 21:35 Order name: Basic Metabolic Panel [facility] 04/20 21:35 Order name: CBC with Diff [facility] 04/20 21:35 Order name: Hepatic Function ar2 04/20 21:35 Order name: Lipase [facility] 04/20 21:36 Order name: Basic Metabolic Panel; Complete Time: 22:54 EDMS 04/20 21:36 Order name: CBC with Automated Diff; Complete Time: 22:25 EDMS 04/20 21:35 Order name: IV Saline Lock; Complete Time: 22:00 [facility] 04/20 21:35 Order name: Labs collected and sent; Complete Time: 22:37 [facility] 04/20 21:36 Order name: Liver (Hepatic) Function; Complete Time: 22:54 EDMS 04/20 21:36 Order name: Lipase; Complete Time: 22:54 EDMS Administered Medications: 22:00 Drug: NS 0.9% 1000 ml Route: IV; Rate: 1 bolus; Site: left antecubital; ea 23:11 Follow up: Response: No adverse reaction; IV Status: Completed infusion; IV Intake: ea 1000ml 22:00 Drug: Reglan (metoCLOPramide) 10 mg Route: IVP; Site: left antecubital; ea 22:30 Follow up: Response: No adverse reaction bs2 22:00 Drug: Ketorolac 30 mg Route: IVP; Site: left antecubital; ea 22:30 Follow up: Response: No adverse reaction bs2 22:47 Drug: Keppra (levETIRAcetam) 1000 mg Route: IV; Rate: calculated rate; Site: left ea antecubital; 23:11 Follow up: Response: No adverse reaction; IV Status: Completed infusion ea Disposition Summary: 04/20/21 22:53 Discharge Ordered Location: Home ma2 Condition: Stable ma2 Diagnosis - Headache ma2 - Other seizures ma2 Followup: ma2 - With: Private Physician - When: Tomorrow - Reason: Continuance of care Discharge Instructions: - Discharge Summary Sheet ma2 - Epilepsy ma2 - Migraine Headache ma2 Forms: - Medication Reconciliation Form ma2 - Thank You Letter ma2 - Antibiotic Education ma2 - Prescription Opioid Use ma2 Prescriptions: - Keppra 500 mg Oral Tablet - take 1 tablet by ORAL route every 12 hours; 20 tablet; Refills: 0, Product ma2 Selection Permitted - Reglan 10 mg Oral Tablet - take 1 tablet by ORAL route every 6 hours . take 30 minutes before meals and at ma2 bedtime; 100 tablet; Refills: 0, Product Selection Permitted Signatures: Dispatcher [employer] Antonia Ruiz RN RN ea Alzahri, Mohammad, MD MD ar2 Concepcion Duong 2
[2021-04-20] MEDS ORDERED: LEVETIRACETAM 500 MG/5 ML VIAL IV ONE (22:56)
[2021-04-20] MEDS ORDERED: NA CHLORIDE 0.9% 100 ML ONE (23:02)
[2021-04-20 23:19] VITALS: BP 107/72; TEMP 97.8; O2SAT 96
== END 2021-04-20 23:12 | disposition home or self-care (01) ==
LOC: ER 21:19
DX: G40.A09 Absence epileptic syndrome, not intractable, without status epilepticus (principal); F17.210 Nicotine dependence, cigarettes, uncomplicated; Z88.5 Allergy status to narcotic agent
CPT/HCPCS: 96365; 96361; 85025; 80048; 36415; 80076; 83690; 96375; 99284; J2765; J1953; J7030

== ENCOUNTER 2021-09-22 18:25 | Emergency (ER) | payer OTHER ==
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
[2021-09-22] MEDS ORDERED: KETOROLAC 30 MG/ML INJ ONE (20:25)
[2021-09-22] MEDS ORDERED: METOCLOPRAMIDE 10 MG/2mL INJ ONE (20:25)
[2021-09-22] MEDS ORDERED: NA CHLORIDE 0.9% 1,000 ML ONE (20:25)
--- NOTE | 2021-09-22 22:00 | EDPHYS ---
Physician Documentation [facility] Name: Judy Ivory Age: 30 yrs Sex: Female : 1990 Arrival Date: 09/22/2021 Time: 18:27 Bed 13 Private MD: ED Physician Yossi Aguilar HPI: 09/22 20:32 This 30 yrs old Female presents to ER via Ambulatory with complaints of Headache, mh7 Seizure. 20:32 The patient complains of pain to the Right side of head. The patient describes the mh7 headache as intermittent, throbbing, waxing and waning. Onset: The symptoms/episode began/occurred yesterday. Associated signs and symptoms: Pertinent positives: nausea, Photophobia Pertinent negatives: altered mental status, dizziness, fever, malaise, nausea, neck stiffness, paresthesias, rash, sinus congestion, sinus tenderness, vision changes, vision loss, vomiting, weakness, vertigo. Severity of symptoms: At its worst the pain was moderate, last night, in the emergency department the pain is unchanged. Headache History: The patient has had previous headaches and this one is similar to previous episodes. The symptoms are alleviated by nothing. the symptoms are aggravated by lights, movement, noise, stress. The patient has experienced similar episodes in the past, multiple times. Historical: - PMHx: 19:35 Seizure; da3 - Immunization history:: Client reports having NOT received the Covid vaccine. ROS: 20:32 Constitutional: Negative for fever, chills, and weight loss, Eyes: Negative for injury, mh7 pain, redness, and discharge, ENT: Negative for injury, pain, and discharge, Neck: Negative for injury, pain, and swelling, Cardiovascular: Negative for chest pain, palpitations, and edema, Respiratory: Negative for shortness of breath, cough, wheezing, and pleuritic chest pain, Back: Negative for injury and pain, : Negative for injury, bleeding, discharge, and swelling, MS/Extremity: Negative for injury and deformity, Skin: Negative for injury, rash, and discoloration, Psych: Negative for depression, anxiety, suicide ideation, homicidal ideation, and hallucinations. 20:32 Allergy/Immunology: Negative for hives, rash, and allergies, Endocrine: Negative for neck swelling, polydipsia, polyuria, polyphagia, and marked weight changes, Hematologic/Lymphatic: Negative for swollen nodes, abnormal bleeding, and unusual bruising. 20:32 Neuro: Negative for altered mental status, dizziness, gait disturbance, hearing loss, loss of consciousness, numbness, seizure activity, speech changes, syncope, near syncope, tingling, tinnitus, tremor, visual changes, weakness. Exam: 20:32 Eyes: Pupils equal round and reactive to light, extra-ocular motions intact. Lids and mh7 lashes normal. Conjunctiva and sclera are non-icteric and not injected. Cornea within normal limits. Periorbital areas with no swelling, redness, or edema. ENT: Nares patent. No nasal discharge, no septal abnormalities noted. Tympanic membranes are normal and external auditory canals are clear. Oropharynx with no redness, swelling, or masses, exudates, or evidence of obstruction, uvula midline. Mucous membranes moist. Neck: Trachea midline, no thyromegaly or masses palpated, and no cervical lymphadenopathy. Supple, full range of motion without nuchal rigidity, or vertebral point tenderness. No Meningismus. Chest/axilla: Normal chest wall appearance and motion. Nontender with no deformity. No lesions are appreciated. Cardiovascular: Regular rate and rhythm with a normal S1 and S2. No gallops, murmurs, or rubs. Normal PMI, no JVD. No pulse deficits. Respiratory: Lungs have equal breath sounds bilaterally, clear to auscultation and percussion. No rales, rhonchi or wheezes noted. No increased work of breathing, no retractions or nasal flaring. Abdomen/GI: Soft, non-tender, with normal bowel sounds. No distension or tympany. No guarding or rebound. No evidence of tenderness throughout. Back: No spinal tenderness. No costovertebral tenderness. Full range of motion. Skin: Warm, dry with normal turgor. Normal color with no rashes, no lesions, and no evidence of cellulitis. MS/ Extremity: Pulses equal, no cyanosis. Neurovascular intact. Full, normal range of motion. Neuro: Awake and alert, GCS 15, oriented to person, place, time, and situation. Cranial nerves II-XII grossly intact. Motor strength 5/5 in all extremities. Sensory grossly intact. Cerebellar exam normal. Normal gait. Psych: Awake, alert, with orientation to person, place and time. Behavior, mood, and affect are within normal limits. 20:32 Constitutional: The patient appears in no acute distress, alert, awake, uncomfortable. 20:32 Head/face: Noted is tenderness, that is moderate, of the Right scalp. Vital Signs: 19:32 BP 135 / 85; Pulse 99; Resp 22; Temp 98.4; da3 19:32 BP 135 / 85; Pulse 99; Resp 22; Temp 98.4; Pulse Ox 100% on R/A; Weight 61.23 kg; da3 Height 5 ft. 1 in. (154.94 cm); 19:32 Body Mass Index 25.51 (61.23 kg, 154.94 cm) da3 Jesusita Coma Score: 21:58 Eye Response: spontaneous(4). Verbal Response: oriented(5). Motor Response: obeys [facility] commands(6). Total: 15. MDM: 21:58 Differential diagnosis: cluster headache, migraine, tension headache. Data reviewed: [facility] vital signs, nurses notes, old medical records. Data interpreted: Pulse oximetry: on room air is 100 %. Interpretation: normal. Counseling: I had a detailed discussion with the patient and/or guardian regarding: the historical points, exam findings, and any diagnostic results supporting the discharge/admit diagnosis, the need for outpatient follow up, a neurologist, to return to the emergency department if symptoms worsen or persist or if there are any questions or concerns that arise at home. Response to treatment: the patient's symptoms have resolved after treatment, the patient's blood pressure is in an acceptable range, mental status has returned to baseline, the patient no longer shows bradycardia, the patient is not short of breath, the patient is not tachycardic, the patient's pain is gone, the patient's temperature has normalized. Refusal of service: The patient/guardian displays adequate decision making capability and despite a detailed discussion of alternatives, benefits, risks, and consequences refuses: all lab tests. 21:[address] [facility] 09/22 20:14 Order name: UDS [facility] 09/22 20:14 Order name: Urine Dipstick-Ancillary (obtain specimen) [facility] 09/22 20:14 Order name: Urine Test (obtain specimen) [facility] 09/22 20:14 Order name: Saline Lock; Complete Time: 20:24 [facility] Administered Medications: 20:25 Drug: NS 0.9% 1000 ml Route: IV; Rate: 1000 ml; Site: right antecubital; [facility] 20:25 Drug: Reglan (metoCLOPramide) 10 mg Route: IVP; Site: right antecubital; 5 20:25 Drug: Ketorolac 30 mg Route: IVP; Site: right antecubital; [facility] Disposition Summary: 09/22/21 21:59 Discharge Ordered Location: Home [facility] Problem: an acute exacerbation [facility] Symptoms: have improved [facility] Condition: Stable [facility] Diagnosis - Headache [facility] Followup: [facility] - With: Private Physician - When: 1 - 2 days - Reason: Worsening of condition, Recheck today's complaints, Continuance of care, Re-evaluation by your physician Followup: [facility] - With: Simba Ko MD - When: 1 - 2 days - Reason: Worsening of condition, Recheck today's complaints Discharge Instructions: - Discharge Summary Sheet [facility] - Migraine Headache, [id number] [facility] Forms: - Medication Reconciliation Form [facility] - Thank You Letter [facility] - Antibiotic Education [facility] - Prescription Opioid Use [facility] Signatures: Dispatcher [employer] EDYossi Andrews MD MD 7 Newton James RN RN da3 Leanna Dean RN RN jh5 Corrections: (The following items were deleted from the chart) 19:36 19:35 PMHx: ectopic ; da3 da3 19:36 19:35 PMHx: Depression; da3 da3 19:36 19:35 PMHx: Migraines; da3 da3 19:36 19:35 PSHx: tubal; da3 da3
--- NOTE | 2021-09-22 22:00 | ER ---
Nurse's Notes [facility] Name: Judy Ivory Age: 30 yrs Sex: Female : 1990 Arrival Date: 09/22/2021 Time: 18:27 Bed 13 Private MD: Diagnosis: Headache Presentation: 09/22 19:31 Chief complaint: Patient states: siezure and AZAR. da3 19:31 Method Of Arrival: Ambulatory da3 19:32 Coronavirus screen: Vaccine status: Patient reports being unvaccinated. Client denies da3 travel out of the [place] in the last 14 days. Ebola Screen: No symptoms or risks identified at this time. Risk Assessment: Do you want to hurt yourself or someone else? Patient reports no desire to harm self or others. 19:32 Acuity: NICOLETTE 3 da3 Triage Assessment: 19:36 Headache History: The patient has had previous headaches and this one is similar to da3 previous episodes. Headache History: The patient has had previous headaches. General: Appears distressed, uncomfortable. Pain: Complains of pain in head Pain currently is 10 out of 10 on a pain scale. Historical: - PMHx: 19:35 Seizure; da3 - Immunization history:: Client reports having NOT received the Covid vaccine. Vital Signs: 19:32 BP 135 / 85; Pulse 99; Resp 22; Temp 98.4; da3 19:32 BP 135 / 85; Pulse 99; Resp 22; Temp 98.4; Pulse Ox 100% on R/A; Weight 61.23 kg; da3 Height 5 ft. 1 in. (154.94 cm); 19:32 Body Mass Index 25.51 (61.23 kg, 154.94 cm) da3 Jesusita Coma Score: 21:58 Eye Response: spontaneous(4). Verbal Response: oriented(5). Motor Response: obeys mh7 commands(6). Total: 15. ED Course: 18:27 Patient arrived in ED. ds1 19:34 Triage completed. da3 19:53 Yossi Aguilar MD is Attending Physician. mh7 21:59 Simba Ko MD is Referral Physician. mh7 Administered Medications: 20:25 Drug: NS 0.9% 1000 ml Route: IV; Rate: 1000 ml; Site: right antecubital; jh5 20:25 Drug: Reglan (metoCLOPramide) 10 mg Route: IVP; Site: right antecubital; 5 20:25 Drug: Ketorolac 30 mg Route: IVP; Site: right antecubital; [facility] Outcome: 21:59 Discharge ordered by . chu 22:38 Patient left the ED. ld1 Signatures: Gina Jane ds1 Yossi Aguilar MD MD 7 Nesha Moe RN RN 1 Newton James RN RN 3 Leanna Dean RN RN 5 Corrections: (The following items were deleted from the chart) 19:36 19:35 PMHx: ectopic ; da3 da3 19:36 19:35 PMHx: Depression; da3 da3 19:36 19:35 PMHx: Migraines; da3 da3 19:36 19:35 PSHx: tubal; da3 da3
[2021-09-22 22:58] VITALS: BP 135/85; TEMP 98.4; O2SAT 100
== END 2021-09-22 22:38 | disposition home or self-care (01) ==
LOC: ER 18:25
DX: R51.9 Headache, unspecified (principal)
CPT/HCPCS: 96375; 96374; 99283; J2765; J7030

== ENCOUNTER 2022-03-13 03:30 | Emergency (ER) | payer OTHER ==
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
[2022-03-13 04:58] LABS: Absolute Lymphocytes (CBC) 3.1 K/uL (0.7-4.9); Hematocrit 35.1 % (36.0-45.0); Lymphocytes % 36.7 % (15.3-44.8); MPV 6.7 fL (7.6-11.3); RBC Red Blood Cell Count 4.13 M/uL (3.86-4.86)
[2022-03-13 05:11] LABS: Potassium 3.1 mmol/L (3.5-5.1)
[2022-03-13 05:13] LABS: Urine Blood 3+ (Negative); Urine Glucose Negative (Negative); Urine Protein 2+ (Negative); Urine Specific Gravity >=1.030 (1.005-1.030); Urine pH 5.5 (5.0-7.0)
[2022-03-13] MEDS ORDERED: NA CHLORIDE 0.9% 1,000 ML ONE (05:23)
[2022-03-13] MEDS ORDERED: CEPHALEXIN 250 MG CAP ONE (08:20)
[2022-03-13] MEDS ORDERED: POTASSIUM 25 MEQ EFFERV TAB ONE (08:20)
--- NOTE | 2022-03-13 08:20 | RAD REPORT ---
EXAM DESCRIPTION: US - Transvaginal Study Probe - 03/13/2022 6:44 am CLINICAL HISTORY: Pelvic pain COMPARISON: none FINDINGS: The uterus measures 8 x 6 x 5 cm. A fibroid is not seen. The endometrial stripe measures 4 millimeters. A gestational sac is not seen. Nabothian cysts are present within the cervix. The ovaries are normal in size and echotexture. The right and left adnexa unremarkable Small amount of free fluid IMPRESSION: Gestational sac is not visualized within the endometrium. This may indicate an an aborti on. An IUP in which the gestational sac is not seen secondary to an early gestation is another consid eration. An ectopic can also result in this appearance. This all should be correlated clinically and with serial beta HCG levels. Follow up ultrasound in 1 w [place]alton may be helpful
[2022-03-13 08:50] LABS: Urine RBC <5 /HPF (NONE SEEN)
--- NOTE | 2022-03-13 08:50 | EDPHYS ---
Physician Documentation [facility] Name: Judy Ivory Age: 31 yrs Sex: Female : 1990 Arrival Date: 03/13/2022 Time: 03:34 Bed 20 Private MD: ED Physician Parviz Mohamud HPI: 03/13 04:45 This 31 yrs old Female presents to ER via Ambulatory with complaints of Vaginal mh7 Bleeding. 04:45 The patient presents with vaginal bleeding that is moderate. Onset: The mh7 symptoms/episode began/occurred 4 day(s) ago. Modifying factors: The symptoms are alleviated by nothing, the symptoms are aggravated by nothing. Associated signs and symptoms: Pertinent positives: cramping, Pertinent negatives: constipation, diarrhea, dyspareunia, dysuria, fever, hematuria, nausea, urinary frequency, vaginal discharge, vomiting. Severity of symptoms: At their worst the symptoms were moderate, 3 day(s) ago, in the emergency department the symptoms are unchanged. 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 Flu vaccine is up to date. - Social history:: Smoking status: Patient reports the use of cigarette tobacco products. ROS: 04:45 Constitutional: Negative for fever, chills, and weight loss, Eyes: Negative for injury, mh7 pain, redness, and discharge, ENT: Negative for injury, pain, and discharge, Neck: Negative for injury, pain, and swelling, Cardiovascular: Negative for chest pain, palpitations, and edema, Respiratory: Negative for shortness of breath, cough, wheezing, and pleuritic chest pain, Abdomen/GI: Negative for abdominal pain, nausea, vomiting, diarrhea, and constipation, Back: Negative for injury and pain, MS/Extremity: Negative for injury and deformity, Skin: Negative for injury, rash, and discoloration, Neuro: Negative for headache, weakness, numbness, tingling, and seizure, Psych: Negative for depression, anxiety, suicide ideation, homicidal ideation, and hallucinations, Allergy/Immunology: Negative for hives, rash, and allergies, Endocrine: Negative for neck swelling, polydipsia, polyuria, polyphagia, and marked weight changes, Hematologic/Lymphatic: Negative for swollen nodes, abnormal bleeding, and unusual bruising. Exam: 04:45 Constitutional: This is a well developed, well nourished patient who is awake, alert, mh7 and in no acute distress. Head/Face: Normocephalic, atraumatic. Eyes: Pupils equal round and reactive to light, extra-ocular motions intact. Lids and lashes normal. Conjunctiva and sclera are non-icteric and not injected. Cornea within normal limits. Periorbital areas with no swelling, redness, or edema. Neck: Trachea midline, no thyromegaly or masses palpated, and no cervical lymphadenopathy. Supple, full range of motion without nuchal rigidity, or vertebral point tenderness. No Meningismus. Chest/axilla: Normal chest wall appearance and motion. Nontender with no deformity. No lesions are appreciated. Cardiovascular: Regular rate and rhythm with a normal S1 and S2. No gallops, murmurs, or rubs. Normal PMI, no JVD. No pulse deficits. Respiratory: Lungs have equal breath sounds bilaterally, clear to auscultation and percussion. No rales, rhonchi or wheezes noted. No increased work of breathing, no retractions or nasal flaring. Abdomen/GI: Soft, non-tender, with normal bowel sounds. No distension or tympany. No guarding or rebound. No evidence of tenderness throughout. Back: No spinal tenderness. No costovertebral tenderness. Full range of motion. Skin: Warm, dry with normal turgor. Normal color with no rashes, no lesions, and no evidence of cellulitis. MS/ Extremity: Pulses equal, no cyanosis. Neurovascular intact. Full, normal range of motion. Neuro: Awake and alert, GCS 15, oriented to person, place, time, and situation. Cranial nerves II-XII grossly intact. Motor strength 5/5 in all extremities. Sensory grossly intact. Cerebellar exam normal. Normal gait. Psych: Awake, alert, with orientation to person, place and time. Behavior, mood, and affect are within normal limits. Vital Signs: 04:08 BP 111 / 71; Pulse 106; Resp 16; Temp 98.4(O); Pulse Ox 99% ; Weight 63.5 kg; Height 5 vc1 ft. 1 in. (154.94 cm); 07:38 Pulse 100; Resp 16 S; Pulse Ox 99% on R/A; jd3 08:58 BP 114 / 75; Pulse 96; Resp 16; Pulse Ox 100% on R/A; mb7 04:08 Body Mass Index 26.45 (63.50 kg, 154.94 cm) vc1 MDM: 08:49 Patient medically screened. kdr 09:36 Data reviewed: vital signs, nurses notes, lab test result(s), radiologic studies. kdr Counseling: I had a detailed discussion with the patient and/or guardian regarding: the historical points, exam findings, and any diagnostic results supporting the discharge/admit diagnosis, lab results, radiology results. 03/13 04:28 Order name: Abo/rh Typing; Complete Time: 06:29 [facility] 03/13 04:28 Order name: Basic Metabolic Panel; Complete Time: 06:29 [facility] 03/13 04:28 Order name: CBC with Diff; Complete Time: 06:29 [facility] 03/13 05:11 Order name: Quantitative Hcg; Complete Time: 06:29 [facility] 03/13 05:13 Order name: Urine Dipstick-Ancillary; Complete Time: 06:29 [facility] 03/13 06:46 Order name: Transvaginal Study Probe; Complete Time: 08:38 [facility] 03/13 07:46 Order name: Urine Microscopic Only [facility] 03/13 07:46 Order name: Urine Culture [facility] 03/13 04:28 Order name: IV Saline Lock; Complete Time: 04:48 [facility] 03/13 04:28 Order name: Labs collected and sent; Complete Time: 04:48 [facility] 03/13 04:28 Order name: NPO; Complete Time: 05:16 [facility] 03/13 04:28 Order name: Urine Dipstick-Ancillary (obtain specimen); Complete Time: 05:11 [facility] 03/13 04:28 Order name: Urine Test (obtain specimen); Complete Time: 05:11 7 Administered Medications: 05:47 Drug: NS 0.9% 1000 ml Route: IV; Rate: 1000 ml; Site: right antecubital; vc1 08:22 Follow up: Response: No adverse reaction; IV Status: Completed infusion jd3 08:22 Drug: Potassium Effervescent Tablet 50 mEq Route: PO; jd3 09:06 Follow up: Response: No adverse reaction jd3 08:22 Drug: KeFLEX (cephalexin) 500 mg Route: PO; jd3 09:06 Follow up: Response: No adverse reaction jd3 Disposition Summary: 03/13/22 08:49 Discharge Ordered Location: Home kdr Problem: new kdr Symptoms: have improved kdr Condition: Stable kdr Diagnosis - Threatened kdr Followup: kdr - With: Private Physician - When: 48 Hours - Reason: If symptoms return, Further diagnostic work-up, Recheck today's complaints, Continuance of care, Repeat Beta-HCG (48 Hours), Re-evaluation by your physician Discharge Instructions: - Discharge Summary Sheet kdr - Threatened Miscarriage kdr - Vaginal Bleeding During , First Trimester kdr Forms: - Medication Reconciliation Form kdr - Thank You Letter kdr Signatures: Dispatcher [employer] Parviz Sanchez MD MD kdr Fabrice Sanderson RN RN jd3 Yossi Aguilar MD MD mh7 Shavon Rutherford RN RN vc1 Corrections: (The following items were deleted from the chart) 05:16 05:10 QUANTITATIVE HCG+C.LAB.BRZ ordered. EDMS EDMS 06:45 05:11 Transvaginal Ob+US.RAD.BRZ ordered. EDMS EDMS
--- NOTE | 2022-03-13 08:50 | ER ---
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 My and I have been trying to get and I haven't' had a period since December 21. The other day I started but only bled for one day which is not normal for me. Then the other day I buckled from being in so much pain then I started to bleed heavily. I am just afraid of having another ectopic .". Coronavirus screen: Vaccine status: Patient reports being unvaccinated. At this time, the client does not indicate any symptoms associated with coronavirus-19. Ebola Screen: No symptoms or risks identified at this time. Initial Sepsis Screen: Does the patient meet any 2 criteria? HR > 90 bpm. Does the patient have a suspected source of infection? No. Patient's initial sepsis screen is negative. Risk Assessment: Do you want to hurt yourself or someone else? Patient reports no desire to harm self or others. Onset of symptoms is unknown. 04:08 Method Of Arrival: Ambulatory vc1 04:08 Acuity: NICOLETTE 3 vc1 Triage Assessment: 04:15 General: Appears in no apparent distress. Behavior is calm, cooperative, appropriate vc1 for age. Pain: Denies pain. : Reports vaginal bleeding that is bright red, heavy flow. 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 Flu vaccine is up to date. - Social history:: Smoking status: Patient reports the use of cigarette tobacco products. Screenin:15 Abuse screen: Denies threats or abuse. Nutritional screening: No deficits noted. vc1 Tuberculosis screening: No symptoms or risk factors identified. Fall Risk None identified. Assessment: 04:15 : vc1 07:37 General: Appears in no apparent distress. comfortable, Behavior is calm, cooperative, jd3 appropriate for age. Pain: Complains of pain in abdomen Quality of pain is described as aching. Neuro: Manzanares Agitation-Sedation Scale (RASS): 0 - Alert and Calm Level of Consciousness is awake, alert, obeys commands, Oriented to person, place, time, situation. Cardiovascular: Capillary refill < 3 seconds Patient's skin is warm and dry. Respiratory: Airway is patent Respiratory effort is even, unlabored, Respiratory pattern is regular, symmetrical, Denies cough, shortness of breath. GI: No signs and/or symptoms were reported involving the gastrointestinal system. : Reports vaginal bleeding that is heavy flow. EENT: No signs and/or symptoms were reported regarding the EENT system. Derm: Skin is intact, Skin is dry, Skin is normal, Skin temperature is warm. Musculoskeletal: Circulation, motion, and sensation intact. Range of motion: intact in all extremities. 09:04 Reassessment: Patient appears in no apparent distress at this time. Patient and/or jd3 family updated on plan of care and expected duration. Pain level reassessed. Patient is alert, oriented x 3, equal unlabored respirations, skin warm/dry/pink. verbal reassurance given. pt reported understanding of discharge instructions. Vital Signs: 04:08 BP 111 / 71; Pulse 106; Resp 16; Temp 98.4(O); Pulse Ox 99% ; Weight 63.5 kg; Height 5 vc1 ft. 1 in. (154.94 cm); 07:38 Pulse 100; Resp 16 S; Pulse Ox 99% on R/A; jd3 08:58 BP 114 / 75; Pulse 96; Resp 16; Pulse Ox 100% on R/A; mb7 04:08 Body Mass Index 26.45 (63.50 kg, 154.94 cm) vc1 ED Course: 03:34 Patient arrived in ED. bp1 03:57 Shavon Rutherford, RN is Primary Nurse. vc1 04:14 Triage completed. vc1 04:15 Arm band placed on right wrist. vc1 04:15 Patient has correct armband on for positive identification. Bed in low position. Call vc1 light in reach. NIBP on. 04:27 Yossi Aguilar MD is Attending Physician. [facility] 04:49 Inserted saline lock: 22 gauge in right antecubital area, using aseptic technique. ds4 Blood collected. 06:46 Transvaginal Study Probe In Process Unspecified. EDMS 07:58 Attending Physician role handed off by Yossi Aguilar MD [facility] 07:58 Parviz Mohamud MD is Attending Physician. kdr 08:07 Urine Microscopic Only Sent. mb7 08:07 Urine Culture Sent. mb7 08:20 Urine Culture Sent. mb7 08:20 Urine Microscopic Only Sent. mb7 08:26 Primary Nurse role handed off by Shavon Rutherford RN j 08:26 Fabrice Sanderson RN is Primary Nurse. jd3 09:05 No provider procedures requiring assistance completed. IV discontinued, intact, jd3 bleeding controlled, No redness/swelling at site. Pressure dressing applied. Administered Medications: 05:47 Drug: NS 0.9% 1000 ml Route: IV; Rate: 1000 ml; Site: right antecubital; vc1 08:22 Follow up: Response: No adverse reaction; IV Status: Completed infusion jd3 08:22 Drug: Potassium Effervescent Tablet 50 mEq Route: PO; jd3 09:06 Follow up: Response: No adverse reaction jd3 08:22 Drug: KeFLEX (cephalexin) 500 mg Route: PO; jd3 09:06 Follow up: Response: No adverse reaction jd3 Medication: 07:38 VIS not applicable for this client. jd3 Outcome: 08:49 Discharge ordered by . kdr 09:05 Discharged to home ambulatory, with family. jd3 09:05 Condition: stable 09:05 Discharge instructions given to patient, Instructed on discharge instructions, follow up and referral plans. Demonstrated understanding of instructions, follow-up care. 09:07 Patient left the ED. jd3 Signatures: Dispatcher [employer] EDAK aPrviz Mohamud MD MD kdr Cezar Novoa ds4 Fabrice Sanderson RN RN jd3 Cayla Correa Maurice, MD MD [facility] Elsa Ardon 7 Shavon Rutherford, PEEWEE RN vc1 Corrections: (The following items were deleted from the chart) 06:45 06:44 In radiology for Transvaginal Ob+US.RAD.ANN. EDMS EDMS
[2022-03-13 08:51] LABS: Urine Bacteria 20-50 /HPF (<20)
[2022-03-13 08:53] LABS: Calcium Oxalate Crystals- Ur FEW (NONE SEEN); Urine Amorphous Sediment 3+ /HPF (NONE SEEN)
[2022-03-13 09:16] VITALS: TEMP 98.4
[2022-03-13 09:26] VITALS: BP 114/75; O2SAT 100
== END 2022-03-13 09:07 | disposition home or self-care (01) ==
LOC: ER 03:30
DX: O20.0 Threatened abortion (principal)
CPT/HCPCS: 96361; 87088; 85025; 87086; 80048; 36415; 86900; 86901; 84702; 87077; 87186; 76830; 96360; 99284; J7030; 81003; 81015

== ENCOUNTER 2022-08-24 11:12 | Emergency (ER) | payer OTHER ==
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
[2022-08-24] MEDS ORDERED: LEVETIRACETAM 500 MG/5 ML VIAL IV ONE (11:59)
[2022-08-24] MEDS ORDERED: METOCLOPRAMIDE 10 MG/2mL INJ ONE (11:59)
[2022-08-24] MEDS ORDERED: NA CHLORIDE 0.9% 1,000 ML ONE (11:59)
[2022-08-24] MEDS ORDERED: NA CHLORIDE 0.9% 100 ML IV ONE (11:59)
[2022-08-24] MEDS ORDERED: KETOROLAC 30 MG/ML INJ ONE (11:59)
[2022-08-24] MEDS ORDERED: ONDANSETRON 4 MG/2 ML VIAL ONE (11:59)
[2022-08-24 12:13] LABS: Urine Blood 2+ (Negative); Urine Glucose Negative (Negative); Urine Protein Negative (Negative); Urine Specific Gravity >=1.030 (1.005-1.030)
--- NOTE | 2022-08-24 13:19 | ER ---
Nurse's Notes [facility] Name: Judy Ivory Age: 31 yrs Sex: Female : 1990 Arrival Date: 08/24/2022 Time: 11:15 Bed 17 Private MD: Diagnosis: Migraine without aura, not intractable;Epileptic seizures related to external causes, not intractable;UTI/ Urinary tract infection, site not specified Presentation: 08/24 11:45 Chief complaint: Patient states: hx of petite absent seizures; i had 2 yesterday and 3 jh5 today. Coronavirus screen: Vaccine status: Patient reports being unvaccinated. Client denies travel out of the [place] in the last 14 days. Ebola Screen: Patient negative for fever greater than or equal to 101.5 degrees Fahrenheit, and additional compatible Ebola Virus Disease symptoms Patient denies exposure to infectious person. Patient denies travel to an Ebola-affected area in the 21 days before illness onset. Initial Sepsis Screen: Does the patient meet any 2 criteria? No. Patient's initial sepsis screen is negative. Does the patient have a suspected source of infection? No. Patient's initial sepsis screen is negative. Risk Assessment: Do you want to hurt yourself or someone else? Patient reports no desire to harm self or others. 11:45 Method Of Arrival: Ambulatory [facility] 11:45 Acuity: NICOLETTE 3 jh5 12:00 Onset of symptoms is unknown. 8 Triage Assessment: 11:47 General: Appears in no apparent distress. comfortable, slender, Behavior is calm, jh5 cooperative, appropriate for age. Pain: Denies pain. Neuro: No deficits noted. 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 - Social history:: Smoking status: Patient reports the use of cigarette tobacco products, smokes one-half pack cigarettes per day. - Family history:: not pertinent. - Hospitalizations: : No recent hospitalization is reported. Screenin:00 Abuse screen: Denies threats or abuse. Denies injuries from another. Nutritional mb8 screening: No deficits noted. Tuberculosis screening: No symptoms or risk factors identified. Fall Risk No fall in past 12 months (0 pts). Secondary diagnosis (15 points) IV access (20 points). Ambulatory Aid- None/Bed Rest/Nurse Assist (0 pts). Gait- Normal/Bed Rest/Wheelchair (0 pts) Mental Status- Oriented to own ability (0 pts). [place] Fall Scale indicates Low Risk Score (25-44 pts). Assessment: 12:00 Neuro: Level of Consciousness is awake, alert, obeys commands, Oriented to person, mb8 place, time, situation, Appropriate for age [employer] S[employer] Manager are equal bilaterally Moves all extremities. Full function Gait is steady, Speech is normal, Facial symmetry appears normal, Pupils are PERRLA, Pupil Size: 3 Intact. Neuro: Reports headache. Respiratory: No deficits noted. Vital Signs: 11:45 BP 122 / 85; Pulse 82; Resp 18; Temp 98.6; Pulse Ox 100% ; Weight 61.23 kg; Height 5 jh5 ft. 1 in. (154.94 cm); Pain 0/10; 11:45 Body Mass Index 25.51 (61.23 kg, 154.94 cm) jh5 [place] Coma Score: 11:47 Eye Response: spontaneous(4). Verbal Response: oriented(5). Motor Response: obeys 5 commands(6). Total: 15. ED Course: 11:15 Patient arrived in ED. am2 11:36 Galo Jolley MD is Attending Physician. rn 11:40 Sim Ziegler RN is Primary Nurse. mb8 11:47 Triage completed. jh5 11:47 Arm band placed on right wrist. jh5 12:00 Inserted saline lock: 20 gauge in right antecubital area, using aseptic technique. mb8 12:17 Patient has correct armband on for positive identification. Placed in gown. Bed in low mb8 position. Call light in reach. Side rails up X2. Client placed on continuous cardiac and pulse oximetry monitoring. NIBP monitoring applied. 12:17 Seizure precautions initiated. mb8 12:17 No provider procedures requiring assistance completed. mb8 13:19 Simba Ko MD is Referral Physician. rn 13:25 IV discontinued, intact, bleeding controlled, No redness/swelling at site. Pressure mb8 dressing applied. Administered Medications: 12:06 Drug: NS 0.9% 1000 ml Route: IV; Rate: 1000 ml; Site: right antecubital; mb8 13:15 Follow up: Response: No adverse reaction; IV Status: Completed infusion mb8 12:06 Drug: Reglan (metoCLOPramide) 10 mg Route: IVP; Site: right antecubital; mb8 13:28 Follow up: Response: No adverse reaction; Pain is decreased; Nausea is decreased mb8 12:09 Drug: Ketorolac 30 mg Route: IVP; Site: right antecubital; mb8 13:28 Follow up: Response: No adverse reaction; Pain is decreased mb8 12:10 Drug: Zofran (Ondansetron) 4 mg Route: IVP; Site: right antecubital; mb8 13:28 Follow up: Response: No adverse reaction; Nausea is decreased mb8 12:12 Drug: Keppra (levETIRAcetam) 1000 mg Route: IV; Rate: calculated rate; Site: right mb8 antecubital; 12:24 Follow up: Response: No adverse reaction; IV Status: Completed infusion mb8 Medication: 12:17 VIS not applicable for this client. mb8 Outcome: 13:19 Discharge ordered by . rn 13:27 Discharged to home ambulatory. mb8 13:27 Condition: stable 13:27 Discharge instructions given to patient, Instructed on discharge instructions, follow up and referral plans. medication usage, Demonstrated understanding of instructions, follow-up care, medications, Prescriptions given X 2. 13:29 Patient left the ED. mb8 Signatures: Galo Jolley MD MD rn Moreno, Amanda am2 Rees, Jessica, RN RN jh5 Sim Ziegler RN RN mb8
--- NOTE | 2022-08-24 13:19 | EDPHYS ---
Physician Documentation [facility] Name: Judy Ivory Age: 31 yrs Sex: Female : 1990 Arrival Date: 08/24/2022 Time: 11:15 Bed 17 Private MD: ED Physician Galo Jolley HPI: 08/24 12:45 This 31 yrs old Female presents to ER via Ambulatory with complaints of Probable rn Seizure. 12:45 The patient presents with a history of multiple seizures, a total of 3. Character of rn seizure(s): Loss of consciousness: the patient did not lose consciousness, Motor activity: blank stare, Incontinence: none, Apnea: the patient did not experience apnea, Circulation: the patient did not experience evidence of pulse disturbance. Seizure onset: the onset is not known. Associated injury: The patient did not suffer any apparent associated injury. Current symptoms: headache. The patient has experienced similar episodes in the past. The patient has not recently seen a physician. Pt reports headache, hx of migraines, has absence seizures when has migraines, has had 2-3 seizures today. NO longer taking seizure or migraine medications. NO trauma. No fever. Symptoms identical to previous migraines/seizures in past. . 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 - Social history:: Smoking status: Patient reports the use of cigarette tobacco products, smokes one-half pack cigarettes per day. - Family history:: not pertinent. - Hospitalizations: : No recent hospitalization is reported. ROS: 12:45 Constitutional: Negative for fever, chills, and weight loss, Eyes: Negative for injury, rn pain, redness, and discharge, Neck: Negative for injury, pain, and swelling, Cardiovascular: Negative for chest pain, palpitations, and edema, Respiratory: Negative for shortness of breath, cough, wheezing, and pleuritic chest pain, Abdomen/GI: Negative for abdominal pain, nausea, vomiting, diarrhea, and constipation, Back: Negative for injury and pain, MS/Extremity: Negative for injury and deformity, Skin: Negative for injury, rash, and discoloration, Neuro: Negative for weakness, numbness, tingling Exam: 12:45 Constitutional: This is a well developed, well nourished patient who is awake, alert, rn and in no acute distress. Head/Face: Normocephalic, atraumatic. Eyes: Pupils equal round and reactive to light, extra-ocular motions intact. Periorbital areas with no swelling, redness, or edema. Neck: Trachea midline, no thyromegaly or masses palpated, and no cervical lymphadenopathy. Supple, full range of motion without nuchal rigidity, or vertebral point tenderness. No Meningismus. Cardiovascular: Regular rate and rhythm. No pulse deficits. Respiratory: No increased work of breathing, no retractions or nasal flaring. Skin: Warm, dry MS/ Extremity: Pulses equal, no cyanosis Neuro: Awake and alert, GCS 15, oriented to person, place, time, and situation. Cranial nerves II-XII grossly intact. Motor strength 5/5 in all extremities. Sensory grossly intact. Cerebellar exam normal. Vital Signs: 11:45 BP 122 / 85; Pulse 82; Resp 18; Temp 98.6; Pulse Ox 100% ; Weight 61.23 kg; Height 5 jh5 ft. 1 in. (154.94 cm); Pain 0/10; 11:45 Body Mass Index 25.51 (61.23 kg, 154.94 cm) jh5 [place] Coma Score: 11:47 Eye Response: spontaneous(4). Verbal Response: oriented(5). Motor Response: obeys jh5 commands(6). Total: 15. MDM: 11:36 Patient medically screened. rn 13:18 Differential diagnosis: seizure, migraine. Data reviewed: vital signs, nurses notes, rn old medical records, lab test result(s), and as a result, I will discharge patient. Counseling: I had a detailed discussion with the patient and/or guardian regarding: the historical points, exam findings, and any diagnostic results supporting the discharge/admit diagnosis, lab results, the need for outpatient follow up, to return to the emergency department if symptoms worsen or persist or if there are any questions or concerns that arise at home. Response to treatment: the patient's symptoms have resolved after treatment, the patient's condition has returned to base line, the patient is now symptom free, and as a result, I will discharge patient. Special discussion: I discussed with the patient/guardian in detail that at this point there is no indication for admission to the hospital. It is understood, however, that if the symptoms persist or worsen the patient needs to return immediately for re-evaluation. Based on the history and exam findings, there is no indication for further emergent testing or inpatient evaluation. I discussed with the patient/guardian the need to see the neurologist for further evaluation of the symptoms. ED course: Pt and significant other state "we are done", and want to leave, + UTI, will dc home with abx and keppra. Given return precautions.. 08/24 12:13 Order name: Urine Dipstick-Ancillary; Complete Time: 12:40 EDMS 08/24 11:51 Order name: IV Start; Complete Time: 12:15 rn 08/24 11:52 Order name: Urine Test (obtain specimen); Complete Time: 12:15 rn Administered Medications: 12:06 Drug: NS 0.9% 1000 ml Route: IV; Rate: 1000 ml; Site: right antecubital; mb8 13:15 Follow up: Response: No adverse reaction; IV Status: Completed infusion mb8 12:06 Drug: Reglan (metoCLOPramide) 10 mg Route: IVP; Site: right antecubital; mb8 13:28 Follow up: Response: No adverse reaction; Pain is decreased; Nausea is decreased mb8 12:09 Drug: Ketorolac 30 mg Route: IVP; Site: right antecubital; mb8 13:28 Follow up: Response: No adverse reaction; Pain is decreased mb8 12:10 Drug: Zofran (Ondansetron) 4 mg Route: IVP; Site: right antecubital; mb8 13:28 Follow up: Response: No adverse reaction; Nausea is decreased mb8 12:12 Drug: Keppra (levETIRAcetam) 1000 mg Route: IV; Rate: calculated rate; Site: right mb8 antecubital; 12:24 Follow up: Response: No adverse reaction; IV Status: Completed infusion mb8 Disposition Summary: 08/24/22 13:19 Discharge Ordered Location: Home rn Problem: an ongoing problem rn Symptoms: have improved rn Condition: Stable rn Diagnosis - Migraine without aura, not intractable rn - Epileptic seizures related to external causes, not intractable rn - UTI/ Urinary tract infection, site not specified rn Followup: rn - With: - When: As needed - Reason: Recheck today's complaints, Re-evaluation by your physician Discharge Instructions: - Discharge Summary Sheet rn - Migraine Headache rn - Seizure, Adult rn - Urinary Tract Infection, Adult rn Forms: - Medication Reconciliation Form rn - Thank You Letter rn - Antibiotic rn telephonic - Prescription Opioid Use rn Prescriptions: - Keppra 500 mg Oral Tablet - take 1 tablet by ORAL route every 12 hours; 60 tablet; Refills: 0, Product rn Selection Permitted - Cipro 500 mg Oral Tablet - take 1 tablet by ORAL route every 12 hours for 7 days; 14 tablet; Refills: 0, rn Product Selection Permitted Signatures: Galo Jolley MD MD rn Rees, Jessica RN RN jh5 Sim Ziegler RN RN mb8
[2022-08-24 13:35] VITALS: BP 122/85; TEMP 98.6; O2SAT 100
== END 2022-08-24 13:29 | disposition home or self-care (01) ==
LOC: ER 11:12
DX: G43.009 Migraine without aura, not intractable, without status migrainosus (principal); G40.509 Epileptic seizures related to external causes, not intractable, without status epilepticus; N39.0 Urinary tract infection, site not specified; F17.210 Nicotine dependence, cigarettes, uncomplicated
CPT/HCPCS: 96361; 81003; 96375; 96374; 99283; J2765; J1953; J7030; J2405

== ENCOUNTER 2022-08-24 23:01 | Emergency (ER) | payer OTHER ==
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
[2022-08-24] MEDS ORDERED: METOCLOPRAMIDE 10 MG/2mL INJ ONE (23:33)
[2022-08-24] MEDS ORDERED: KETOROLAC 30 MG/ML INJ ONE (23:34)
[2022-08-24] MEDS ORDERED: ONDANSETRON 4 MG/2 ML VIAL ONE (23:34)
[2022-08-24] MEDS ORDERED: NA CHLORIDE 0.9% 500 ML ONE (23:34)
--- NOTE | 2022-08-24 23:58 | EDPHYS ---
Physician Documentation [facility] Name: Judy Ivory Age: 31 yrs Sex: Female : 1990 Arrival Date: 08/24/2022 Time: 23:08 Bed 14 Private MD: ED Physician Marko Salamanca HPI: 08/24 23:39 This 31 yrs old Female presents to ER via Ambulatory with complaints of Seizure, sp3 Headache. 23:39 31-year-old female with history of seizures and migraine history presents to the ED for sp3 continued migraine headache. Patient was seen earlier today and received medications at that time and was subsequently discharged. Patient states that migraine headache never really went away and he suggested continuation of that. She denies any significant change in type or pattern, fever, injury, or any other concerning findings. ROS is negative for all other items.. 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 - Social history:: Smoking status: Patient reports the use of cigarette tobacco products, smokes one-half pack cigarettes per day. ROS: 23:40 Constitutional: Negative for fever, chills, and weight loss, Eyes: Negative for injury, sp3 pain, redness, and discharge, Neck: Negative for injury, pain, and swelling, Cardiovascular: Negative for chest pain, palpitations, and edema, Respiratory: Negative for shortness of breath, cough, wheezing, and pleuritic chest pain, Abdomen/GI: Negative for abdominal pain, nausea, vomiting, diarrhea, and constipation, Back: Negative for injury and pain, : Negative for injury, bleeding, discharge, and swelling, MS/Extremity: Negative for injury and deformity, Psych: Negative for depression, anxiety, suicide ideation, homicidal ideation, and hallucinations, Allergy/Immunology: Negative for hives, rash, and allergies, Endocrine: Negative for neck swelling, polydipsia, polyuria, polyphagia, and marked weight changes. 23:40 All other systems are negative. Exam: 23:40 Constitutional: This is a well developed, well nourished patient who is awake, alert, sp3 and in no acute distress. Head/Face: Normocephalic, atraumatic. Eyes: Pupils equal round and reactive to light, extra-ocular motions intact. Lids and lashes normal. Conjunctiva and sclera are non-icteric and not injected. Cornea within normal limits. Periorbital areas with no swelling, redness, or edema. ENT: Nares patent. No nasal discharge, no septal abnormalities noted. External auditory canals are clear. Oropharynx with no redness, swelling, or masses, exudates, or evidence of obstruction, uvula midline. Mucous membranes moist. Neck: Trachea midline, no thyromegaly or masses palpated, and no cervical lymphadenopathy. Supple, full range of motion without nuchal rigidity, or vertebral point tenderness. No Meningismus. Chest/axilla: Normal chest wall appearance and motion. Nontender with no deformity. No lesions are appreciated. Cardiovascular: Regular rate and rhythm with a normal S1 and S2. No gallops, murmurs, or rubs. Normal PMI, no JVD. No pulse deficits. Respiratory: Lungs have equal breath sounds bilaterally, clear to auscultation and percussion. No rales, rhonchi or wheezes noted. No increased work of breathing, no retractions or nasal flaring. Abdomen/GI: Soft, non-tender, with normal bowel sounds. No distension or tympany. No guarding or rebound. No evidence of tenderness throughout. Back: No spinal tenderness. No costovertebral tenderness. Full range of motion. MS/ Extremity: Pulses equal, no cyanosis. Neurovascular intact. Full, normal range of motion. Neuro: Awake and alert, GCS 15, oriented to person, place, time, and situation. Cranial nerves II-XII grossly intact. Motor strength 5/5 in all extremities. Sensory grossly intact. Cerebellar exam normal. Normal gait. Psych: Awake, alert, with orientation to person, place and time. Behavior, mood, and affect are within normal limits. 23:40 Neuro: No photophobia noted. Patient has laughing and conversing with her significant other in the room in no acute distress.. Vital Signs: 23:16 BP 112 / 82; Pulse 92; Resp 16; Temp 98.7; Pulse Ox 100% on R/A; Weight 61.23 kg (R); kl Height 5 ft. 1 in. (154.94 cm); Pain 8/10; 23:16 Body Mass Index 25.51 (61.23 kg, 154.94 cm) kl [place] Coma Score: 23:19 Eye Response: spontaneous(4). Verbal Response: oriented(5). Motor Response: obeys kl commands(6). Total: 15. MDM: 23:23 Patient medically screened. sp3 23:41 Data reviewed: vital signs, nurses notes. ED course: 31-year-old female with typical sp3 migraine pattern. Diagnostics not indicated at this time. We will give patient's typical migraine cocktail consisting of IV Zofran, IV Reglan, IV Toradol. Normal saline 500 mL will be given as well. She to be discharged home subsequent to treatment completion. I not concerned for any other findings including intracranial hemorrhage, CVA, meningitis, or any other critical findings.. 08/24 23:23 Order name: IV; Complete Time: 23:49 sp3 Administered Medications: 23:48 Drug: NS 0.9% 500 ml Route: IV; Rate: bolus; Site: right antecubital; 4 08/25 00:10 Follow up: Response: No adverse reaction; Marked relief of symptoms; IV Status: jb4 Completed infusion; IV Intake: 500ml 08/24 23:48 Drug: Ketorolac 30 mg Route: IVP; Site: right antecubital; 4 08/25 00:10 Follow up: Response: No adverse reaction; Marked relief of symptoms 4 08/24 23:48 Drug: Zofran (Ondansetron) 4 mg Route: IVP; Site: right antecubital; 4 08/25 00:10 Follow up: Response: No adverse reaction; Marked relief of symptoms 4 08/24 23:48 Drug: Reglan (metoCLOPramide) 10 mg Route: IVP; Site: right antecubital; 4 08/25 00:10 Follow up: Response: No adverse reaction; Marked relief of symptoms jb4 Disposition Summary: 08/24/22 23:57 Discharge Ordered Location: Home sp3 Condition: Stable sp3 Diagnosis - Chronic migraine without aura, not intractable without status migrainosus sp3 Followup: sp3 - With: Private Physician - When: Upon discharge from the Emergency Department - Reason: Continuance of care Discharge Instructions: - Discharge Summary Sheet sp3 - Migraine Headache sp3 Forms: - Medication Reconciliation Form sp3 - Thank You Letter sp3 - Antibiotic Education sp3 - Prescription Opioid Use sp3 Signatures: Suzette Lee RN RN Juan Ramon Mondragon RN RN jb4 Marko Salamanca MD MD sp3
--- NOTE | 2022-08-24 23:58 | ER ---
Nurse's Notes [facility] [place] Name: Judy Ivory Age: 31 yrs Sex: Female : 1990 Arrival Date: 08/24/2022 Time: 23:08 Bed 14 Private MD: Diagnosis: Chronic migraine without aura, not intractable without status migrainosus Presentation: 08/24 23:16 Chief complaint: Patient states: migraine reports seen in this er this am for seizure kl and migraine also diagnosed with UTI has not filled medication reports no seizures since this am. Coronavirus screen: Vaccine status: Patient reports being unvaccinated. Ebola Screen: Patient negative for fever greater than or equal to 101.5 degrees Fahrenheit, and additional compatible Ebola Virus Disease symptoms. Initial Sepsis Screen: Does the patient meet any 2 criteria? No. Patient's initial sepsis screen is negative. Does the patient have a suspected source of infection? No. Patient's initial sepsis screen is negative. Risk Assessment: Do you want to hurt yourself or someone else? Patient reports no desire to harm self or others. 23:16 Method Of Arrival: Ambulatory 23:16 Acuity: NICOLETTE 4 kl Triage Assessment: 23:19 General: Appears in no apparent distress. comfortable, Behavior is calm, cooperative. kl Pain: Complains of pain in forehead Pain currently is 8 out of 10 on a pain scale. Neuro: No deficits noted. 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 - Social history:: Smoking status: Patient reports the use of cigarette tobacco products, smokes one-half pack cigarettes per day. Screenin:15 Abuse screen: Denies threats or abuse. Nutritional screening: No deficits noted. jb4 Tuberculosis screening: No symptoms or risk factors identified. Fall Risk None identified. Assessment: 23:15 General: Appears in no apparent distress. comfortable, Behavior is calm, cooperative, jb4 appropriate for age. Pain: Complains of pain in Headache Pain does not radiate. Pain currently is 8 out of 10 on a pain scale. Neuro: Level of Consciousness is awake, alert, obeys commands, Oriented to person, place, time, situation. Cardiovascular: Patient's skin is warm and dry. Respiratory: Airway is patent Respiratory effort is even, unlabored, Respiratory pattern is regular, symmetrical. GI: No signs and/or symptoms were reported involving the gastrointestinal system. : No signs and/or symptoms were reported regarding the genitourinary system. EENT: No signs and/or symptoms were reported regarding the EENT system. Derm: Skin is intact, Skin is pink, warm \T\ dry. Vital Signs: 23:16 BP 112 / 82; Pulse 92; Resp 16; Temp 98.7; Pulse Ox 100% on R/A; Weight 61.23 kg (R); kl Height 5 ft. 1 in. (154.94 cm); Pain 8/10; 23:16 Body Mass Index 25.51 (61.23 kg, 154.94 cm) kl Gaylord Coma Score: 23:19 Eye Response: spontaneous(4). Verbal Response: oriented(5). Motor Response: obeys kl commands(6). Total: 15. ED Course: 23:08 Patient arrived in ED. es 23:10 Marko Salamanca MD is Attending Physician. sp3 23:14 Pete Hathaway, PEEWEE is Primary Nurse. as6 23:15 Patient has correct armband on for positive identification. Bed in low position. Call jb4 light in reach. Side rails up X 1. Client placed on continuous cardiac and pulse oximetry monitoring. NIBP monitoring applied. 23:18 Triage completed. kl 23:21 Arm band placed on. as6 11 00:10 No provider procedures requiring assistance completed. IV discontinued, intact, jb4 bleeding controlled, No redness/swelling at site. Pressure dressing applied. Administered Medications: 08/24 23:48 Drug: NS 0.9% 500 ml Route: IV; Rate: bolus; Site: right antecubital; jb4 08/25 00:10 Follow up: Response: No adverse reaction; Marked relief of symptoms; IV Status: jb4 Completed infusion; IV Intake: 500ml 08/24 23:48 Drug: Ketorolac 30 mg Route: IVP; Site: right antecubital; jb4 08/25 00:10 Follow up: Response: No adverse reaction; Marked relief of symptoms jb4 08/24 23:48 Drug: Zofran (Ondansetron) 4 mg Route: IVP; Site: right antecubital; jb4 08/25 00:10 Follow up: Response: No adverse reaction; Marked relief of symptoms jb4 08/24 23:48 Drug: Reglan (metoCLOPramide) 10 mg Route: IVP; Site: right antecubital; jb4 08/25 00:10 Follow up: Response: No adverse reaction; Marked relief of symptoms jb4 Intake: 00:10 IV: 500ml; Total: 500ml. jb4 Outcome: 08/24 23:57 Discharge ordered by . spTejas 08/25 00:10 Discharged to home ambulatory, with family. jb4 Condition: stable Discharge instructions given to patient, Instructed on discharge instructions, follow up and referral plans. Demonstrated understanding of instructions, follow-up care. 00:11 Patient left the ED. jb4 Signatures: Suzette Lee, RN Michelle Hernández James, RN RN jb4 Marko Salamanca MD MD sp3 Pete Hathaway RN RN as6
[2022-08-25 01:00] VITALS: BP 112/82; TEMP 98.7; O2SAT 100
== END 2022-08-25 00:11 | disposition home or self-care (01) ==
LOC: ER 23:01
DX: G43.709 Chronic migraine without aura, not intractable, without status migrainosus (principal); F17.210 Nicotine dependence, cigarettes, uncomplicated; Z88.5 Allergy status to narcotic agent
CPT/HCPCS: 96375; 96374; 99283; J2765; J7040; J2405

== ENCOUNTER 2022-10-16 20:30 | Emergency (ER) | payer OTHER ==
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
[2022-10-16] MEDS ORDERED: NA CHLORIDE 0.9% 1,000 ML ONE (20:51)
[2022-10-16 21:09] LABS: Urine Blood 2+ (Negative); Urine Glucose Negative (Negative); Urine Protein Trace (Negative); Urine Specific Gravity >=1.030 (1.005-1.030)
[2022-10-16 21:50] LABS: Urine Specific Gravity/Preg >1.030 (1.005-1.030)
[2022-10-16 22:23] LABS: Absolute Lymphocytes (CBC) 2.6 K/uL (0.7-4.9); Hematocrit 44.1 % (36.0-45.0); Lymphocytes % 25.1 % (15.3-44.8); MCV 87.1 fL (80-100); MPV 7.2 fL (7.6-11.3); RBC Red Blood Cell Count 5.06 M/uL (3.86-4.86)
--- NOTE | 2022-10-16 22:27 | RAD REPORT ---
EXAM DESCRIPTION: US - Transvaginal OB - 10/16/2022 10:07 pm CLINICAL HISTORY: VAGINAL BLEEDING COMPARISON: Transvaginal OB dated 06/29/2017; Transvaginal Study Probe dated 03/13/2022 FINDINGS: Transabdominal and transvaginal ultrasound was obtained. No IUP identified. The endometrial echo complex measures 7 millimeters. The uterus measures 9.6 x 5.7 x 4.5 cm with volume of 212 cc. The right ovary measures 2.6 x 1.6 x 1.8 cm volume of 3.8 cc. The le ft ovary measures 2.4 x 1.6 x 1.3 cm with volume of 2.4 cc. Bilateral ovarian blood flow is present. No free fluid identified. IMPRESSION: No IUP identified. Therefore, cannot exclude early normal IUP, early ectopic, or failed first trimester . Bilateral ovarian blood flow is present.
[2022-10-16] MEDS ORDERED: DIAZEPAM 2 MG TABLET ONE (22:44)
--- NOTE | 2022-10-16 22:46 | EDPHYS ---
Physician Documentation [facility] Name: Judy Ivory Age: 31 yrs Sex: Female : 1990 Arrival Date: 10/16/2022 Time: 20:35 Bed 14 Private MD: Larry Jean-Baptiste HPI: 10/16 22:48 This 31 yrs old Female presents to ER via Ambulatory with complaints of Vaginal snw Bleeding, + Preg <12wks. 22:48 The patient presents with vaginal bleeding that is with clots. Onset: The snw symptoms/episode began/occurred acutely. Associated signs and symptoms: The patient has no apparent associated signs or symptoms. Severity of symptoms: At their worst the symptoms were mild, moderate. The patient is sexually active, reportedly has a single partner, does not use protection during intercourse. The patient's method of control includes nothing. The patient has experienced a previous episode. The patient has not recently seen a physician. 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 - Social history:: Smoking status: Patient reports the use of cigarette tobacco products, smokes one-half pack cigarettes per day. ROS: 22:47 Constitutional: Negative for fever, chills, and weight loss, Eyes: Negative for injury, snw pain, redness, and discharge, ENT: Negative for injury, pain, and discharge, Neck: Negative for injury, pain, and swelling, Cardiovascular: Negative for chest pain, palpitations, and edema, Respiratory: Negative for shortness of breath, cough, wheezing, and pleuritic chest pain, Abdomen/GI: Negative for abdominal pain, nausea, vomiting, diarrhea, and constipation, Back: Negative for injury and pain, MS/Extremity: Negative for injury and deformity, Skin: Negative for injury, rash, and discoloration, Neuro: Negative for headache, weakness, numbness, tingling, and seizure, Psych: Negative for depression, anxiety, suicide ideation, homicidal ideation, and hallucinations. 22:47 : Positive for missed cycle and noted a blood clot "tissue" in the toilet today. Pt has hx of ectopic and states she knows "how tissue" looks.. Exam: 22:46 Constitutional: This is a well developed, well nourished patient who is awake, alert, snw and in no acute distress. Head/Face: Normocephalic, atraumatic. Eyes: Pupils equal round and reactive to light, extra-ocular motions intact. Lids and lashes normal. Conjunctiva and sclera are non-icteric and not injected. Cornea within normal limits. Periorbital areas with no swelling, redness, or edema. ENT: Nares patent. No nasal discharge, no septal abnormalities noted. Tympanic membranes are normal and external auditory canals are clear. Oropharynx with no redness, swelling, or masses, exudates, or evidence of obstruction, uvula midline. Mucous membranes moist. Neck: Trachea midline, no thyromegaly or masses palpated, and no cervical lymphadenopathy. Supple, full range of motion without nuchal rigidity, or vertebral point tenderness. No Meningismus. Chest/axilla: Normal chest wall appearance and motion. Nontender with no deformity. No lesions are appreciated. Cardiovascular: Regular rate and rhythm with a normal S1 and S2. No gallops, murmurs, or rubs. Normal PMI, no JVD. No pulse deficits. Respiratory: Lungs have equal breath sounds bilaterally, clear to auscultation and percussion. No rales, rhonchi or wheezes noted. No increased work of breathing, no retractions or nasal flaring. Abdomen/GI: Soft, non-tender, with normal bowel sounds. No distension or tympany. No guarding or rebound. No evidence of tenderness throughout. Back: No spinal tenderness. No costovertebral tenderness. Full range of motion. Skin: Warm, dry with normal turgor. Normal color with no rashes, no lesions, and no evidence of cellulitis. MS/ Extremity: Pulses equal, no cyanosis. Neurovascular intact. Full, normal range of motion. Neuro: Awake and alert, GCS 15, oriented to person, place, time, and situation. Cranial nerves II-XII grossly intact. Motor strength 5/5 in all extremities. Sensory grossly intact. Cerebellar exam normal. Normal gait. Psych: Awake, alert, with orientation to person, place and time. Behavior, mood, and affect are within normal limits. Vital Signs: 21:00 BP 122 / 96; Pulse 115; Resp 18; Temp 98.2; Pulse Ox 100% ; Weight 61.23 kg; Height 5 tw5 ft. 1 in. (154.94 cm); Pain 5/10; 22:50 BP 119 / 82; Pulse 96; Resp 19 S; Pulse Ox 99% on R/A; aa9 21:00 Body Mass Index 25.51 (61.23 kg, 154.94 cm) tw5 MDM: 21:10 Patient medically screened. snw 21:33 Differential diagnosis: dysmenorrhea, ectopic , threatened Ab, pelvic snw inflammatory disease, iup. Data reviewed: vital signs, nurses notes, lab test result(s), radiologic studies, ultrasound. Data interpreted: Pulse oximetry: on room air is 100 %. Interpretation: normal. Counseling: I had a detailed discussion with the patient and/or guardian regarding: the historical points, exam findings, and any diagnostic results supporting the discharge/admit diagnosis, the presence of at least one elevated blood pressure reading (>120/80) during this emergency department visit, lab results, radiology results, the need for outpatient follow up, for definitive care, an OB/Gyne specialist, to return to the emergency department if symptoms worsen or persist or if there are any questions or concerns that arise at home. 22:43 Response to treatment: There is no appreciated change of the patient's symptoms at this snw time. Special discussion: Based on the patient's Hx, exam, and Dx evaluation, there is no indication for emergent surgery or inpatient Tx. It is understood by the patient/guardian that if the Sx's persist or worsen they need to return immediately for re-evaluation. Based on the history and exam findings, there is no indication for further emergent testing or inpatient evaluation. I discussed with the patient/guardian the need to see the OB Gyne specialist for further evaluation of the symptoms. I discussed with the patient/guardian the need to see the primary care provider for further evaluation of the symptoms. ED course: pt states her last period was 09.07.22. Showed me a picture of a blood clot in her toilet from today. Discussed with pt that UPT was negative for , US did not show any changes c/w in the uterus. Pt voices understanding. 10/16 20:39 Order name: Abo/rh Typing snw 10/16 20:39 Order name: Basic Metabolic Panel snw 10/16 20:39 Order name: CBC with Diff; Complete Time: 22:32 snw 10/16 20:39 Order name: Quantitative Hcg snw 10/16 21:10 Order name: Urine Dipstick-Ancillary; Complete Time: 21:10 EDMS 10/16 21:20 Order name: Urine --Ancillary (enter results); Complete Time: 21:52 ds4 10/16 20:39 Order name: US Transvaginal Ob; Complete Time: 22:32 snw 10/16 20:39 Order name: IV Saline Lock; Complete Time: 22:33 snw 10/16 20:39 Order name: Labs collected and sent; Complete Time: 21:38 snw 10/16 20:39 Order name: NPO; Complete Time: 21:38 snw 10/16 20:39 Order name: Urine Dipstick-Ancillary (obtain specimen); Complete Time: 21:19 snw 10/16 20:39 Order name: Urine Test (obtain specimen); Complete Time: 21:19 snw Administered Medications: 22:43 Drug: Valium (diazepam) 2 mg Route: PO; aa9 22:54 Follow up: Response: No adverse reaction aa9 Disposition Summary: 10/16/22 22:46 Discharge Ordered Location: Home snw Condition: Stable snw Diagnosis - Menstrual migraine, not intractable, without status migrainosus snw - Unspecified condition associated with female genital organs and menstrual cycle snw Followup: snw - With: Emergency Department - When: As needed - Reason: Worsening of condition Followup: snw - With: Private Physician - When: 2 - 3 days - Reason: Recheck today's complaints, Continuance of care, Re-evaluation by your physician Discharge Instructions: - Discharge Summary Sheet snw - Recurrent Migraine Headache snw - Dysfunctional Uterine Bleeding snw - Rehydration, Adult snw Forms: - Medication Reconciliation Form snw - Thank You Letter snw - Antibiotic Education snw - Prescription Opioid Use snw Signatures: Dispatcher [employer] EDBhakti Taylor FNP-C TAR HEEL-Tory Madrigal tw5 Anna Collado, RN RN aa9
--- NOTE | 2022-10-16 22:46 | ER ---
Nurse's Notes [facility] Name: Judy Ivory Age: 31 yrs Sex: Female : 1990 Arrival Date: 10/16/2022 Time: 20:35 Bed 14 Private MD: Diagnosis: Menstrual migraine, not intractable, without status migrainosus;Unspecified condition associated with female genital organs and menstrual cycle Presentation: 10/16 21:00 Chief complaint: Patient states: "I guess a possible miscarriage. I have a tubal tw5 miscarriage before that had ruptured. I am a high risk .". Coronavirus screen: Vaccine status: Patient reports being unvaccinated. Ebola Screen: Patient negative for fever greater than or equal to 101.5 degrees Fahrenheit, and additional compatible Ebola Virus Disease symptoms Patient denies exposure to infectious person. Patient denies travel to an Ebola-affected area in the 21 days before illness onset. Initial Sepsis Screen: Does the patient meet any 2 criteria? No. Patient's initial sepsis screen is negative. Does the patient have a suspected source of infection? No. Patient's initial sepsis screen is negative. Risk Assessment: Do you want to hurt yourself or someone else? Patient reports no desire to harm self or others. Onset of symptoms is unknown. 21:00 Method Of Arrival: Ambulatory tw5 21:00 Acuity: NICOLETTE 3 tw5 Triage Assessment: 21:02 General: Appears uncomfortable, Behavior is calm, cooperative, appropriate for age. tw5 Pain: Complains of pain in low back area Pain currently is 3 out of 10 on a pain scale. : Reports vaginal bleeding that is heavy flow. 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 - Social history:: Smoking status: Patient reports the use of cigarette tobacco products, smokes one-half pack cigarettes per day. Screenin:32 Abuse screen: Denies threats or abuse. Denies injuries from another. Nutritional aa9 screening: No deficits noted. Tuberculosis screening: No symptoms or risk factors identified. 22:55 [facility] ED Fall Risk Assessment (Adult) History of falling in the last 3 months, aa9 including since admission No falls in past 3 months (0 pts) Confusion or Disorientation No (0 pts) Intoxicated or Sedated No (0 pts) Impaired Gait No (0 pts) Mobility Assist Device Used No (0 pt) Altered Elimination No (0 pt) Score/Fall Risk Level 0 - 2 = Low Risk. Assessment: 22:00 General: Appears in no apparent distress. comfortable, Behavior is calm, cooperative, aa9 appropriate for age. Neuro: Level of Consciousness is awake, alert, obeys commands, Oriented to person, place, time, situation. Respiratory: Airway is patent Respiratory effort is even, unlabored. GI: No signs and/or symptoms were reported involving the gastrointestinal system. : Reports vaginal bleeding that is bright red, with clots. Vital Signs: 21:00 BP 122 / 96; Pulse 115; Resp 18; Temp 98.2; Pulse Ox 100% ; Weight 61.23 kg; Height 5 tw5 ft. 1 in. (154.94 cm); Pain 5/10; 22:50 BP 119 / 82; Pulse 96; Resp 19 S; Pulse Ox 99% on R/A; aa9 21:00 Body Mass Index 25.51 (61.23 kg, 154.94 cm) tw5 ED Course: 20:35 Patient arrived in ED. ja2 20:38 Bhakti Alvarado FNP-C [facility]. snw 20:38 Larry Rodríguez MD is Attending Physician. snw 21:02 Triage completed. tw5 21:02 Arm band placed on. tw5 21:22 Anna Collado, RN is Primary Nurse. aa9 22:00 Missed attempt(s): 20 gauge in right antecubital area. Bleeding controlled, band aid aa9 applied, catheter tip intact. 22:09 US Transvaginal Ob In Process Unspecified. EDMS 22:31 Inserted saline lock: 22 gauge in left antecubital area, using aseptic technique. Blood aa9 collected. 22:32 Patient has correct armband on for positive identification. Placed in gown. Bed in low aa9 position. Side rails up X2. Adult w/ patient. 22:32 No provider procedures requiring assistance completed. aa9 22:54 IV discontinued, intact, bleeding controlled, No redness/swelling at site. Pressure aa9 dressing applied. Administered Medications: 22:43 Drug: Valium (diazepam) 2 mg Route: PO; aa9 22:54 Follow up: Response: No adverse reaction aa9 Medication: 22:54 VIS not applicable for this client. aa9 Outcome: 22:46 Discharge ordered by . adriana 22:54 Discharged to home ambulatory, with friend. aa9 22:54 Condition: stable 22:54 Discharge instructions given to patient, family, Instructed on discharge instructions, follow up and referral plans. Demonstrated understanding of instructions, follow-up care. 22:59 Patient left the ED. aa9 Signatures: Dispatcher [employer] EDMS Bhakti Alvarado, ANESTHETIC ASSISTANT-C ANESTHETIC ASSISTANT-Kenyw Leanna Rosenthal Tiffany tw5 Anna Collado, RN RN aa9
[2022-10-16 23:00] LABS: BUN Blood Urea Nitrogen 10 mg/dL (7-18); Bicarbonate 29 mmol/L (21-32); Glomerular Filtration Rate 106 ml/min (=/>90); Glucose Level 90 mg/dL (74-106); Potassium 3.9 mmol/L (3.5-5.1); Sodium Level 138 mmol/L (136-145)
[2022-10-16 23:05] VITALS: TEMP 98.2
[2022-10-16 23:06] VITALS: BP 119/82; O2SAT 99
[2022-10-16 23:07] LABS: HCG, Quantitative < 1 mIU/mL (1-3)
== END 2022-10-16 22:59 | disposition home or self-care (01) ==
LOC: ER 20:30
DX: G43.829 Menstrual migraine, not intractable, without status migrainosus (principal); N94.9 Unspecified condition associated with female genital organs and menstrual cycle; F17.210 Nicotine dependence, cigarettes, uncomplicated; Z88.5 Allergy status to narcotic agent
CPT/HCPCS: 85025; 80048; 36415; 86900; 81025; 86901; 84702; 81003; 76817; 99284; J7030

== ENCOUNTER 2023-04-29 17:02 | Emergency (ER) | payer OTHER ==
--- OUTSIDE RECORDS SUMMARY | 2023-04-29 17:06 | XMS REPORT | Continuity of Care Document ---
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 physician or other designated or consulting phys ician as outlined in the discharge instructions. The patient and/or caregivers are agreeable to this plan of care and follow-up instructions have been exp lained in detail. The patient and/or caregivers have received these instructio ns in written format and have expressed an understanding of the discharge inst ructions. The patient and/or caregivers are aware that any significant change in condition or worsening of symptoms should prompt an immediate return to [facility] or the closest emergency department or a call to 911. Electronically Signed by Mel Billy NP o n 04/21/20 at 2158 RPT #:[id number] END OF REPORT 2020-04-21 21:21:00-00:00 [facility] ([facility]) EMERGENCY PROVIDER REPORT REPORT#:[id number] REPORT STATUS: Signed DATE:04/21/20 TIME: 2120 PATIENT: MIKE SAHNI UNIT #: [id number] ROOM/BED: AGE: 29 SEX: F PCP PHYS: No Primary or Family P hysician SERVICE AUTHOR: Mel Billy [employer] * ALL edits or amendments must be made on the [employer]/computer document * Mel Billy 04/21/202120: HPI-Headache General Confirmed Patient Yes PCP Neurologist in [facility] Presentation Chief Complaint Headache, Migraine headache Onset of Sx (Nursing) Date: 04/21/20 Time: 1929 Hx Obtained From Patient Sudden in Onset? Yes Onset Occurred Today Location Parietal L Quality Painful Severity: Onset Moderate Severity: Current Moderate Associated with Reports: Pain. Denies: Fever, Nausea, Photophobi a. Context /Sexual Hx Last Menstrual Period 03/18/20 Free Text HPI Notes Free Text HPI Notes 29-year-old [facility] of [facility] headache onset 730 this evening. Rep orts she has a history of migraine headaches from a head injury. States [facility] me Tylen ol or ibuprofen to treat the headaches". "I am only allowed so much a day." L ast dose of Tylenol was at 3: 30 PM Risk-Headache Risk Stratification )( Subarachnoid Hemorrhage Risk factors reviewed )( IC Mass Lesion Risk factors reviewed Review of Systems ROS Statements All systems rev neg except as marked. Focused Review of Systems Constitutional Denies: Chills, Fever. Eyes Denies: Blurred bilat, Discharge bilat, Photopho chel. Neurologic Reports: Headache. Past Medical History - Adult Stated Complaint MIGRAINES Allergies Coded Allergies: No Known Allergies (03/20/20) Home Medications Reported Medications AMITRIPTYLINE (ELAVIL) 25 MG PO BEDTIME SUMAtriptan (IMITREX) 100 MG PO DAILY ZONISAMIDE (ZONEGRAN) 100 MG PO BID Review of Nursing Notes Rev avail, and agree Past Medical History: Reports: (migraine), H eadache disorder. Drug Use Meth/amphetamines, In Recovery Smoking status for patients 13 years old or olde r: Current every day smoker Physical Exam Vital Signs Vital Signs First Documented: Result Date Time Pulse Ox 98 04/21 2114 B/P 114/80 04/21 2114 B/P Mean 91 04/21 2114 O2 Delivery Room air 04/21 2114 Temp 36.9 04/21 2114 Pulse 92 04/21 2114 Resp 20 04/21 2114 Last Documented: Result Date Time Pulse Ox 98 04/21 2114 B/P 114/80 04/21 2114 B/P Mean 91 04/21 2114 O2 Delivery Room air 04/21 2114 Temp 36.9 04/21 2114 Pulse 92 04/21 2114 Resp 20 04/21 2114 Review of Vital Signs Reviewed Focused PE General/Const General/Const Awake, Alert, No acute di stress, Well appearing, Well developed , Well hydrated, Well nourished, Cooperative, No t toxic appearing MS Head Head Normocephalic Eyes Eyes PERRL, EOMI Ears/Nose/Throat Ears/Nose/Throat Airway patent, Mucous membrane s moist, Pharynx NL, Tympanic membs NL MS Neck Neck Supple, No meningismus, Full range of motion, No adenopathy, No swelling , Non-tender, No midline vertebral tend Resp/Chest Respiratory/Chest Breath sounds NL, Breath soun ds = bilat, No respiratory distress, No wheezing Cardiovascular Cardiovascular Heart rate NL, Regular r hythm, Heart sounds NL, Cap refill not delayed, Peripheral circulation NL Abdomen/GI Abdomen/GI Soft, Non-tender, BS normoactive Skin Skin Color NL, No rash, Warm, Dry, Intact, Turg or NL, No swelling Neurologic Neurologic Oriented X3, Speech NL, No m otor deficits, No sensory deficits, CN II - XII intact, Reflexes equal bilat, Gait NL Interpretation Diagnostics Point of Care Testing Pulse Oximetry Pulse Ox % 98 On: Room air Interpretation Interpreted by me, Pulse oximetr y normal Time 2113 Re-Evaluation MDM )( Re-Evaluation/Progress #1 Time of Re-Eval 2155 )( Re-Eval Status Improved Plan Post Re-Eval Plan discharge Headache MDM Note The patient presented to the emergency d epartment with a headache. The patient is now resting comfortably and feels better, is alert, talkative, interactive and in no distress. The katrina ent appears well and is able to tolerate PO fluids. The repeat examination is un remarkable and benign. The patient is neurologically intact, has a normal mental status, and is ambul atory in the ED. The history, exam, diagnostic testing (if any) and the patien t's current condition do not suggest meningitis, stroke, sepsis, subarachnoid hemorrhage, intracranial bleeding, encephalitis, temporal arteritis or ot her significant pathology to warrant further testing, continued ED treatment, admission, neurological consultation, or other speci alist evaluation at this point. The vital signs have been stable. The patient's condition is stable a nd appropriate for discharge. The patient will pursue further outpatient evalu ation with the primary care physician or other designated or consulting phys ician as indicated in the discharge instructions. ED Course Medication(s) Ordered Medication(s) Ordered: Central Nervous System Agents Sig/Trevor Start time Last Medication Dose Route Stop Time Status Admin Ketorolac 10 MG X1ED STA 04/21 2119 DC 04/21 Tromethamine PO 04/21 Gastrointestinal Drugs Sig/Trevor Start time Last Medication Dose Route Stop Time Status Admin Metoclopramide HCl 10 MG X1ED STA 04/21 2120 DC 07/ PO 04/21 Ondansetron Base 4 MG X1ED STA 04/21 2120 DC 0 04/21 PO 04/21 Patient Discharge Departure Vital Signs/Condition Vital Signs First Documented: Result Date Time Pulse Ox 98 04/21 2114 B/P 114/80 04/21 2114 B/P Mean 91 04/21 2114 O2 Delivery Room air 04/21 2114 Temp 36.9 04/21 2114 Pulse 92 04/21 2114 Resp 04/21 Last Documented: Result Date Time Pulse Ox 98 04/21 2114 B/P 114/80 04/21 2114 B/P Mean 91 04/21 2114 O2 Delivery Room air 04/21 2114 Temp 36.9 04/21 2114 Pulse 92 04/21 2114 Resp 04/21 All vital signs available at the time of this en try have been reviewed. Condition Stable Clinical Impression Clinical Impression Primary Impression: Migraine Disposition Decision Discharge )( Discharged to Home Yes )( Time 2155 )( Date 04/21/20 Discharge/Care Plan Counseled Regarding Diagnosis, Prescriptions, Ne ed for follow-up Prescriptions naprosyn Prescriptions Reviewed Risks, Benefits, Alternat rich treatment Referrals No Primary or Family Physician (PCP/Family) Discharge Note I have spoken with the patie nt and/or caregivers. I have explained the patient's condition, diagnoses and matthew atment plan based on the information available to me at this time. I have answered the patient's and/ or caregiver's questions and addressed any concerns. The patient and/or careg mar have as good an understanding of the patient 's diagnosis, condition and treatment plan as can be expected at this point. The vital signs have bee n stable. The patient's condition is stable and appr opriate for discharge from the emergency department. The patient will pursue further outpatient evalu ation with the primary care physician or other designated or consulting phys ician as outlined in the discharge instructions. The patient and/or caregivers are agreeable to this plan of care and follow-up instructions have been exp lained in detail. The patient and/or caregivers have received these instructio ns in written format and have expressed an understanding of the discharge inst ructions. The patient and/or caregivers are aware that any significant change in condition or worsening of symptoms should prompt an immediate return to [facility] or the closest emergency department or a call to 911. Sowmya Woods 04/21/202205: HPI-Headache General Initial Greet Date/Time 04/21/202113 Patient Discharge Departure Supervising Physician Note MidLv Saw Pt Alone I have reviewed the PA/[employer]'s note and plan of car e. I was available for consultation as needed at al l times during the patient's visit in the emergency department. I agree with the clinical impression , plan and disposition. Electronically Signed by Mel Billy NP 04/21/20 at 2158 Electronically Signed by Sowmya Woods MD on at [address] [facility] #:[id number] END OF REPORT 2020-04-01 11:29:00-00:00 [facility] ([facility]) EMERGENCY PROVIDER REPORT REPORT#:[id number] REPORT STATUS: Signed DATE:04/01/20 TIME: 112 PATIENT: MIKE SAHNI UNIT #: [id number] ROOM/BED: AGE: 29 SEX: F PCP PHYS: No Primary or Family Ph ysician SERVICE AUTHOR: Bernie Kimble MD * ALL edits or amendments must be made on the [employer] document * HPI-Headache General Initial Greet Date/Time 04/01/20 1047 Presentation Chief Complaint Migraine headache Sudden in Onset? No Severity: Onset Mild Free Text HPI Notes Free Text HPI Notes Patient with a history of mi graine headaches presents with her typical migraine headache and states she need s a note for the rehab facility to give her her anti -inflammatories. Patient has already been seen by her neurologist last week and started on 2 new medications. Patient is currently attempting to get out of it for her migraines. This is being arrange d with her neurologist. Patient states she was here a few days ago and was seen by the ER doctor and written for Fioricet but they will not give that to her at [facility] facility and they have stopped giving her the anti-inflammatories which work for her. Patient states she needs a note for anti-inflammatories to be a dministered at the facility. Patient denies worst headach e of life, denies recent seizure, denies recent head injury, denies focal neurological deficit, denie s any weakness rash or neck pain. Patient states in the past she has had negative CTs and MRIs which showed some mild brain atrophy. Patient states she is c urrently not using drugs but was in rehab for EtOH and methamphetamine abuse. Patient with no fever, not worst headache of life, no thunderclap headache. Risk-Headache Risk Stratification Stroke Risk factors reviewed, No risk factors Review of Systems ROS Statements Complete sys rev neg except as marked. Focused Review of Systems Constitutional Denies: Chills, Fever, Lethargy. GI Denies: Abdominal pain, Diarrhea, Nausea, Vomiti ng. Musculoskeletal Denies: Back pain, Extremity pain. Skin Denies: Diaphoresis, Rash. Past Medical History - Adult Stated Complaint HEADACHE Allergies Coded Allergies: No Known Allergies (03/20/20) Home Medications Reported Medications AMITRIPTYLINE (ELAVIL) 25 MG PO BEDTIME SUMAtriptan (IMITREX) 100 MG PO DAILY ZONISAMIDE (ZONEGRAN) 100 MG PO BID Past Medical History: Reports: (migraine). Smoking status for patients 13 years old or olde r: Current every day smoker Physical Exam Vital Signs Vital Signs First Documented: Result Date Time Pulse Ox 95 / 1046 B/P 123/78 04/01 1046 B/P Mean 93 04/01 1046 O2 Delivery Room air 04/01 1046 Temp 36.5 04/01 1046 Pulse 94 04/01 1046 Resp 18 04/01 1046 Last Documented: Result Date Time Pulse Ox 95 04/01 1046 B/P 123/78 04/01 1046 B/P Mean 93 04/01 1046 O2 Delivery Room air 04/01 1046 Temp 36.5 04/01 1046 Pulse 94 04/01 1046 Resp 18 04/01 1046 Review of Vital Signs Reviewed, Vital signs abno rmal Focused PE MS Head Head Atraumatic, Normocephalic MS Neck Neck Atraumatic, Supple, No meningismus, Full r kalin of motion, No midline vertebral tend Neurologic Neurologic Oriented X3, Speech NL, No m otor deficits, No sensory deficits, CN II - XII intact, Reflexes equal bilat, Cerebella r NL, Memory NL, Gait NL Free Text PE Notes Free Text PE Notes General: no distress well-appearing nontoxic Head: atraumatic, normocephalic EENT; PERRLA, EOMI neck: supple, from, no kernigs, no meningismus Respiratory: no shortness of breath, equal breat h sounds, no dyspnea, no respiratory distress CV: normal heart rate, regular rhythm, no pedal edema, no calf tenderness GI: no abdominal pain, no pulsatile masses, no g uarding, no rebound, no tenderness to palpation Skin: no rash, no petechiae psych: normal affect, normal eye contact Interpretation Diagnostics Point of Care Testing Pulse Oximetry Pulse Ox % 98 On: Room air Interpretation Interpreted by me, Pulse oximetr y normal Time 1238 Re-Evaluation MDM )( Re-Evaluation/Progress #1 Text/Dict Note Patient improved, normal neuro exam, no new comp laints vital stable. Patient verbalized understanding of discharge directions and need for outpatient follow- up Time of Re-Eval 1200 Headache MDM Note The patient presented to the emergency d epartment with a headache. The patient is now resting comfortably and feels better, is alert, talkative, interactive and in no distress. The katrina ent appears well and is able to tolerate PO fluids. The repeat examination is un remarkable and benign. The patient is neurologically intact, has a normal mental status, and is ambul atory in the ED. The history, exam, diagnostic testing (if any) and the patien t's current condition do not suggest meningitis, stroke, sepsis, subarachnoid hemorrhage, intracranial bleeding, encephalitis, temporal arteritis or ot her significant pathology to warrant further testing, continued ED treatment, admission, neurological consultation, or other speci alist evaluation at this point. The vital signs have been stable. The patient's condition is stable a nd appropriate for discharge. The patient will pursue further outpatient evalu ation with the primary care physician or other designated or consulting phys ician as indicated in the discharge instructions. ED Course Medication(s) Ordered Medication(s) Ordered: Central Nervous System Agents Sig/Trevor Start time Last Medication Dose Route Stop Time Status Admin Ketorolac 60 MG X1ED STA 04/01 1137 DC 04/01 Tromethamine IM 04/01 1138 1204 Gastrointestinal Drugs Sig/Trevor Start time Last Medication Dose Route Stop Time Status Admin Ondansetron HCl 4 MG X1ED STA 04/01 1137 DC IM 04/01 1138 1203 Patient Discharge Departure Vital Signs/Condition Vital Signs First Documented: Result Date Time Pulse Ox 95 04/01 1046 B/P 123/78 04/01 1046 B/P Mean 93 04/01 1046 O2 Delivery Room air 04/01 1046 Temp 36.5 04/01 1046 Pulse 94 04/01 1046 Resp 18 04/01 1046 Last Documented: Result Date Time Pulse Ox 95 04/01 1046 B/P 123/78 04/01 1046 B/P Mean 93 04/01 1046 O2 Delivery Room air 04/01 1046 Temp 36.5 04/01 1046 Pulse 94 04/01 1046 Resp 18 04/01 1046 All vital signs available at the time of this en try have been reviewed. Clinical Impression Clinical Impression Primary Impression: Migraine Secondary Impressions: Chronic pain Disposition Decision Discharge )( Discharged to Home Yes )( Time 1239 )( Date 04/01/20 Discharge/Care Plan Counseled Regarding Diagnosis, Medicatio n changes, Need for follow-up, When to return to ED Prescriptions Mario Espinoza Referrals No Primary or Family Physician (PCP/Family) Discharge Note I have spoken with the patie nt and/or caregivers. I have explained the patient's condition, diagnoses and matthew atment plan based on the information available to me at this time. I have answered the patient's and/ or caregiver's questions and addressed any concerns. The patient and/or careg mar have as good an understanding of the patient 's diagnosis, condition and treatment plan as can be expected at this point. The vital signs have bee n stable. The patient's condition is stable and appr opriate for discharge from the emergency department. The patient will pursue further outpatient evalu ation with the primary care physician or other designated or consulting phys ician as outlined in the discharge instructions. The patient and/or caregivers are agreeable to this plan of care and follow-up instructions have been exp lained in detail. The patient and/or caregivers have received these instructio ns in written format and have expressed an understanding of the discharge inst ructions. The patient and/or caregivers are aware that any significant change in condition or worsening of symptoms should prompt an immediate return to [facility] or the closest emergency department or a call to 911. Electronically Signed by Bernie Kimble MD on 0 04/01/20 at 1240 [facility] #:[id number] END OF REPORT 2020-03-22 12:14:00-00:00 [facility] ([facility]) EMERGENCY PROVIDER REPORT REPORT#:[id number] REPORT STATUS: Signed DATE:03/22/20 TIME: 1214 PATIENT: MIKE SAHNI UNIT #: [id number] ROOM/BED: AGE: 29 SEX: F PCP PHYS: No Primary or Family Ph ysician SERVICE AUTHOR: Mireya Gutierres MD * ALL edits or amendments must be made on the [employer]/computer document * HPI-Headache General Confirmed Patient Yes Initial Greet Date/Time 03/22/20 1002 Presentation Chief Complaint Headache Sudden in Onset? No Severity: Onset Moderate Free Text HPI Notes Free Text HPI Notes 29-year-old female with hist ory of migraines, on several antianxiety medications , presents for headache and complaints like she may have a seizure. Patient states her previous seizure was 1 week a go although she states that they might be pseudoseizures. She states that she n oticed her body shaking however she is conscious and alert the whole time. No seizure t cheikh. Patient complaining of moderate to severe headache, nonsudden onset, si milar episodes prior. Review of Systems Free Text ROS Notes Free Text ROS Notes Review of systems: -Constitutional: No fever, chills, fatigue -EENT: No runny nose, sore throat -Cardiovascular: No chest pain, palpitations, sy ncope -Respiratory: No shortness of breath, cough, whe ezing -GI: No abdominal pain, nausea, vomiting, diarrh ea -: No pain or burning with urination, no blood in the urine -Musculoskeletal: No joint pain, muscle pain, ba ck pain -Skin: No rash, abrasion -Neurologic: Headache -Psychiatric: No suicidal or homicidal ideations Past Medical History - Adult Stated Complaint SEIZURE, AZAR, BLURRED VISION Allergies Coded Allergies: No Known Allergies (03/20/20) Home Medications Reported Medications AMITRIPTYLINE (ELAVIL) 25 MG PO BEDTIME SUMAtriptan (IMITREX) 100 MG PO DAILY ZONISAMIDE (ZONEGRAN) 100 MG PO BID Pt reports no significant: Past surgical history , Family history Past Medical History: Reports: (migraine). Smoking status for patients 13 years old or olde r: Current every day smoker Physical Exam Vital Signs Vital Signs First Documented: Result Date Time Pulse Ox 98 03/22 1002 B/P 117/68 06/06 1002 B/P Mean 84 03/22 1002 O2 Delivery Room air 03/22 1002 Temp 36.7 03/22 1002 Pulse 80 03/22 1002 Resp 18 03/22 1002 Last Documented: Result Date Time Pulse Ox 99 03/22 1159 B/P 119/76 03/22 1159 B/P Mean 90 03/22 1159 O2 Delivery Room air 03/22 115 Pulse 82 03/22 1159 Resp 16 03/22 1159 Temp 36.7 03/22 1002 Review of Vital Signs Reviewed Focused PE Neurologic Neurologic Oriented X3, Speech NL, No m otor deficits, No sensory deficits, CN II - XII intact Free Text PE Notes Free Text PE Notes Physical exam -General: Awake, alert, well appearing, no acute distress -Head: Atraumatic, normocephalic -EENT: PERRLA, EOMI -Neck: Supple, full range of motion, no meningis mus -Respiratory: No respiratory distress, clear to auscultation bilaterally, no wheezing or rhonchi -Cardiovascular: Heart rate normal, regular rhyt hm, normal heart sounds -Abdomen: Soft, nontender, nondistended, no rebo und or guarding -Skin: Color normal, no rash, warm, dry - Neurologic: Oriented x3, normal speech -Psychiatric: Normal mood, normal Affect Interpretation Diagnostics Lab Results Interpretation Results Laboratory Tests 03/22/20 1007: [Embedded Image Not Available] Laboratory Tests: 03/22 03/22 1159 1007 Chemistry Sodium (134.0 - 147.0 mmol/l) 141 Potassium (3.6 - 5.2 mmol/L) 3.9 Chloride (98.0 - 107.0 mmol/l) 106 Carbon Dioxide (21.0 - 33.0 mmol/l) 28.0 Anion Gap (0 - 20) 10.9 BUN (7.0 - 18.0 mg/dl) 10 Creatinine (0.60 - 1.30 mg/dL) 0.77 Est GFR ( Amer) (133 - 145 mL/min) 113 L Est GFR (Non-Af Amer) (110 - 120 mL/min) 94 L Glucose (70.0 - 110.0 mg/dl) 94 Calcium (8.0 - 10.5 mg/dl) 8.9 Hematology WBC (4.5 - 11.0 K/mm3) 8.6 RBC (3.80 - 5.20 M/mm3) 4.32 Hgb (12.0 - 16.0 gm/dL) 12.8 Hct (36.0 - 48.0 %) 40.3 MCV (82.0 - 99.0 UM3) 93.3 MCH (25.5 - 32.5 UUG) 29.6 MCHC (29.0 - 35.5 gm/dL) 31.8 RDW (11.5 - 15.0 %) 13.1 Plt Count (150 - 400 K/mm3) 334 MPV (7.4 - 10.4 fl) 9.0 Neut % (Auto) (49.0 - 76.0 %) 53.2 Lymph % (Auto) (23.0 - 38.0 %) 33.3 Bee % (Auto) (1.0 - 10.0 %) 9.3 Eos % (Auto) (1.0 - 5.0 %) 3.0 Baso % (Auto) (0.0 - 1.0 %) 0.9 Neut # (Auto) (2.4 - 6.3 K/mm3) 4.6 Lymph # (Auto) (1.2 - 4.0 K/mm3) 2.9 Bee # (Auto) (0.0 - 0.6 K/mm3) 0.8 H Eos # (Auto) (0.0 - 0.7 K/MM3) 0.3 Baso # (Auto) (0.0 - 0.2 K/mm3) 0.1 Immature Gran % (0.0 - 0.4 %) 0.3 Immature Gran # (0.00 - 0.07 x10 3/uL) 0.03 Urines Urine Color LT YELLOW Urine Appearance SLHZY Urine pH (5.0 - 9.0) 8.0 Ur Specific [place] (1.000 - 1.030) 1.015 Urine Protein (NEGATIVE mg/dl) NEGATIVE Urine Glucose (UA) (NORMAL mg/dl) NORMAL Urine Ketones (NEGATIVE mg/dl) NEGATIVE Urine Blood (NEGATIVE Benedict/micL) NEGATIVE Urine Nitrite (NEGATIVE) NEGATIVE Urine Bilirubin (NEGATIVE mg/dL) NEGATIVE Urine Urobilinogen (NORMAL mg/dl) NORMAL Ur Leukocyte Esterase (NEGATIVE Palmer/micL) NEGAT RICH Urine RBC (0 - 3 RBC/HPF) NONE SEEN Urine WBC (NONE WBC/HPF) 0-3 Ur Epithelial Cells (0 - 3 EPI/HPF) 10-15 H Amorphous Sediment (NONE) FEW Urine Bacteria (NONE) FEW Urine HCG, Qual (NEGATIVE) NEGATIVE Lab Statement Laboratory studies reviewed and considered in th e medical decision-making. Point of Care Testing Pulse Oximetry Pulse Ox % 98 On: Room air Interpretation Interpreted by me, Pulse oximetr y normal Time 1002 Re-Evaluation MDM Free Text MDM Notes Free Text MDM Notes 29-year-old female with complaints of migraine. Will obtain basic lab work, test and administer migraine cocktail )( Re-Evaluation/Progress #1 Text/Dict Note Headache significantly improved after migraine c ocktail. Patient will be discharged with Fioricet. She is comfortable wit h discharge, follow-up instructions and return precautions provided. Time of Re-Eval 1200 )( Re-Eval Status Improved ED Course Medication(s) Ordered Medication(s) Ordered: Central Nervous System Agents Sig/Trevor Start time Last Medication Dose Route Stop Time Status Admin Ketorolac 30 MG X1ED STA 03/22 1055 DC 03/22 Tromethamine IV 03/22 1056 1114 Gastrointestinal Drugs Sig/Trevor Start time Last Medication Dose Route Stop Time Status Admin Metoclopramide HCl 10 MG X1ED STA 03/22 1055 DC 03/22 IV 03/22 1056 1113 Patient Discharge Departure Vital Signs/Condition Vital Signs First Documented: Result Date Time Pulse Ox 98 03/22 1002 B/P 117/68 03/22 1002 B/P Mean 84 03/22 1002 O2 Delivery Room air 03/22 1002 Temp 36.7 03/22 1002 Pulse 80 03/22 1002 Resp 18 03/22 1002 Last Documented: Result Date Time Pulse Ox 99 03/22 1159 B/P 119/76 03/22 1159 B/P Mean 90 03/22 1159 O2 Delivery Room air 03/22 1159 Pulse 82 03/22 1159 Resp 16 03/22 1159 Temp 36.7 03/22 1002 All vital signs available at the time of this en try have been reviewed. Clinical Impression Clinical Impression Primary Impression: Migraine Disposition Decision Discharge )( Discharged to Home Yes )( Time 1214 )( Date 03/22/20 Discharge/Care Plan Counseled Regarding Diagnosis, Lab resul ts, Prescriptions, Need for follow-up, When to return to ED Prescriptions fioricet Referrals No Primary or Family Physician (PCP/Family) Discharge Note I have spoken with the patie nt and/or caregivers. I have explained the patient's condition, diagnoses and matthew atment plan based on the information available to me at this time. I have answered the patient's and/ or caregiver's questions and addressed any concerns. The patient and/or careg mar have as good an understanding of the patient 's diagnosis, condition and treatment plan as can be expected at this point. The vital signs have bee n stable. The patient's condition is stable and appr opriate for discharge from the emergency department. The patient will pursue further outpatient evalu ation with the primary care physician or other designated or consulting phys ician as outlined in the discharge instructions. The patient and/or caregivers are agreeable to this plan of care and follow-up instructions have been exp lained in detail. The patient and/or caregivers have received these instructio ns in written format and have expressed an understanding of the discharge inst ructions. The patient and/or caregivers are aware that any significant change in condition or worsening of symptoms should prompt an immediate return to [facility] or the closest emergency department or a call to 911. Electronically Signed by Mireya Gutierres MD on 0 03/28/20 at 1447 RPT #:[id number] END OF REPORT 2020-03-20 23:09:00-00:00 [facility] ([facility]) EMERGENCY PROVIDER REPORT REPORT#:[id number] REPORT STATUS: Signed DATE:03/20/20 TIME: 2308 PATIENT: MIKE SAHNI UNIT #: [id number] ROOM/BED: AGE: 29 SEX: F PCP PHYS: No Primary or Family P hysician SERVICE AUTHOR: Ihsan Duran MD * ALL edits or amendments must be made on the [email or web address] document * HPI-Medical Clearance General Initial Greet Date/Time 03/20/20 2241 Presentation Chief Complaint MEDICATION INSTRUCTIONS Free Text HPI Notes Free Text HPI Notes 29-year-old female with hist ory of headaches presents emergency department from rehab requesting documentation to provide to her rehab facilities caretakers stating the proper dose for ibuprofen in a day f or headache. Patient states that she is a recovering addict at this time and due to those conditions the caretakers at the facility only administer 200 m g at a time. Review of Systems ROS Statements All systems rev neg except as marked. Focused Review of Systems Neurologic Reports: Headache. Past Medical History - Adult Stated Complaint NEEDS MED FOR HEADACHE TO PREVE NT SEIZURES Allergies Coded Allergies: No Known Allergies (03/20/20) Smoking status for patients 13 years old or olde r: Current every day smoker Physical Exam Vital Signs Vital Signs First Documented: Result Date Time Pulse Ox 99 03/20 2240 B/P 117/82 03/20 2240 B/P Mean 93 / 2240 O2 Delivery Room air 03/20 2240 Temp 36.8 03/20 2240 Pulse 82 03/20 2240 Resp 18 03/20 2240 Last Documented: Result Date Time Pulse Ox 99 03/20 2240 B/P 117/82 03/20 2240 B/P Mean 93 / 2240 O2 Delivery Room air 03/20 2240 Temp 36.8 03/20 2240 Pulse 82 03/20 2240 Resp 18 03/20 2240 Review of Vital Signs Reviewed, Vital signs norm al Focused PE General/Const General/Const Awake, Alert, Well appearing, Wel l developed, Well hydrated, Cooperative Eyes Eyes PERRL Resp/Chest Respiratory/Chest Breath sounds NL, Breath soun ds = bilat, No respiratory distress, No rales, No rhonchi, No wheezing Cardiovascular Cardiovascular Heart rate NL, Regular rhythm, H eart sounds NL, Peripheral circulation NL Abdomen/GI Abdomen/GI Soft, Non-tender, No guarding, No re bound Neurologic Neurologic Oriented X3, Speech NL, No motor def icits, No sensory deficits Psychiatric Psychiatric Affect NL, Mood NL, Thought content NL Re-Evaluation MDM Free Text MDM Notes Free Text MDM Notes 29 female presents with request to have medicati on instruction provided for rehab caretakers DDX includes not limited to medical clearance, m edication instruction, medication dosage information At this time the patient will be discharged. She is provided with information to bring back to her facilit y stating she can take 600 mg every 6 hours and not to exceed more than 300 mg in 24HR PERIOD. Patient Discharge Departure Vital Signs/Condition Vital Signs First Documented: Result Date Time Pulse Ox 99 03/20 2240 B/P 117/82 03/20 2240 B/P Mean 93 03/20 2240 O2 Delivery Room air 03/20 2240 Temp 36.8 03/20 2240 Pulse 82 03/20 2240 Resp 18 03/200 Last Documented: Result Date Time Pulse Ox 99 03/20 2240 B/P 117/82 03/20 2240 B/P Mean 93 / 2240 O2 Delivery Room air 03/20 2240 Temp 36.8 03/20 2240 Pulse 82 03/20 2240 Resp 18 03/20 2240 All vital signs available at the time of this en try have been reviewed. Condition Stable Clinical Impression Clinical Impression Primary Impression: Medication management Disposition Decision Other LAWRENCE-screened discharged Yes Discharge/Care Plan Referrals No Primary or Family Physician (PCP/Family) Electronically Signed by Ihsan Duran MD o n 03/20/20 at 2316 RPT #:[id number] END OF REPORT 2020-03-20 23:09:00-00:00 [facility] ([facility]) EMERGENCY PROVIDER REPORT REPORT#:[id number] REPORT STATUS: Signed DATE:03/20/20 TIME: 2308 PATIENT: MIKE SAHNI UNIT #: [id number] ROOM/BED: AGE: 29 SEX: F PCP PHYS: No Primary or Family Ph ysician SERVICE AUTHOR: Ihsan Duran MD * ALL edits or amendments must be made on the [employer]/computer document * See Addendum HPI-Medical Clearance General Initial Greet Date/Time 03/20/20 224 Presentation Chief Complaint MEDICATION INSTRUCTIONS Free Text HPI Notes Free Text HPI Notes 29-year-old female with hist ory of headaches presents emergency department from rehab requesting documentation to provide to her rehab facilities caretakers stating the proper dose for ibuprofen in a day f or headache. Patient states that she is a recovering addict at this time and due to those conditions the caretakers at the facility only administer 200 m g at a time. Review of Systems ROS Statements All systems rev neg except as marked. Focused Review of Systems Neurologic Reports: Headache. Past Medical History - Adult Stated Complaint NEEDS MED FOR HEADACHE TO PREVE NT SEIZURES Allergies Coded Allergies: No Known Allergies (03/20/20) Smoking status for patients 13 years old or olde r: Current every day smoker Physical Exam Vital Signs Vital Signs First Documented: Result Date Time Pulse Ox 99 03/20 2240 B/P 117/82 / 2240 B/P Mean 93 / 2240 O2 Delivery Room air 03/200 Temp 36.8 03/20 2240 Pulse 82 03/20 2240 Resp 18 03/20 2240 Last Documented: Result Date Time Pulse Ox 99 03/20 2240 B/P 117/82 03/20 2240 B/P Mean 93 03/20 2240 O2 Delivery Room air 03/20 2240 Temp 36.8 03/20 2240 Pulse 82 03/200 Resp 18 03/20 224 Review of Vital Signs Reviewed, Vital signs norm al Focused PE General/Const General/Const Awake, Alert, Well appearing, Wel l developed, Well hydrated, Cooperative Eyes Eyes PERRL Resp/Chest Respiratory/Chest Breath sounds NL, Breath soun ds = bilat, No respiratory distress, No rales, No rhonchi, No wheezing Cardiovascular Cardiovascular Heart rate NL, Regular rhythm, H eart sounds NL, Peripheral circulation NL Abdomen/GI Abdomen/GI Soft, Non-tender, No guarding, No re bound Neurologic Neurologic Oriented X3, Speech NL, No motor def icits, No sensory deficits Psychiatric Psychiatric Affect NL, Mood NL, Thought content NL Re-Evaluation MDM Free Text MDM Notes Free Text MDM Notes 29 female presents with request to have medicati on instruction provided for rehab caretakers DDX includes not limited to medical clearance, m edication instruction, medication dosage information At this time the patient will be discharged. She is provided with information to bring back to her facilit y stating she can take 600 mg every 6 hours and not to exceed more than 300 mg in 24HR PERIOD. Patient Discharge Departure Vital Signs/Condition Vital Signs First Documented: Result Date Time Pulse Ox 99 03/20 2240 B/P 117/82 03/20 2240 B/P Mean 93 / 2240 O2 Delivery Room air 03/20 2240 Temp 36.8 03/20 2240 Pulse 82 03/20 2240 Resp 18 03/20 2240 Last Documented: Result Date Time Pulse Ox 99 03/20 2240 B/P 117/82 03/20 2240 B/P Mean 93 03/200 O2 Delivery Room air 03/20 2240 Temp 36.8 03/20 2240 Pulse 82 03/20 2240 Resp 18 03/20 2240 All vital signs available at the time of this en try have been reviewed. Condition Stable Clinical Impression Clinical Impression Primary Impression: Medication management Disposition Decision Other LAWRENCE-screened discharged Yes Discharge/Care Plan Referrals No Primary or Family Physician (PCP/Family) Electronically Signed by Ihsan Duran MD o n 03/20/20 at 2316 Addendum 1: 05/06/202156 by Ihsan Duran MD Provider Time Updates Greet Date/Time Date/Time Seen by Provider 03/20/202240 Disposition Other )( Time 2306 )( Date 03/20/20 LAWRENCE-screened discharged Yes Electronically Signed by Ihsan Duran MD o n 05/06/20 at 2157 RPT #:[id number] END OF REPORT
[2023-04-29] MEDS ORDERED: dexAMETHasone 10 MG/ML VIAL ONE (18:00)
[2023-04-29] MEDS ORDERED: METOCLOPRAMIDE 10 MG/2mL INJ ONE (18:00)
[2023-04-29] MEDS ORDERED: NA CHLORIDE 0.9% 1,000 ML ONE (18:01)
[2023-04-29] MEDS ORDERED: KETOROLAC 30 MG/ML INJ ONE (18:01)
[2023-04-29] MEDS ORDERED: MAGNESIUM SULFATE 1 gm IVPB 1 GM/100 ML BAG IV ONE (18:01)
--- NOTE | 2023-04-29 18:45 | EDPHYS ---
Physician Documentation [facility] Name: Judy Ivory Age: 32 yrs Sex: Female : 1990 Arrival Date: 04/29/2023 Time: 17:02 Bed 15 Private MD: ED Physician Jose D Terry HPI: 04/29 17:16 This 32 yrs old Female presents to ER via Ambulatory with complaints of Insect Bite, sb4 Probable Seizure. 17:16 patient states that she has had a migraine for over 24 hours now and it has caused her sb4 to have 2 absence seizures, which is normal for her. she used to be on depakote but has not seen her neurologist in awhile. she also comes in complaining of an infected lesion on her right cheek causing her entire right cheek to swell. she has been taking unprescribed keflex from her mom. denies any fever. 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 - Social history:: Smoking status: Patient reports the use of cigarette tobacco products, smokes one-half pack cigarettes per day. ROS: 17:16 Constitutional: Negative for fever, chills, and weight loss, Eyes: Negative for injury, sb4 pain, redness, and discharge, ENT: Negative for injury, pain, and discharge, Cardiovascular: Negative for chest pain, palpitations, and edema, Respiratory: Negative for shortness of breath, cough, wheezing, and pleuritic chest pain, Abdomen/GI: Negative for abdominal pain, nausea, vomiting, diarrhea, and constipation, Back: Negative for injury and pain, MS/Extremity: Negative for injury and deformity. 17:16 Skin: Positive for erythema, lesions, pustules, of the right cheek. 17:16 Neuro: Positive for headache, seizure activity, Negative for altered mental status, dizziness, gait disturbance, hearing loss, loss of consciousness, numbness, syncope, visual changes, weakness. 17:16 All other systems are negative. Exam: 17:16 Constitutional: This is a well developed, well nourished patient who is awake, alert, sb4 and in no acute distress. Head/Face: Normocephalic, atraumatic. Eyes: Extra-ocular motions intact. Periorbital areas with no swelling, redness, or edema. ENT: Mucous membranes moist. Cardiovascular: Regular rate and rhythm with a normal S1 and S2. Respiratory: Lungs have equal breath sounds bilaterally, clear to auscultation and percussion. No rales, rhonchi or wheezes noted. No increased work of breathing, no retractions or nasal flaring. Abdomen/GI: Soft, non-tender, no distension. MS/ Extremity: Pulses equal, no cyanosis. Neurovascular intact. Full, normal range of motion. Neuro: Awake and alert, GCS 15, oriented to person, place, time, and situation. Cranial nerves II-XII grossly intact. Motor strength 5/5 in all extremities. Sensory grossly intact. Cerebellar exam normal. Normal gait. 17:16 Skin: lesion(s), noted, and can be described as pustular, raised, tender, located on the right cheek. Vital Signs: 17:07 BP 128 / 99; Pulse 93; Resp 16 S; Temp 98(TE); Pulse Ox 100% on R/A; Weight 65.77 kg aa5 (R); Height 5 ft. 1 in. (R); 18:00 BP 119 / 81; Pulse 86; Resp 18; Pulse Ox 99% on R/A; eh3 17:07 Body Mass Index 27.40 (65.77 kg, 154.94 cm) aa5 MDM: 17:04 Patient medically screened. sb4 17:16 Differential diagnosis: cellulitus, abscess, migraine, insect bite, seizure, CVA, TIA, sb4 sepsis. 18:44 Data reviewed: vital signs, nurses notes, and as a result, I will discharge patient. sb4 Counseling: I had a detailed discussion with the patient and/or guardian regarding: the historical points, exam findings, and any diagnostic results supporting the discharge/admit diagnosis, the need for outpatient follow up, a neurologist. 04/29 17:10 Order name: IV Start; Complete Time: 17:42 sb4 Administered Medications: 18:10 Drug: Ketorolac IVP 30 mg Route: IVP; Site: left antecubital; [facility] 19:43 Follow up: Response: No adverse reaction rv 18:10 Drug: metoCLOPramide IVP 10 mg Route: IVP; Site: left antecubital; [facility] 19:43 Follow up: Response: No adverse reaction rv 18:10 Drug: Magnesium Sulfate IVPB 1 grams Route: IVPB; Infused Over: 1 hrs; Site: left 3 antecubital; 19:43 Follow up: Response: No adverse reaction; IV Status: Completed infusion; IV Intake: rv 100ml 18:10 Drug: Decadron - Dexamethasone IVP 10 mg Route: IVP; Site: left antecubital; 3 19:42 Follow up: Response: No adverse reaction rv 18:10 Drug: NS 0.9% IV 1000 ml Route: IV; Rate: 1 bolus; Site: left antecubital; [facility] 19:42 Follow up: IV Status: Completed infusion; IV Intake: 1000ml rv Disposition: 20:59 Co-signature as Attending Physician, Jose D Terry MD I reviewed the patient's care rt provided by the Advanced Practice Provider and agree with the diagnosis and treatment plan. Disposition Summary: 04/29/23 18:44 Discharge Ordered Location: Home sb4 Problem: an acute exacerbation sb4 Symptoms: have improved sb4 Condition: Stable sb4 Diagnosis - Migraine without aura, not intractable sb4 - Other seizures sb4 - Cellulitis of face sb4 Followup: sb4 - With: - When: 2 - 3 days - Reason: Recheck today's complaints, Continuance of care, Re-evaluation by your physician Discharge Instructions: - Discharge Summary Sheet sb4 - Cellulitis, Adult sb4 - Seizure, Adult sb4 Forms: - Medication Reconciliation Form sb4 - Thank You Letter sb4 - Antibiotic Education sb4 - Prescription Opioid Use sb4 - Patient Portal Instructions sb4 Prescriptions: - cephalexin 500 mg Oral tablet - take 1 tablet by ORAL route every 12 hours for 7 days; 14 tablet; Refills: 0, sb4 Product Selection Permitted Signatures: Maria Eugenia White RN RN aa5 Marlee Aiken RN RN eh3 Jo Stewart, LINDA PAAlexsandra sb4 Jose D Terry MD MD rt Jack Hendrix RN rv
--- NOTE | 2023-04-29 18:45 | ER ---
Nurse's Notes [facility] Name: Judy Ivory Age: 32 yrs Sex: Female : 1990 Arrival Date: 04/29/2023 Time: 17:02 Bed 15 Private MD: Diagnosis: Migraine without aura, not intractable;Other seizures;Cellulitis of face Presentation: 04/29 17:07 Chief complaint: Patient states: "I have a pimple or something on my right cheek and aa5 it's swollen, it's giving me a headache and headaches cause seizures, I've had 2 seizures over the last 24 hours". Coronavirus screen: At this time, the client does not indicate any symptoms associated with coronavirus-19. Ebola Screen: Patient denies travel to an Ebola-affected area in the 21 days before illness onset. Initial Sepsis Screen: Does the patient meet any 2 criteria? HR > 90 bpm. Does the patient have a suspected source of infection? No. Patient's initial sepsis screen is negative. Risk Assessment: Do you want to hurt yourself or someone else? Patient reports no desire to harm self or others. Onset of symptoms was April 2023. 17:07 Acuity: NICOLETTE 3 aa5 17:07 Method Of Arrival: Ambulatory aa5 Triage Assessment: 17:10 Bite description: bite sustained to right cheek by unknown insect, animal information: eh3 vaccination(s) is not applicable. General: Appears in no apparent distress. uncomfortable, Behavior is calm, cooperative. 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 - Social history:: Smoking status: Patient reports the use of cigarette tobacco products, smokes one-half pack cigarettes per day. Screenin:10 [facility] ED Fall Risk Assessment (Adult) Score/Fall Risk Level 0 - 2 = Low Risk. Abuse eh3 screen: Denies threats or abuse. Denies injuries from another. Nutritional screening: No deficits noted. Tuberculosis screening: No symptoms or risk factors identified. Assessment: 17:10 General: Appears in no apparent distress. uncomfortable, Behavior is calm, cooperative. eh3 Pain: Complains of pain in right cheek. Neuro: Level of Consciousness is awake, alert, obeys commands, Oriented to person, place, time, situation. Cardiovascular: Capillary refill < 3 seconds Patient's skin is warm and dry. Respiratory: Airway is patent Respiratory effort is even, unlabored, Respiratory pattern is regular, symmetrical. GI: Abdomen is round non-distended. Derm: Skin is intact, is healthy with good turgor, Skin is pink, warm \\T\\ dry. Wound noted right cheek. Musculoskeletal: Circulation, motion, and sensation intact. Range of motion: intact in all extremities. 18:00 Reassessment: Patient appears in no apparent distress at this time. Patient and/or eh3 family updated on plan of care and expected duration. Pain level reassessed. Patient is alert, oriented x 3, equal unlabored respirations, skin warm/dry/pink. Vital Signs: 17:07 BP 128 / 99; Pulse 93; Resp 16 S; Temp 98(TE); Pulse Ox 100% on R/A; Weight 65.77 kg aa5 (R); Height 5 ft. 1 in. (R); 18:00 BP 119 / 81; Pulse 86; Resp 18; Pulse Ox 99% on R/A; eh3 17:07 Body Mass Index 27.40 (65.77 kg, 154.94 cm) aa5 ED Course: 17:03 Patient arrived in ED. ts1 17:04 [facility] Stewart [facility] sb4 17:04 Jose D Terry MD is Attending Physician. sb4 17:07 Arm band placed on. aa5 17:08 Triage completed. aa5 17:10 Patient has correct armband on for positive identification. Bed in low position. Call 3 light in reach. Side rails up X2. Adult w/ patient. Provided Education on: N/A. Pulse ox on. NIBP on. Door closed. Noise minimized. Lights dimmed. 17:25 Marlee Aiken, PEEWEE is Primary Nurse. eh3 17:42 Inserted saline lock: 20 gauge in left antecubital area, using aseptic technique. Blood rs5 collected. 18:44 Simba Ko MD is Referral Physician. sb4 19:40 IV discontinued, intact, bleeding controlled, No redness/swelling at site. Pressure eh3 dressing applied. 19:43 No provider procedures requiring assistance completed. eh3 Administered Medications: 18:10 Drug: Ketorolac IVP 30 mg Route: IVP; Site: left antecubital; 3 19:43 Follow up: Response: No adverse reaction rv 18:10 Drug: metoCLOPramide IVP 10 mg Route: IVP; Site: left antecubital; 3 19:43 Follow up: Response: No adverse reaction rv 18:10 Drug: Magnesium Sulfate IVPB 1 grams Route: IVPB; Infused Over: 1 hrs; Site: left eh3 antecubital; 19:43 Follow up: Response: No adverse reaction; IV Status: Completed infusion; IV Intake: rv 100ml 18:10 Drug: Decadron - Dexamethasone IVP 10 mg Route: IVP; Site: left antecubital; 3 19:42 Follow up: Response: No adverse reaction rv 18:10 Drug: NS 0.9% IV 1000 ml Route: IV; Rate: 1 bolus; Site: left antecubital; 3 19:42 Follow up: IV Status: Completed infusion; IV Intake: 1000ml rv Medication: 19:43 VIS not applicable for this client. eh3 Intake: 19:42 IV: 1000ml; Total: 1000ml. rv 19:43 IV: 100ml; Total: 1100ml. rv Outcome: 18:44 Discharge ordered by . sb4 19:43 Patient left the ED. rv 19:43 Discharged to home ambulatory, with significant other. eh3 19:43 Condition: stable 19:43 Discharge instructions given to patient, Instructed on discharge instructions, follow up and referral plans. medication usage, Demonstrated understanding of instructions, follow-up care, medications, Prescriptions given X 1. Signatures: Maria Eugenia White RN RN aa5 Jack Hendrix RN RN rv Marlee Aiken RN RN eh3 Jo Stewart PA-C PA-C sb4 Butch Luevano rs5 Erin Butler PAS PAS ts1 Corrections: (The following items were deleted from the chart) 20:01 20:01 No provider procedures requiring assistance completed. eh3 eh3
[2023-04-29 22:27] VITALS: BP 128/99; TEMP 98; O2SAT 100
== END 2023-04-29 19:43 | disposition home or self-care (01) ==
LOC: ER 17:02
DX: G43.009 Migraine without aura, not intractable, without status migrainosus (principal); G40.89 Other seizures; L03.211 Cellulitis of face; F17.210 Nicotine dependence, cigarettes, uncomplicated; Z88.5 Allergy status to narcotic agent
CPT/HCPCS: 96365; 96375; 99284; 96366; J3475; J2765; J1100; J7030

== ENCOUNTER → 2023-12-11 | Emergency (ER) | payer OTHER ==
[~2023-12-11] MED LIST: CEFTRIAXONE 1000 MG/VIAL ONE; CIPROFLOXACIN HCL 500 MG TAB ONE; MORPHINE 4 MG/ML SYR ONE; NA CHLORIDE 0.9% 1,000 ML ONE; ONDANSETRON 4 MG/2 ML VIAL ONE
--- OUTSIDE RECORDS SUMMARY | 2023-12-11 12:17 | XMS REPORT | Continuity of Care Document ---
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 PO BID Review of Nursing Notes Rev avail, and agreePast Medical History:Reports: (migraine), Headache disorder. Drug Use Meth/amphetamines, In RecoverySmoking status for patients 13 years old or older: Current every day smoker Physical Exam Vital SignsVital SignsFirst Documented: Result Date Time Pulse Ox 98 [...] 2114 Review of Vital Signs Reviewed Focused PEGeneral/Const General/Const Awake, Alert, No acute distress, Well appearing, Well developed, Well hydrated, Well nourished, Cooperative, Not toxic appearingMS Head Head NormocephalicEyes Eyes PERRL, EOMIEars/Nose/Throat Ears/Nose/Throat Airway patent, Mucous membranes moist, Pharynx NL, Tympanic membs NLMS Neck Neck Supple, No meningismus, Full range of motion, No adenopathy, No swelling, Non-tender, No midline vertebral tendResp/Chest Respiratory/Chest Breath sounds NL, Breath sounds = bilat, No respiratory distress, No wheezingCardiovascular Cardiovascular Heart rate NL, Regular rhythm, Heart sounds NL, Cap refill notdelayed, Peripheral circulation NLAbdomen/GI Abdomen/GI Soft, Non-tender, BS normoactiveSkin Skin Color NL, No rash, Warm, Dry, Intact, Turgor NL, No swellingNeurologic Neurologic Oriented X3, Speech NL, No motor deficits, No sensory deficits, CNII - XII intact, Reflexes equal bilat, Gait NL Interpretation Diagnostics Point of Care TestingPulse Oximetry Pulse Ox % 98 On: Room air Interpretation Interpreted by me, Pulse oximetry normal Time 2113 Re-Evaluation [facility] )( Re-Evaluation/Progress #1Time of Re-Eval 2155)( Re-Eval Status ImprovedPlan Post Re-Eval Plan discharge Headache MDM NoteThe patient presented to the emergency department with a headache. The patient is now resting comfortably and feels better, is alert, talkative, interactive and in no distress. The patient appears well and is able to tolerate PO fluids. The repeat examination is unremarkable and benign. The patient is neurologicallyintact, has a normal mental status, and is ambulatory in the ED. The history, exam, diagnostic testing (if any) and the patient's current condition do not suggest meningitis, stroke, sepsis, subarachnoid hemorrhage, intracranial bleeding, encephalitis, temporal arteritis or other significant pathology to warrant further testing, continued ED treatment, admission, neurological consultation, or other specialist evaluation at this point. The vital signs havebeen stable. The patient's condition is stable and appropriate for discharge. The patient will pursue further outpatient evaluation with the primary care physician or other designated or consulting physician as indicated in the discharge instructions. ED CourseMedication(s) OrderedMedication(s) Ordered:Central Nervous System Agents Sig/Trevor Start time Last Medication Dose Route Stop Time Status Admin Ketorolac 10 MG X1ED STA 04/21 2119 DC Tromethamine PO 04/21 2120 Gastrointestinal Drugs Sig/Trevor Start time Last Medication Dose Route Stop Time Status Admin Metoclopramide HCl 10 MG X1ED STA 04/21 2120 DC PO 04/21 2121 Ondansetron Base 4 MG X1ED STA 04/21 2120 DC PO 04/21 2121 Patient Discharge Departure Vital Signs/ConditionVital SignsFirst Documented: Result Date Time Pulse Ox 98 [...] signs available at the time of this entry have been reviewed. Condition Stable Clinical ImpressionClinical ImpressionPrimary Impression: Migraine Disposition DecisionDischarge )( Discharged to Home Yes )( Time 2155 )( Date 04/21/20 Discharge/Care PlanCounseled Regarding Diagnosis, Prescriptions, Need for follow-upPrescriptionsnaprosynPrescriptions Reviewed Risks, Benefits, Alternative treatmentReferralsNo Primary or Family Physician (PCP/Family) Discharge NoteI have spoken with the patient and/or caregivers. I have explained the patient'scondition, diagnoses and treatment plan based on the information available to meat this time. I have answered the patient's and/or caregiver's questions and addressed any concerns. The patient and/or caregivers have as good an understanding of the patient's diagnosis, condition and treatment plan as can beexpected at this point. The vital signs have been stable. The patient's condition is stable and appropriate for discharge from the emergency department. The patient will pursue further outpatient evaluation with the primary care physician or other designated or consulting physician as outlined in the discharge instructions. The patient and/or caregivers are agreeable to this planof care and follow-up instructions have been explained in detail. The patient and/or caregivers have received these instructions in written format and have expressed an understanding of the discharge instructions. The patient and/or caregivers are aware that any significant change in condition or worsening of symptoms should prompt an immediate return to this or the closest emergency department or a call to 911. at 2158RPT #:[id number] OF REPORTEDEmergen department [id number]:21:00E.[id number] ilable for patient [id number]:58:30 [facility] 2020-04-21 21:21:00 [id number] MtiGKjJEmOztVmgjVWveHQ5d9n6NEiTsXQ7816-02-04T97:2 1:00 [facility] ([facility] PROVIDER REPORTREPORT#:[id number] REPORT STATUS: SignedDATE:04/21/20 TIME: 2120 PATIENT: MIKE SAHNI UNIT #: [id number]#: [id number] ROOM/BED:AGE: 29 SEX: F PCP PHYS: No Primary or Family PhysicianSERVICE AUTHOR: Mel Billy NP * ALL edits or amendments must be made on the electronic/computer document * Mel Billy 04/21/202120:HPI-Headache GeneralConfirmed Patient YesPCPNeurologist in [facility] PresentationChief Complaint Headache, Migraine headacheOnset of Sx (Nursing) Date: 04/21/20 Time: 1930Hx Obtained From PatientSudden in Onset? YesOnset Occurred TodayLocation Parietal LQuality PainfulSeverity: Onset ModerateSeverity: Current ModerateAssociated withReports: Pain. Denies: Fever, Nausea, Photophobia. ContextPregnancy/Sexual Hx Last Menstrual Period 03/18/20 Free Text HPI NotesFree Text HPI [id number] female seen in triage presents with complaint of migraine headache onset 730 this evening. Reports she has a history of migraine headaches from a head injury. States "[facility] will [facility] me Tyl[facility] or ibuprofen to treat the headaches". "I am only allowed so much a day." Last dose of Tylenol was at 3:30 PM Risk-Headache Risk Stratification)( Subarachnoid Hemorrhage Risk factors reviewed)( IC Mass Lesion Risk factors reviewed Review of Systems ROS StatementsAll systems rev neg except as marked. Focused Review of SystemsConstitutionalDenies: Chills, Fever. EyesDenies: Blurred bilat, Discharge bilat, Photophobia. NeurologicReports: Headache. Past Medical History - AdultStated Complaint MIGRAINESAllergiesCoded Allergies:No Known Allergies (03/20/20) Home MedicationsReported MedicationsAMITRIPTYLINE (ELAVIL) 25 MG PO BEDTIME SUMAtriptan (IMITREX) 100 MG PO DAILY ZONISAMIDE (ZONEGRAN) 100 MG PO BID Review of Nursing Notes Rev avail, and agreePast Medical History:Reports: (migraine), Headache disorder. Drug Use Meth/amphetamines, In RecoverySmoking status for patients 13 years old or older: Current every day smoker Physical Exam Vital SignsVital SignsFirst Documented: Result Date Time Pulse Ox 98 [...] 2114 Review of Vital Signs Reviewed Focused PEGeneral/Const General/Const Awake, Alert, No acute distress, Well appearing, Well developed, Well hydrated, Well nourished, Cooperative, Not toxic appearingMS Head Head NormocephalicEyes Eyes PERRL, EOMIEars/Nose/Throat Ears/Nose/Throat Airway patent, Mucous membranes moist, Pharynx NL, Tympanic membs NLMS Neck Neck Supple, No meningismus, Full range of motion, No adenopathy, No swelling, Non-tender, No midline vertebral tendResp/Chest Respiratory/Chest Breath sounds NL, Breath sounds = bilat, No respiratory distress, No wheezingCardiovascular Cardiovascular Heart rate NL, Regular rhythm, Heart sounds NL, Cap refill notdelayed, Peripheral circulation NLAbdomen/GI Abdomen/GI Soft, Non-tender, BS normoactiveSkin Skin Color NL, No rash, Warm, Dry, Intact, Turgor NL, No swellingNeurologic Neurologic Oriented X3, Speech NL, No motor deficits, No sensory deficits, CNII - XII intact, Reflexes equal bilat, Gait NL Interpretation Diagnostics Point of Care TestingPulse Oximetry Pulse Ox % 98 On: Room air Interpretation Interpreted by me, Pulse oximetry normal Time 2113 Re-Evaluation [facility] )( Re-Evaluation/Progress #1Time of Re-Eval 2155)( Re-Eval Status ImprovedPlan Post Re-Eval Plan discharge Headache MDM NoteThe patient presented to the emergency department with a headache. The patient is now resting comfortably and feels better, is alert, talkative, interactive and in no distress. The patient appears well and is able to tolerate PO fluids. The repeat examination is unremarkable and benign. The patient is neurologicallyintact, has a normal mental status, and is ambulatory in the ED. The history, exam, diagnostic testing (if any) and the patient's current condition do not suggest meningitis, stroke, sepsis, subarachnoid hemorrhage, intracranial bleeding, encephalitis, temporal arteritis or other significant pathology to warrant further testing, continued ED treatment, admission, neurological consultation, or other specialist evaluation at this point. The vital signs havebeen stable. The patient's condition is stable and appropriate for discharge. The patient will pursue further outpatient evaluation with the primary care physician or other designated or consulting physician as indicated in the discharge instructions. ED CourseMedication(s) OrderedMedication(s) Ordered:Central Nervous System Agents Sig/Trevor Start time Last Medication Dose Route Stop Time Status Admin Ketorolac 10 MG X1ED STA 04/21 2119 DC 04/21 Tromethamine PO 04/21 Gastrointestinal Drugs Sig/Trevor Start time Last Medication Dose Route Stop Time Status Admin Metoclopramide HCl 10 MG X1ED STA 04/21 2120 DC / PO 04/21 Ondansetron Base 4 MG X1ED STA 04/21 2120 DC 04/21 PO 04/21 Patient Discharge Departure Vital Signs/ConditionVital SignsFirst Documented: Result Date Time Pulse Ox 98 04/21 2114 B/P 114/80 /2113 B/P Mean 91 04/21 2114 O2 Delivery Room air 04/21 2114 Temp 36.9 04/21 2114 Pulse 92 /2113 Resp 20 04/21 2114 Last Documented: Result Date Time Pulse Ox 98 04/21 2114 B/P 114/80 /2113 B/P Mean 91 04/21 2114 O2 Delivery Room air 04/21 2114 Temp 36.9 04/21 2114 Pulse 92 04/21 2114 Resp 20 04/21 2114 All vital signs available at the time of this entry have been reviewed. Condition Stable Clinical ImpressionClinical ImpressionPrimary Impression: Migraine Disposition DecisionDischarge )( Discharged to Home Yes )( Time 2155 )( Date 04/21/20 Discharge/Care PlanCounseled Regarding Diagnosis, Prescriptions, Need for follow-upPrescriptionsnaprosynPrescriptions Reviewed Risks, Benefits, Alternative treatmentReferralsNo Primary or Family Physician (PCP/Family) Discharge NoteI have spoken with the patient and/or caregivers. I have explained the patient'scondition, diagnoses and treatment plan based on the information available to meat this time. I have answered the patient's and/or caregiver's questions and addressed any concerns. The patient and/or caregivers have as good an understanding of the patient's diagnosis, condition and treatment plan as can beexpected at this point. The vital signs have been stable. The patient's condition is stable and appropriate for discharge from the emergency department. The patient will pursue further outpatient evaluation with the primary care physician or other designated or consulting physician as outlined in the discharge instructions. The patient and/or caregivers are agreeable to this planof care and follow-up instructions have been explained in detail. The patient and/or caregivers have received these instructions in written format and have expressed an understanding of the discharge instructions. The patient and/or caregivers are aware that any significant change in condition or worsening of symptoms should prompt an immediate return to this or the closest emergency department or a call to 911. [place] 04/21/206:HPI-Headache GeneralInitial Greet Date/Time 04/21/202113 Patient Discharge Departure Supervising Physician Note MidLv Saw Pt AloneI have reviewed the PA/MANAGER WEB's note and plan of care. I was available for consultation as needed at all times during the patient's visit in the emergency department. I agree with the clinical impression, plan and disposition. at 2158 at 2207RPT #:[id number] OF REPORTEDEmermethodist behavioral hospital department [id number]:21:00E.[id number] ilable for patient [id number]-37X90:08:00 [facility] 2020-04-01 11:29:00 [id number] DSfZmKJgvmpTgWWsBOazksti8LYh+svZ0V1790-81-05J08:2 9:00 [facility] ([facility] PROVIDER REPORTREPORT#:[id number] REPORT STATUS: SignedDATE:04/01/20 TIME: 1129 PATIENT: MIKE SAHNI UNIT #: [id number]#: [id number] ROOM/BED:AGE: 29 SEX: F PCP PHYS: No Primary or Family PhysicianSERVICE AUTHOR: Bernie Kimble MD * ALL edits or amendments must be made on the electronic/computer document * HPI-Headache GeneralInitial Greet Date/Time 04/01/20 1047 PresentationChief Complaint Migraine headacheSudden in Onset? NoSeverity: Onset Mild Free Text HPI NotesFree Text HPI NotesPatient with a history of migraine headaches presents with her typical migraine headache and states she needs a note for the rehab facility to give her her anti-inflammatories. Patient has already been seen by her neurologist last week andstarted on 2 new medications. Patient is currently attempting to get out of it for her migraines. This is being arranged with her neurologist. Patient statesmyriame was here a few days ago and was seen by the ER doctor and written for Fioricet but they will not give that to her at the facility and they have stopped giving her the anti-inflammatories which work for her. Patient states she needs a note for anti-inflammatories to be administered at the facility. Patient denies worst headache of life, denies recent seizure, denies recent headinjury, denies focal neurological deficit, denies any weakness rash or neck pain. Patient states in the past she has had negative CTs and MRIs which showedsome mild brain atrophy. Patient states she is currently not using drugs but was in rehab for EtOH and methamphetamine abuse. Patient with no fever, not worst headache of life, no thunderclap headache. Risk-Headache Risk StratificationStroke Risk factors reviewed, No risk factors Review of Systems ROS StatementsComplete sys rev neg except as marked. Focused Review of SystemsConstitutionalDenies: Chills, Fever, Lethargy. GIDenies: Abdominal pain, Diarrhea, Nausea, Vomiting. MusculoskeletalDenies: Back pain, Extremity pain. SkinDenies: Diaphoresis, Rash. Past Medical History - AdultStated Complaint HEADACHEAllergiesCoded Allergies:No Known Allergies (03/20/20) Home MedicationsReported MedicationsAMITRIPTYLINE (ELAVIL) 25 MG PO BEDTIME SUMAtriptan (IMITREX) 100 MG PO DAILY ZONISAMIDE (ZONEGRAN) 100 MG PO BID Past Medical History:Reports: (migraine). Smoking status for patients 13 years old or older: Current every day smoker Physical Exam Vital SignsVital SignsFirst Documented: Result Date Time Pulse Ox 95 [...] Review of Vital Signs Reviewed, Vital signs abnormal Focused PEMS Head Head Atraumatic, NormocephalicMS Neck Neck Atraumatic, Supple, No meningismus, Full range of motion, No midline vertebral tendNeurologic Neurologic Oriented X3, Speech NL, No motor deficits, No sensory deficits, CNII - XII intact, Reflexes equal bilat, Cerebellar NL, Memory NL, Gait NL Free Text PE NotesFree Text PE Notes General: no distress well-appearing nontoxicHead: atraumatic, normocephalicEENT; PERRLA, EOMIneck: supple, from, no kernigs, no meningismusRespiratory: no shortness of breath, equal breath sounds, no dyspnea, no respiratory distressCV: normal heart rate, regular rhythm, no pedal edema, no calf tendernessGI: no abdominal pain, no pulsatile masses, no guarding, no rebound, no tenderness to palpationSkin: no rash, no petechiaepsych: normal affect, normal eye contact Interpretation Diagnostics Point of Care TestingPulse Oximetry Pulse Ox % 98 On: Room air Interpretation Interpreted by me, Pulse oximetry normal Time 1238 Re-Evaluation MDM )( Re-Evaluation/Progress #1Text/Dict NotePatient improved, normal neuro exam, no new complaints vital stable. Patient verbalized understanding of discharge directions and need for outpatient follow-upTime of Re-Eval 1200 Headache MDM NoteThe patient presented to the emergency department with a headache. The patient is now resting comfortably and feels better, is alert, talkative, interactive and in no distress. The patient appears well and is able to tolerate PO fluids. The repeat examination is unremarkable and benign. The patient is neurologicallyintact, has a normal mental status, and is ambulatory in the ED. The history, exam, diagnostic testing (if any) and the patient's current condition do not suggest meningitis, stroke, sepsis, subarachnoid hemorrhage, intracranial bleeding, encephalitis, temporal arteritis or other significant pathology to warrant further testing, continued ED treatment, admission, neurological consultation, or other specialist evaluation at this point. The vital signs havebeen stable. The patient's condition is stable and appropriate for discharge. The patient will pursue further outpatient evaluation with the primary care physician or other designated or consulting physician as indicated in the discharge instructions. ED CourseMedication(s) OrderedMedication(s) Ordered:Central Nervous System Agents Sig/Trevor Start time Last Medication Dose Route Stop Time Status Admin Ketorolac 60 MG X1ED STA 04/01 1137 DC 04/01 Tromethamine IM 04/01 1138 1204 Gastrointestinal Drugs Sig/Trevor Start time Last Medication Dose Route Stop Time Status Admin Ondansetron HCl 4 MG X1ED STA 04/01 1137 DC 04/01 IM 04/01 1138 1203 Patient Discharge Departure Vital Signs/ConditionVital SignsFirst Documented: Result Date Time Pulse Ox 95 [...] signs available at the time of this entry have been reviewed. Clinical ImpressionClinical ImpressionPrimary Impression: MigraineSecondary Impressions: Chronic pain Disposition DecisionDischarge )( Discharged to Home Yes )( Time 1239 )( Date 04/01/20 Discharge/Care PlanCounseled Regarding Diagnosis, Medication changes, Need for follow-up, When to return to EDPrescriptionsNaprosyn ZofranReferralsNo Primary or Family Physician (PCP/Family) Discharge NoteI have spoken with the patient and/or caregivers. I have explained the patient'scondition, diagnoses and treatment plan based on the information available to meat this time. I have answered the patient's and/or caregiver's questions and addressed any concerns. The patient and/or caregivers have as good an understanding of the patient's diagnosis, condition and treatment plan as can beexpected at this point. The vital signs have been stable. The patient's condition is stable and appropriate for discharge from the emergency department. The patient will pursue further outpatient evaluation with the primary care physician or other designated or consulting physician as outlined in the discharge instructions. The patient and/or caregivers are agreeable to this planof care and follow-up instructions have been explained in detail. The patient and/or caregivers have received these instructions in written format and have expressed an understanding of the discharge instructions. The patient and/or caregivers are aware that any significant change in condition or worsening of symptoms should prompt an immediate return to this or the closest emergency department or a call to 911. at 1240RPT #:[id number] OF REPORTEDEmermethodist behavioral hospital department lzmdvd4126-85-46I99:29:00E.[id number] ilable for patient [id number]-37P77:40:37 [facility] 2020-03-22 12:14:00 [id number]+9gTi+pAvF iTf+zgXY9HEFw11IEG9srvsOWnlgCdFLbC7617-33-58B42:1 4:00 [facility] ([facility] PROVIDER REPORTREPORT#:[id number] REPORT STATUS: SignedDATE:03/22/20 TIME: 1214 PATIENT: MIKE SAHNI UNIT #: [id number]#: [id number] ROOM/BED:AGE: 29 SEX: F PCP PHYS: No Primary or Family PhysicianSERVICE AUTHOR: Mireya Gutierres MD * ALL edits or amendments must be made on the electronic/computer document * HPI-Headache GeneralConfirmed Patient YesInitial Greet Date/Time 03/22/20 1002 PresentationChief Complaint HeadacheSudden in Onset? NoSeverity: Onset Moderate Free Text HPI NotesFree Text HPI [id number] female with history of migraines, on several antianxiety medications, presents for headache and complaints like she may have a seizure. Patient states her previous seizure was 1 week ago although she states that they might be pseudoseizures. She states that she noticed her body shaking however she is conscious and alert the whole time. No seizure today. Patient complaining of moderate to severe headache, nonsudden onset, similar episodes prior. Review of Systems Free Text ROS NotesFree Text ROS NotesReview of systems:-Constitutional: No fever, chills, fatigue-EENT: No runny nose, sore throat-Cardiovascular: No chest pain, palpitations, syncope-Respiratory: No shortness of breath, cough, wheezing-GI: No abdominal pain, nausea, vomiting, diarrhea-: No pain or burning with urination, no blood in the urine-Musculoskeletal: No joint pain, muscle pain, back pain-Skin: No rash, abrasion-Neurologic: Headache-Psychiatric: No suicidal or homicidal ideations Past Medical History - AdultStated Complaint SEIZURE, AZAR, BLURRED VISIONAllergiesCoded Allergies:No Known Allergies (03/20/20) Home MedicationsReported MedicationsAMITRIPTYLINE (ELAVIL) 25 MG PO BEDTIME SUMAtriptan (IMITREX) 100 MG PO DAILY ZONISAMIDE (ZONEGRAN) 100 MG PO BID Pt reports no significant: Past surgical history, Family historyPast Medical History:Reports: (migraine). Smoking status for patients 13 years old or older: Current every day smoker Physical Exam Vital SignsVital SignsFirst Documented: Result Date Time Pulse Ox 98 [...] Pulse 82 03/22 1159 Resp 16 03/22 115 Temp 36.7 03/22 1002 Review of Vital Signs Reviewed Focused PENeurologic Neurologic Oriented X3, Speech NL, No motor deficits, No sensory deficits, CNII - XII intact Free Text PE NotesFree Text PE NotesPhysical exam-General: Awake, alert, well appearing, no acute distress-Head: Atraumatic, normocephalic-EENT: PERRLA, EOMI-Neck: Supple, full range of motion, no meningismus-Respiratory: No respiratory distress, clear to auscultation bilaterally, no wheezing or rhonchi-Cardiovascular: Heart rate normal, regular rhythm, normal heart sounds-Abdomen: Soft, nontender, nondistended, no rebound or guarding-Skin: Color normal, no rash, warm, dry- Neurologic: Oriented x3, normal speech-Psychiatric: Normal mood, normal Affect Interpretation Diagnostics Lab Results InterpretationResultsLaboratory Tests 03/22/20 1007:[Embedded Image Not Available]Laboratory Tests: 03/22 03/22 1159 1007 Chemistry Sodium [...] % (Auto) (23.0 - 38.0 %) 33.3 Burleigh % (Auto) (1.0 - 10.0 %) 9.3 Eos % (Auto) (1.0 - 5.0 %) 3.0 Baso % (Auto) (0.0 - 1.0 %) 0.9 Neut # (Auto) (2.4 - 6.3 K/mm3) 4.6 Lymph # (Auto) (1.2 - 4.0 K/mm3) 2.9 Burleigh # (Auto) (0.0 - 0.6 K/mm3) 0.8 H Eos # (Auto) (0.0 - 0.7 K/MM3) 0.3 Baso # (Auto) (0.0 - 0.2 K/mm3) 0.1 Immature Gran % (0.0 - 0.4 %) 0.3 Immature Gran # (0.00 - 0.07 x10 3/uL) 0.03 Urines Urine Color LT YELLOW Urine Appearance SLHZY Urine pH (5.0 - 9.0) 8.0 Ur Specific Regent (1.000 - 1.030) 1.015 Urine Protein (NEGATIVE mg/dl) NEGATIVE Urine Glucose (UA) (NORMAL mg/dl) NORMAL Urine Ketones (NEGATIVE mg/dl) NEGATIVE Urine Blood (NEGATIVE Benedict/micL) NEGATIVE Urine Nitrite (NEGATIVE) NEGATIVE Urine Bilirubin (NEGATIVE mg/dL) NEGATIVE Urine Urobilinogen (NORMAL mg/dl) NORMAL Ur Leukocyte Esterase (NEGATIVE Palmer/micL) NEGATIVE Urine RBC (0 - 3 RBC/HPF) NONE SEEN Urine WBC (NONE WBC/HPF) 0-3 Ur Epithelial Cells (0 - 3 EPI/HPF) 10-15 H Amorphous Sediment (NONE) FEW Urine Bacteria (NONE) FEW Urine HCG, Qual (NEGATIVE) NEGATIVE Lab StatementLaboratory studies reviewed and considered in the medical decision-making. Point of Care TestingPulse Oximetry Pulse Ox % 98 On: Room air Interpretation Interpreted by me, Pulse oximetry normal Time 1002 Re-Evaluation MDM Free Text MDM NotesFree Text MDM [id number] female with complaints of migraine. Will obtain basic lab work, test and administer migraine cocktail )( Re-Evaluation/Progress #1Text/Dict NoteHeadache significantly improved after migraine cocktail. Patient will be discharged with Fioricet. She is comfortable with discharge, follow-up instructions and return precautions provided.Time of Re-Eval 1200)( Re-Eval Status Improved ED CourseMedication(s) OrderedMedication(s) Ordered:Central Nervous System Agents Sig/Trevor Start time Last Medication Dose Route Stop Time Status Admin Ketorolac 30 MG X1ED STA 03/22 1055 DC 03/22 Tromethamine IV 03/22 1056 1114 Gastrointestinal Drugs Sig/Trevor Start time Last Medication Dose Route Stop Time Status Admin Metoclopramide HCl 10 MG X1ED STA 03/22 1055 DC 03/22 IV 03/22 1056 1113 Patient Discharge Departure Vital Signs/ConditionVital SignsFirst Documented: Result Date Time Pulse Ox 98 [...] signs available at the time of this entry have been reviewed. Clinical ImpressionClinical ImpressionPrimary Impression: Migraine Disposition DecisionDischarge )( Discharged to Home Yes )( Time 1214 )( Date 03/22/20 Discharge/Care PlanCounseled Regarding Diagnosis, Lab results, Prescriptions, Need for follow-up, When to return to EDPrescriptionsfioricetReferralsNo Primary or Family Physician (PCP/Family) Discharge NoteI have spoken with the patient and/or caregivers. I have explained the patient'scondition, diagnoses and treatment plan based on the information available to meat this time. I have answered the patient's and/or caregiver's questions and addressed any concerns. The patient and/or caregivers have as good an understanding of the patient's diagnosis, condition and treatment plan as can beexpected at this point. The vital signs have been stable. The patient's condition is stable and appropriate for discharge from the emergency department. The patient will pursue further outpatient evaluation with the primary care physician or other designated or consulting physician as outlined in the discharge instructions. The patient and/or caregivers are agreeable to this planof care and follow-up instructions have been explained in detail. The patient and/or caregivers have received these instructions in written format and have expressed an understanding of the discharge instructions. The patient and/or caregivers are aware that any significant change in condition or worsening of symptoms should prompt an immediate return to this or the closest emergency department or a call to 911. at 1447RPT #:[id number] OF REPORTEDEmermethodist behavioral hospital department [id number]:14:00E.[id number] ilable for patient owhtPIHFYILEZVBPCW9112-73-34R01:47:53 [facility] 2020-03-20 23:09:00 [id number]/[id number]+kg8426-11-99K26:0 9:00 [facility] ([facility] PROVIDER REPORTREPORT#:[id number] REPORT STATUS: SignedDATE:03/20/20 TIME: 2308 PATIENT: MIKE SAHNI UNIT #: [id number]#: [id number] ROOM/BED:AGE: 29 SEX: F PCP PHYS: No Primary or Family PhysicianSERVICE AUTHOR: Ihsan Duran MD * ALL edits or amendments must be made on the electronic/computer document * HPI-Medical Clearance GeneralInitial Greet Date/Time 03/20/20 1371 PresentationChief Complaint MEDICATION INSTRUCTIONS Free Text HPI NotesFree Text HPI [id number]-frh female with history of headaches presents emergency department from rehab requesting documentation to provide to her rehab facilities caretakers stating the proper dose for ibuprofen in a day for headache. 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 Review of Systems ROS StatementsAll systems rev neg except as marked. Focused Review of SystemsNeurologicReports: Headache. Past Medical History - AdultStated Complaint NEEDS MED FOR HEADACHE TO PREVENT SEIZURESAllergiesCoded Allergies:No Known Allergies (03/20/20) Smoking status for patients 13 years old or older: Current every day smoker Physical Exam Vital SignsVital SignsFirst Documented: Result Date Time Pulse Ox 99 06/ 2240 B/P 117/82 06/ 2240 B/P Mean 93 06/04 2240 O2 Delivery Room air 03/20 2240 Temp 36.8 06/ 2240 Pulse 82 06/ 2240 Resp 18 / 2240 Last Documented: Result Date Time Pulse Ox 99 06/ 2240 B/P 117/82 / 2240 B/P Mean 93 06/04 2240 O2 Delivery Room air / 2240 Temp 36.8 06/04 2240 Pulse 82 06/ 2240 Resp 18 03/20 2240 Review of Vital Signs Reviewed, Vital signs normal Focused PEGeneral/Const General/Const Awake, Alert, Well appearing, Well developed, Well hydrated, CooperativeEyes Eyes PERRLResp/Chest Respiratory/Chest Breath sounds NL, Breath sounds = bilat, No respiratory distress, No rales, No rhonchi, No wheezingCardiovascular Cardiovascular Heart rate NL, Regular rhythm, Heart sounds NL, Peripheral circulation NLAbdomen/GI Abdomen/GI Soft, Non-tender, No guarding, No reboundNeurologic Neurologic Oriented X3, Speech NL, No motor deficits, No sensory deficitsPsychiatric Psychiatric Affect NL, Mood NL, Thought content NL Re-Evaluation MDM Free Text MDM NotesFree Text MDM Notes29 female presents with request to have medication instruction provided for rehab caretakers DDX includes not limited to medical clearance, medication instruction, medication dosage information At this time the patient will be discharged. She is provided with information to bring back to her facility stating she can take 600 mg every 6 hours and not to exceed more than 300 mg in 24HR PERIOD. Patient Discharge Departure Vital Signs/ConditionVital SignsFirst Documented: Result Date Time Pulse Ox 99 / 2240 B/P 117/82 06/ 2240 B/P Mean 93 /04 2240 O2 Delivery Room air / 2240 Temp 36.8 06/ 2240 Pulse 82 06/ 2240 Resp 18 03/20 2240 Last Documented: Result Date Time Pulse Ox 99 06/ 2240 B/P 117/82 06/ 2240 B/P Mean 93 / 2240 O2 Delivery Room air 06/ 2240 Temp 36.8 06/ 2240 Pulse 82 06/ 2240 Resp 18 03/20 2240 All vital signs available at the time of this entry have been reviewed. Condition Stable Clinical ImpressionClinical ImpressionPrimary Impression: Medication management Disposition DecisionOther LAWRENCE-screened discharged Yes Discharge/Care PlanReferralsNo Primary or Family Physician (PCP/Family) at 2316RPT #:[id number] OF REPORTEDEmergency department [id number]:09:00E.[id number] ilable for patient lurtGPLFPWTNYUUFFF8632-86-05R71:17:07 [facility] 2020-03-20 23:09:00 [id number]+[id number]/1084-63-26X73:0 9:00 [facility] ([facility] PROVID[facility] REPORTREPORT#:[id number] REPORT STATUS: SignedDATE:03/20/20 TIME: 2308 PATIENT: MIKE SAHNI UNIT #: [id number]#: [id number] ROOM/BED:AGE: 29 SEX: F PCP PHYS: No Primary or Family PhysicianSERVICE AUTHOR: Ihsan Duran MD * ALL edits or amendments must be made on the electronic/computer document * See AddendumHPI-Medical Clearance GeneralInitial Greet Date/Time 03/20/201 PresentationChief Complaint MEDICATION INSTRUCTIONS Free Text HPI NotesFree Text HPI [id number] female with history of headaches presents emergency department from rehab requesting documentation to provide to her rehab facilities caretakers stating the proper dose for ibuprofen in a day for headache. 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 Review of Systems ROS StatementsAll systems rev neg except as marked. Focused Review of SystemsNeurologicReports: Headache. Past Medical History - AdultStated Complaint NEEDS MED FOR HEADACHE TO PREVENT SEIZURESAllergiesCoded Allergies:No Known Allergies (03/20/20) Smoking status for patients 13 years old or older: Current every day smoker Physical Exam Vital SignsVital SignsFirst Documented: Result Date Time Pulse Ox 99 06/ 2240 B/P 117/82 06/ 2240 B/P Mean 93 06/04 2240 O2 Delivery Room air 06/ 2240 Temp 36.8 06/ 2240 Pulse 82 06/ 2240 Resp 18 / 2240 Last Documented: Result Date Time Pulse Ox 99 06/ 2240 B/P 117/82 06/ 2240 B/P Mean 93 06/04 2240 O2 Delivery Room air 06/ 2240 Temp 36.8 06/04 2240 Pulse 82 06/ 2240 Resp 18 06/ 2240 Review of Vital Signs Reviewed, Vital signs normal Focused PEGeneral/Const General/Const Awake, Alert, Well appearing, Well developed, Well hydrated, CooperativeEyes Eyes PERRLResp/Chest Respiratory/Chest Breath sounds NL, Breath sounds = bilat, No respiratory distress, No rales, No rhonchi, No wheezingCardiovascular Cardiovascular Heart rate NL, Regular rhythm, Heart sounds NL, Peripheral circulation NLAbdomen/GI Abdomen/GI Soft, Non-tender, No guarding, No reboundNeurologic Neurologic Oriented X3, Speech NL, No motor deficits, No sensory deficitsPsychiatric Psychiatric Affect NL, Mood NL, Thought content NL Re-Evaluation MDM Free Text MDM NotesFree Text MDM Notes29 female presents with request to have medication instruction provided for rehab caretakers DDX includes not limited to medical clearance, medication instruction, medication dosage information At this time the patient will be discharged. She is provided with information to bring back to her facility stating she can take 600 mg every 6 hours and not to exceed more than 300 mg in 24HR PERIOD. Patient Discharge Departure Vital Signs/ConditionVital SignsFirst Documented: Result Date Time Pulse Ox 99 03/20 2240 B/P 117/82 / 2240 B/P Mean 93 06/04 2240 O2 Delivery Room air 03/20 2240 Temp 36.8 06/ 2240 Pulse 82 06/ 2240 Resp 18 03/20 2240 Last Documented: Result Date Time Pulse Ox 99 03/20 2240 B/P 117/82 06/ 2240 B/P Mean 93 06/ 2240 O2 Delivery Room air 03/20 2240 Temp 36.8 / 2240 Pulse 82 03/20 2240 Resp 18 03/20 2240 All vital signs available at the time of this entry have been reviewed. Condition Stable Clinical ImpressionClinical ImpressionPrimary Impression: Medication management Disposition DecisionOther LAWRENCE-screened discharged Yes Discharge/Care PlanReferralsNo Primary or Family Physician (PCP/Family) at 2316 Addendum 1: 05/06/20 2157 by Ihsan Duran MD Provider Time Updates Greet Date/TimeDate/Time Seen by Provider 03/20/20 224 DispositionOther )( Time 2306 )( Date 03/20/20 LAWRENCE-screened discharged Yes at 2157RPT #:[id number] OF REPORTEDEmergency department [id number]:09:00E.[id number] ilable for patient [id number]:58:04 [facility]
[2023-12-11 13:12] LABS: Absolute Lymphocytes (CBC) 2.7 K/uL (0.7-4.9); Hematocrit 42.7 % (36.0-45.0); MCV 87.8 fL (80-100); MPV 6.8 fL (7.6-11.3); Platelets 504 thou/uL (152-406); RBC Red Blood Cell Count 4.86 M/uL (3.86-4.86)
[2023-12-11 13:27] LABS: Albumin 3.1 g/dL (3.4-5.0); Bilirubin Total 0.2 mg/dL (0.2-1.0); Potassium 3.8 mEq/L (3.5-5.1); Protein, Total 6.9 g/dL (6.4-8.2)
[2023-12-11 13:38] LABS: Specific Gravity 1.029 (1.005-1.030)
[2023-12-11 13:59] LABS: Calcium Oxalate Crystals- Ur Few /HPF (None Seen); Specific Gravity 1.028 (1.005-1.030); Transitional Epithelial <5 /HPF (None Seen); Urine Bacteria <20 /HPF (<20); Urine Bilirubin NEGATIVE (Negative); Urine Blood 3+ (OVER) (Negative); Urine Clarity Extremely Turbid (Clear); Urine Color Yellow (Yellow); Urine Glucose NEGATIVE (Negative); Urine Mucus Slight /HPF (None Seen); Urine Protein 1+ (Negative); Urine RBC >50 /HPF (None Seen); Urine Urobilinogen Normal (Normal); Urine WBC Clump Rare /HPF (None Seen); Urine pH 6.5 (5.0-7.0)
--- NOTE | 2023-12-11 14:17 | RAD REPORT ---
EXAM DESCRIPTION: CT - Stone Protocol - 12/11/2023 1:51 pm CLINICAL HISTORY: Abdominal pain. Flank pain COMPARISON: 2016 TECHNIQUE: Computed axial tomography of the abdomen pelvis was obtained without oral or IV contrast. Lack of IV and oral contrast limits evaluation of solid organs, appendix, bowel, and vessels. Dougherty l reformatted images were obtained and reviewed. All CT scans are performed using dose optimization technique as appropriate and may include automated exposure control or mA/KV adjustment according to patient size. FINDINGS: A renal calculus is not seen. An ureteral calculus is not noted. A bladder calculus is not present. No hydronephrosis The liver, spleen, pancreas and adrenals appear grossly normal There is no evidence of diverticulitis. The appendix appears normal No adnexal mass Small umbilical hernia IMPRESSION: Negative for a genitourinary calculus
--- NOTE | 2023-12-11 14:39 | EDPHYS ---
Physician Documentation [facility] Name: Judy Ivory Age: 32 yrs Sex: Female : 1990 Arrival Date: 12/11/2023 Time: 12:14 Bed 13 Private MD: DENNISE Physician Larry Rodríguez HPI: 12/11 13:05 This 32 yrs old Female presents to ER via Ambulatory with complaints of samuel Possible Kidney Stone. 13:05 The patient presents with abdominal pain right lower quadrant. Onset: The samuel symptoms/episode began/occurred today, yesterday. The patient complains of pain in the right mid back and right low back. The pain radiates to the right mid back and right low back. Onset: The symptoms/episode began/occurred 1 day(s) ago. Modifying factors: The symptoms are alleviated by nothing. the symptoms are aggravated by nothing. Associated signs and symptoms: The patient has no apparent associated signs or symptoms. Modifying factors: The symptoms are alleviated by nothing, the symptoms are aggravated by nothing. Severity of pain: At its worst the pain was moderate in the emergency department the pain is unchanged. 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 - Social history:: Smoking status: Patient reports the use of cigarette tobacco products, smokes one-half pack cigarettes per day, Reported history of juuling and/or vaping. - Family history:: not pertinent. ROS: 13:05 Constitutional: Negative for fever, chills, and weight loss, Eyes: Negative for injury, samuel pain, redness, and discharge, ENT: Negative for injury, pain, and discharge, Neck: Negative for injury, pain, and swelling, Cardiovascular: Negative for chest pain, palpitations, and edema, Respiratory: Negative for shortness of breath, cough, wheezing, and pleuritic chest pain, Abdomen/GI: Negative for abdominal pain, nausea, vomiting, diarrhea, and constipation, Back: Negative for injury and pain, : Negative for injury, bleeding, discharge, and swelling, MS/Extremity: Negative for injury and deformity, Skin: Negative for injury, rash, and discoloration, Neuro: Negative for headache, weakness, numbness, tingling, and seizure, Psych: Negative for depression, anxiety, suicide ideation, homicidal ideation, and hallucinations, Allergy/Immunology: Negative for hives, rash, and allergies, Endocrine: Negative for neck swelling, polydipsia, polyuria, polyphagia, and marked weight changes, Hematologic/Lymphatic: Negative for swollen nodes, abnormal bleeding, and unusual bruising, Exam: 13:05 Constitutional: This is a well developed, well nourished patient who is awake, alert, samuel and in no acute distress. Head/Face: Normocephalic, atraumatic. Eyes: Pupils equal round and reactive to light, extra-ocular motions intact. Lids and lashes normal. Conjunctiva and sclera are non-icteric and not injected. Cornea within normal limits. Periorbital areas with no swelling, redness, or edema. ENT: Nares patent. No nasal discharge, no septal abnormalities noted. Tympanic membranes are normal and external auditory canals are clear. Oropharynx with no redness, swelling, or masses, exudates, or evidence of obstruction, uvula midline. Mucous membranes moist. Neck: Trachea midline, no thyromegaly or masses palpated, and no cervical lymphadenopathy. Supple, full range of motion without nuchal rigidity, or vertebral point tenderness. No Meningismus. Chest/axilla: Normal chest wall appearance and motion. Nontender with no deformity. No lesions are appreciated. Cardiovascular: Regular rate and rhythm with a normal S1 and S2. No gallops, murmurs, or rubs. Normal PMI, no JVD. No pulse deficits. Respiratory: Lungs have equal breath sounds bilaterally, clear to auscultation and percussion. No rales, rhonchi or wheezes noted. No increased work of breathing, no retractions or nasal flaring. Abdomen/GI: Soft, non-tender, with normal bowel sounds. No distension or tympany. No guarding or rebound. No evidence of tenderness throughout. Back: No spinal tenderness. No costovertebral tenderness. Full range of motion. Skin: Warm, dry with normal turgor. Normal color with no rashes, no lesions, and no evidence of cellulitis. MS/ Extremity: Pulses equal, no cyanosis. Neurovascular intact. Full, normal range of motion. Neuro: Awake and alert, GCS 15, oriented to person, place, time, and situation. Cranial nerves II-XII grossly intact. Motor strength 5/5 in all extremities. Sensory grossly intact. Cerebellar exam normal. Normal gait. Psych: Awake, alert, with orientation to person, place and time. Behavior, mood, and affect are within normal limits. Vital Signs: 12:29 BP 116 / 78; Pulse 102; Resp 18; Temp 98.2(O); Pulse Ox 97% on R/A; Weight 72.57 kg; nj1 Height 5 ft. 1 in. ; Pain 8/10; 14:03 BP 115 / 97; Pulse 100; Resp 18; Pulse Ox 100% ; cp4 15:00 BP 118 / 82; Pulse 99; Resp 18; Pulse Ox 99% ; cp4 12:29 Body Mass Index 30.23 (72.57 kg, 154.94 cm) [facility] 12:29 Pain Scale: Adult nj1 MDM: 12:18 Patient medically screened. [facility] 13:08 Differential diagnosis: nephrolithiasis, pyelonephritis, UTI, diverticulitis, samuel pancreatitis, bowel obstruction, diverticulitis, Mesenteric ischemia or infarction, non-specific abd pain. Data reviewed: vital signs, nurses notes, lab test result(s), radiologic studies, CT scan. Consideration of Admission/Observation Escalation of care including admission/observation considered. I considered the following discharge prescriptions or medication management in the emergency department Medications were administered in the Emergency Department. See MAR. Independent interpretation of the following test(s) in the Emergency Department CT Scan: My interpretation is CT STONE. Test considered but Not performed: Ultrasound NO BILATERAL RENAL USG. Care significantly affected by the following chronic conditions: SEIZURE, MIGRAINES. 12/11 12:19 Order name: CBC with Diff; Complete Time: 14:37 [facility] 12/11 12:19 Order name: CMP; Complete Time: 14:37 [facility] 12/11 12:19 Order name: Lipase; Complete Time: 14:37 [facility] 12/11 12:19 Order name: Test, Urine; Complete Time: 14:37 [facility] 12/11 12:19 Order name: Urinalysis w/ reflexes; Complete Time: 14:37 [facility] 12/11 14:07 Order name: Urine Culture EDDE 12/11 12:19 Order name: CT Stone Protocol; Complete Time: 14:37 [facility] 12/11 12:19 Order name: IV Saline Lock; Complete Time: 12:50 [facility] 12/11 12:19 Order name: Labs collected and sent; Complete Time: 12:50 [facility] Administered Medications: 12:59 Drug: NS 0.9% IV 1000 ml IV at 1 bolus Per protocol; 1000 mL bolus Route: IV; Rate: 1 cp4 bolus; Site: right antecubital; 15:00 Follow up: Response: No adverse reaction; IV Status: Completed infusion cp4 12:59 Drug: Ondansetron IVP 4 mg IVP once; over 2 minutes Route: IVP; Site: right antecubital;cp4 15:35 Follow up: Response: No adverse reaction cp4 12:59 Drug: morphine IVP or IV 4 mg IVP once over 4 mins Route: IVP; Infused Over: 4 mins; cp4 Site: right antecubital; 15:35 Follow up: Response: No adverse reaction cp4 14:53 Drug: Rocephin IV 1 grams IV at per protocol once; Given slow IV push per pharmacy cp4 instructions Route: IV; Rate: per protocol; Site: right antecubital; 15:00 Follow up: Response: No adverse reaction; IV Status: Completed infusion cp4 14:53 Drug: Ciprofloxacin PO 500 mg PO once Route: PO; cp4 15:35 Follow up: Response: No adverse reaction cp4 15:33 Not Given (Patient Refused): TORadol - [id number] mg IVP once cp4 Disposition Summary: 12/11/23 14:38 Discharge Ordered Notes: Location: Home [facility] Problem: new samuel Symptoms: have improved samuel Condition: Stable samuel Diagnosis - Abdominal pain, unspecified samuel - UTI/ Urinary tract infection, site not specified samuel Followup: samuel - With: Private Physician - When: 2 - 3 days - Reason: Recheck today's complaints, Continuance of care, Re-evaluation by your physician Discharge Instructions: - Discharge Summary Sheet samuel - Abdominal Pain, Adult samuel - Dysuria samuel - Urinary Tract Infection, Adult samuel - Urinary Tract Infection, Adult, [id number] [facility] Forms: - Medication Reconciliation Form samuel - Thank You Letter samuel - Antibiotic Education samuel - Prescription Opioid Use samuel - Patient Portal Instructions [facility] - Leadership Thank You Letter [facility] Prescriptions: - diclofenac sodium 50 mg Oral tablet, delayed release (enteric coated) - take 1 tablet ORAL route 2 times per day; 20 tablet; Refills: 0, Product samuel Selection Permitted - Pyridium 200 mg Oral Tablet - take 1 tablet ORAL route every 8 hours for 3 days; 9 tablet; Refills: 0, [facility] Product Selection Permitted - Zofran 4 mg Oral Tablet - take 1 tablet ORAL route every 12 hours As needed; 20 tablet; Refills: 0, [facility] Product Selection Permitted - Cipro 500 mg Oral Tablet - take 1 tablet ORAL route every 12 hours for 7 days; 14 tablet; Refills: 0, [facility] Product Selection Permitted - Bactrim DS 800-160 mg Oral tablet - take 1 tablet ORAL route every 12 hours for 5 days; 10 tablet; Refills: 0, [facility] Product Selection Permitted - dicyclomine 20 mg Oral tablet - take 1 tablet ORAL route 4 times per day; 28 tablet; Refills: 0, Product samuel Selection Permitted Signatures: Dispatcher [employer] Larry Yeung MD MD cha Jaco, Norma, RN RN nj1 Yenifer Arrieta 4
--- NOTE | 2023-12-11 14:39 | ER ---
Nurse's Notes [facility] Name: Judy Ivory Age: 32 yrs Sex: Female : 1990 Arrival Date: 12/11/2023 Time: 12:14 Bed 13 Private MD: Diagnosis: Abdominal pain, unspecified;UTI/ Urinary tract infection, site not specified Presentation: 12/11 12:29 Chief complaint: Patient states: "kidney stones". CO right groin pain and dysuria since nj1 yesterday, getting worse. Coronavirus screen: Vaccine status: Patient reports being unvaccinated. Ebola Screen: Patient denies travel to an Ebola-affected area in the 21 days before illness onset. Initial Sepsis Screen: Does the patient meet any 2 criteria? HR > 90 bpm. No. Patient's initial sepsis screen is negative. Does the patient have a suspected source of infection? No. Patient's initial sepsis screen is negative. Risk Assessment: Do you want to hurt yourself or someone else? Patient reports no desire to harm self or others. Onset of symptoms was December 10, 2023. 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 - Social history:: Smoking status: Patient reports the use of cigarette tobacco products, smokes one-half pack cigarettes per day, Reported history of juuling and/or vaping. - Family history:: not pertinent. Screenin:45 [facility] ED Fall Risk Assessment (Adult) History of falling in the last 3 months, cp4 including since admission No falls in past 3 months (0 pts) Confusion or Disorientation No (0 pts) Intoxicated or Sedated No (0 pts) Impaired Gait No (0 pts) Mobility Assist Device Used No (0 pt) Altered Elimination No (0 pt) Score/Fall Risk Level 0 - 2 = Low Risk Oriented to surroundings, Maintained a safe environment, Educated pt \\T\\ family on fall prevention, incl call for assistance when getting out of bed, Assessed \\T\\ reinforced patient's understanding of fall precautions, Hourly rounding (assess needs \\T\\ fall precautionary measures) done. Abuse screen: Denies threats or abuse. Nutritional screening: No deficits noted. Tuberculosis screening: No symptoms or risk factors identified. Assessment: 13:45 General: Appears in no apparent distress. Behavior is calm, cooperative, appropriate cp4 for age. Pain: Complains of pain in abdomen. GI: Bowel sounds present X 4 quads. Abd is soft and non tender X 4 quads. Vital Signs: 12:29 BP 116 / 78; Pulse 102; Resp 18; Temp 98.2(O); Pulse Ox 97% on R/A; Weight 72.57 kg; nj1 Height 5 ft. 1 in. ; Pain 8/10; 14:03 BP 115 / 97; Pulse 100; Resp 18; Pulse Ox 100% ; cp4 15:00 BP 118 / 82; Pulse 99; Resp 18; Pulse Ox 99% ; cp4 12:29 Body Mass Index 30.23 (72.57 kg, 154.94 cm) nj1 12:29 Pain Scale: Adult sd1 ED Course: 12:17 Patient arrived in ED. rg4 12:18 Larry Rodríguez MD is Attending Physician. samuel 12:31 Yenifer Arrieta is Primary Nurse. cp4 12:34 Triage completed. nj1 12:34 Arm band placed on right wrist. nj1 12:50 CBC with Diff Sent. cp4 12:50 CMP Sent. cp4 12:50 Lipase Sent. cp4 13:45 Bed in low position. Call light in reach. Side rails up X 1. cp4 13:45 No provider procedures requiring assistance completed. Inserted saline lock: 20 gauge cp4 in left antecubital area, using aseptic technique. Blood collected. 13:52 CT Stone Protocol In Process Unspecified. EDMS 15:33 Provided Education on: uti. cp4 15:33 intact, bleeding controlled, No redness/swelling at site. Pressure dressing applied. cp4 Administered Medications: 12:59 Drug: NS 0.9% IV 1000 ml IV at 1 bolus Per protocol; 1000 mL bolus Route: IV; Rate: 1 cp4 bolus; Site: right antecubital; 15:00 Follow up: Response: No adverse reaction; IV Status: Completed infusion cp4 12:59 Drug: Ondansetron IVP 4 mg IVP once; over 2 minutes Route: IVP; Site: right antecubital;cp4 15:35 Follow up: Response: No adverse reaction cp4 12:59 Drug: morphine IVP or IV 4 mg IVP once over 4 mins Route: IVP; Infused Over: 4 mins; cp4 Site: right antecubital; 15:35 Follow up: Response: No adverse reaction cp4 14:53 Drug: Rocephin IV 1 grams IV at per protocol once; Given slow IV push per pharmacy cp4 instructions Route: IV; Rate: per protocol; Site: right antecubital; 15:00 Follow up: Response: No adverse reaction; IV Status: Completed infusion cp4 14:53 Drug: Ciprofloxacin PO 500 mg PO once Route: PO; cp4 15:35 Follow up: Response: No adverse reaction cp4 15:33 Not Given (Patient Refused): TORadol - [id number] mg IVP once cp4 Medication: 13:45 VIS not applicable for this client. cp4 Outcome: 14:38 Discharge ordered by MD. baker 15:33 Discharged to home ambulatory, cp4 15:33 Condition: stable 15:33 Discharge instructions given to patient, Instructed on discharge instructions, follow up and referral plans. medication usage, Demonstrated understanding of instructions, follow-up care, medications, Prescriptions given X 5 15:36 Patient left the ED. cp4 Signatures: Dispatcher [employer] EDLarry Singleton MD MD cha Garcia, Rubi rg4 Simran Govea, PEEWEE RN [email or web address] Yenifer Arrieta cp4
[2023-12-11 16:00] VITALS: BP 118/82; TEMP 98.2; O2SAT 99
== END ==
LOC: ER 12:14
DX: N39.0 Urinary tract infection, site not specified (principal); F17.210 Nicotine dependence, cigarettes, uncomplicated; Z88.5 Allergy status to narcotic agent; Z28.310 Unvaccinated for COVID-19
CPT/HCPCS: 87088; 85025; 81001; 87086; 36415; 81025; 83690; 80053; 76377; 74176; J2405; J7030; J0696; 96361; 96374; 96375; 99284

== ENCOUNTER → 2024-01-08 | Emergency (ER) | payer OTHER ==
[~2024-01-08] MED LIST changes: -CEFTRIAXONE 1000 MG/VIAL ONE; -CIPROFLOXACIN HCL 500 MG TAB ONE; +DIPHENHYDRAMINE 50 MG/ML VIAL ONE; +KETOROLAC 30 MG/ML INJ ONE; +METOCLOPRAMIDE 10 MG/2mL INJ ONE; -MORPHINE 4 MG/ML SYR ONE; +Magnesium Sulfate 2gm IVPB 2 G/50 ML BAG IV ONE; -ONDANSETRON 4 MG/2 ML VIAL ONE
--- OUTSIDE RECORDS SUMMARY | 2024-01-08 00:43 | XMS REPORT | Continuity of Care Document ---
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 M9OVzF9rGMbMptFRF+c1NVegRiWze3Zlq/7484-51-92N03:0 9:00 [facility] ([facility] REPORTREPORT#:[id number] REPORT STATUS: SignedDATE:03/20/20 TIME: 2308 PATIENT: MIKE SAHNI UNIT #: [id number]#: [id number] ROOM/BED:AGE: 29 SEX: F PCP PHYS: No Primary or Family PhysicianSERVICE AUTHOR: Ihsan Duran MD * ALL edits or amendments must be made on the electronic/computer document * See AddendumHPI-Medical Clearance GeneralInitial Greet Date/Time 03/20/202240 PresentationChief Complaint MEDICATION INSTRUCTIONS Free Text HPI NotesFree Text HPI Qbnap31-aruo-piv female with history of headaches presents emergency [...] Time Updates Greet Date/TimeDate/Time Seen by Provider 03/20/202240 DispositionOther )( Time 2306 )( Date 03/20/20 LAWRENCE-screened discharged Yes at 2157RPT #:[id number] OF REPORTEDEmergency department kzrozs1845-47-38A95:09:00E.[id number] ilable for patient tdedZUEWDRJVWLOZEH4230-26-07E60:58:04 [facility]
--- NOTE | 2024-01-08 02:31 | ER ---
Nurse's Notes [facility] Name: Judy Ivory Age: 33 yrs Sex: Female : 1990 Arrival Date: 01/08/2024 Time: 00:38 Bed 20 Private MD: Diagnosis: Migraine without aura, not intractable Presentation: 01/07 01:05 Chief complaint: Patient states: migraine since 1600. Excedrin and Advil PM at 2300 lg3 with no relief. Coronavirus screen: Client denies travel out of the [place] in the last 14 days. At this time, the client does not indicate any symptoms associated with coronavirus-19. Ebola Screen: No symptoms or risks identified at this time. Initial Sepsis Screen: Does the patient meet any 2 criteria? No. Patient's initial sepsis screen is negative. Does the patient have a suspected source of infection? No. Patient's initial sepsis screen is negative. Risk Assessment: Do you want to hurt yourself or someone else? Patient reports no desire to harm self or others. Onset of symptoms was January 07, 2024. 01:05 Method Of Arrival: Ambulatory lg3 01:05 Acuity: NICOLETTE 4 lg3 Triage Assessment: 01:08 Headache History: The patient has had previous headaches and this one is similar to lg3 previous episodes. General: Appears in no apparent distress. uncomfortable, Behavior is calm, cooperative. Pain: Complains of pain in head Pain does not radiate. Pain currently is 10 out of 10 on a pain scale. Pain began 1 day ago. Also complains of photophobia. EENT: No deficits noted. No signs and/or symptoms were reported regarding the EENT system. Neuro: No deficits noted. [place] Agitation-Sedation Scale (RASS): 0 - Alert and Calm Level of Consciousness is awake, alert, obeys commands, Oriented to person, place, time, situation, Reports headache. Cardiovascular: No deficits noted. Denies chest pain, shortness of breath, Capillary refill < 3 seconds Clubbing of nail beds is absent JVD is absent Patient's skin is warm and dry. Respiratory: No deficits noted. Airway is patent Respiratory effort is even, unlabored, Respiratory pattern is regular, symmetrical. GI: No deficits noted. No signs and/or symptoms were reported involving the gastrointestinal system. : No deficits noted. No signs and/or symptoms were reported regarding the genitourinary system. Derm: No deficits noted. No signs and/or symptoms reported regarding the dermatologic system. Skin is intact, is healthy with good turgor, Skin is dry, Skin is normal, Skin temperature is warm. Musculoskeletal: No deficits noted. No signs and/or symptoms reported regarding the musculoskeletal system. Circulation, motion, and sensation intact. Range of motion: intact in all extremities. 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 Flu vaccine is not up to date. - Social history:: Smoking status: Patient reports the use of cigarette tobacco products, smokes one-half pack cigarettes per day, Patient/guardian denies using alcohol, street drugs. - Family history:: not pertinent. Screenin:14 [facility] ED Fall Risk Assessment (Adult) History of falling in the last 3 months, km8 including since admission No falls in past 3 months (0 pts) Confusion or Disorientation No (0 pts) Intoxicated or Sedated No (0 pts) Impaired Gait No (0 pts) Mobility Assist Device Used No (0 pt) Altered Elimination No (0 pt) Score/Fall Risk Level 0 - 2 = Low Risk Oriented to surroundings, Maintained a safe environment, Educated pt \T\ family on fall prevention, incl call for assistance when getting out of bed, Assessed \T\ reinforced patient's understanding of fall precautions. Abuse screen: Denies threats or abuse. Denies injuries from another. Nutritional screening: No deficits noted. Tuberculosis screening: No symptoms or risk factors identified. Assessment: :14 General: Appears in no apparent distress. uncomfortable, Behavior is cooperative, km8 appropriate for age. Pain: Complains of pain in left temporal area Pain currently is 10 out of 10 on a pain scale. Quality of pain is described as sharp, Pain began Is intermittent. Neuro: Level of Consciousness is awake, alert, obeys commands, Oriented to person, place, time, situation, Reports headache Denies blurred vision dizziness. Cardiovascular: Denies chest pain, shortness of breath, Patient's skin is warm and dry. Respiratory: Airway is patent Respiratory effort is even, unlabored, Respiratory pattern is regular, symmetrical. GI: No signs and/or symptoms were reported involving the gastrointestinal system. : No signs and/or symptoms were reported regarding the genitourinary system. EENT: No signs and/or symptoms were reported regarding the EENT system. Derm: No signs and/or symptoms reported regarding the dermatologic system. Skin is intact, is healthy with good turgor, Skin is dry, Skin is pink, warm \T\ dry. Skin temperature is warm. Musculoskeletal: No signs and/or symptoms reported regarding the musculoskeletal system. Range of motion: intact in all extremities. 02:03 Reassessment: Patient appears in no apparent distress at this time. Patient and/or ha1 family updated on plan of care and expected duration. Pain level reassessed. Patient is alert, oriented x 3, equal unlabored respirations, skin warm/dry/pink. PAIN 5/10 Patient states feeling better. Patient states symptoms have improved. Vital Signs: 01:05 BP 127 / 98; Pulse 83; Resp 17 S; Temp 97.5(TE); Pulse Ox 99% on R/A; Weight 72.57 kg lg3 (R); Height 5 ft. 1 in. (R); Pain 10/10; 02:22 BP 124 / 88; Pulse 80; Resp 17 S; Pulse Ox 99% on R/A; ha1 01:05 Body Mass Index 30.23 (72.57 kg, 154.94 cm) lg3 01:05 Pain Scale: Adult lg3 [place] Coma Score: 01:14 Eye Response: spontaneous(4). Motor Response: obeys commands(6). Verbal Response: km8 oriented(5). Total: 15. ED Course: 00:42 Patient arrived in ED. gm2 00:48 Jose D Terry MD is Attending Physician. rt 01:08 Triage completed. lg3 01:08 Arm band placed on right wrist. lg3 01:11 Joyce Lundberg RN is Primary Nurse. km8 01:14 Patient has correct armband on for positive identification. Bed in low position. Call km8 light in reach. Side rails up X 1. Pulse ox on. NIBP on. Door closed. Noise minimized. Lights dimmed. Warm blanket given. 01:14 Patient maintains SpO2 saturation greater than 95% on room air. km8 01:21 Inserted saline lock: 22 gauge in right antecubital area, using aseptic technique. ty 02:17 Report given to PEEWEE Mccormick. km8 02:29 No provider procedures requiring assistance completed. ha1 02:30 Provided Education on: MEDICATION ADMINISTRATION . ha1 02:40 IV discontinued, intact, bleeding controlled, No redness/swelling at site. Pressure ha1 dressing applied. Administered Medications: 01:31 Drug: metoCLOPramide IVP 10 mg IVP once; over 1 to 2 minutes Route: IVP; Site: right 8 antecubital; 02:03 Follow up: Response: No adverse reaction; Pain is decreased km8 01:31 Drug: diphenhydrAMINE IVP 25 mg IVP once Route: IVP; Site: right antecubital; km8 02:03 Follow up: Response: No adverse reaction; Pain is decreased 8 01:31 Drug: Magnesium Sulfate IVPB 2 grams IVPB once over 2 hrs Route: IVPB; Infused Over: 2 km8 hrs; Site: right antecubital; 02:41 Follow up: Response: No adverse reaction; IV Status: Completed infusion; IV Intake: ha1 100ml 01:31 Drug: Ketorolac IVP 15 mg IVP once Route: IVP; Site: right antecubital; km8 02:03 Follow up: Response: No adverse reaction; Pain is decreased 8 01:31 Drug: NS 0.9% IV 1000 ml IV at 1 bolus Per protocol; 1000 mL bolus Route: IV; Rate: 1 km8 bolus; Site: right antecubital; 02:40 Follow up: Response: No adverse reaction; IV Status: Completed infusion; IV Intake: ha1 1000ml Medication: 01:17 VIS not applicable for this client. km8 Intake: 02:40 IV: 1000ml; Total: 1000ml. ha1 02:41 IV: 100ml; Total: 1100ml. ha1 Outcome: 02:31 Discharge ordered by MD. rt 02:39 Discharged to home ambulatory, with family, ha1 02:39 Condition: improved 02:39 Discharge instructions given to patient, family, Instructed on discharge instructions, follow up and referral plans. Demonstrated understanding of instructions, follow-up care, 02:42 Patient left the ED. ha1 Signatures: Monae Guerrier RN RN lg3 Anny Johns RN RN ha1 Jose D Terry MD MD rt Heather Olivares 2 Joyce Lundberg RN RN km8 Caden Noble Corrections: (The following items were deleted from the chart) 02:29 02:03 Reassessment: Patient appears in no apparent distress at this time. Patient ha1 and/or family updated on plan of care and expected duration. Pain level reassessed. Patient is alert, oriented x 3, equal unlabored respirations, skin warm/dry/pink. Patient states feeling better. Patient states symptoms have improved. km8
--- NOTE | 2024-01-08 02:31 | EDPHYS ---
Physician Documentation [facility] Name: Judy Ivory Age: 33 yrs Sex: Female : 1990 Arrival Date: 01/08/2024 Time: 00:38 Bed 20 Private MD: ED Physician Jose D Terry HPI: 01/07 01:27 This 33 yrs old Female presents to ER via Ambulatory with complaints of Headache. rt 01:27 Patient presents to the ED with a headache, consistent with prior episodes of rt migraines. States it is left-sided. Started this afternoon. She took Excedrin, Motrin to no relief. Reports light sensitivity, denies sensitivity to sounds. Denies nausea, vomiting but he complains, symptoms are moderate in severity, no other aggravating or elevating factors.. 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 Flu vaccine is not up to date. - Social history:: Smoking status: Patient reports the use of cigarette tobacco products, smokes one-half pack cigarettes per day, Patient/guardian denies using alcohol, street drugs. - Family history:: not pertinent. ROS: 01:27 Constitutional: Negative for fever, chills, and weight loss, Cardiovascular: Negative rt for chest pain, palpitations, and edema, Respiratory: Negative for shortness of breath, cough, wheezing, and pleuritic chest pain, Abdomen/GI: Negative for abdominal pain, nausea, vomiting, diarrhea, and constipation, MS/Extremity: Negative for injury and deformity, Skin: Negative for injury, rash, and discoloration, : Neuro: Positive for headache, Negative for altered mental status, Exam: : Constitutional: This is a well developed, well nourished patient who is awake, alert, rt and in no acute distress. Head/Face: Normocephalic, atraumatic. Chest/axilla: Normal chest wall appearance and motion. Nontender with no deformity. No lesions are appreciated. Cardiovascular: Regular rate and rhythm with a normal S1 and S2. No gallops, murmurs, or rubs. Normal PMI, no JVD. No pulse deficits. Respiratory: Lungs have equal breath sounds bilaterally, clear to auscultation and percussion. No rales, rhonchi or wheezes noted. No increased work of breathing, no retractions or nasal flaring. Abdomen/GI: Soft, non-tender, with normal bowel sounds. No distension or tympany. No guarding or rebound. No evidence of tenderness throughout. Skin: Warm, dry with normal turgor. Normal color with no rashes, no lesions, and no evidence of cellulitis. MS/ Extremity: Pulses equal, no cyanosis. Neurovascular intact. Full, normal range of motion. Neuro: Awake and alert, GCS 15, oriented to person, place, time, and situation. Cranial nerves II-XII grossly intact. Motor strength 5/5 in all extremities. Sensory grossly intact. Cerebellar exam normal. Normal gait. Vital Signs: 01:05 BP 127 / 98; Pulse 83; Resp 17 S; Temp 97.5(TE); Pulse Ox 99% on R/A; Weight 72.57 kg lg3 (R); Height 5 ft. 1 in. (R); Pain 10/10; 02:22 BP 124 / 88; Pulse 80; Resp 17 S; Pulse Ox 99% on R/A; ha1 01:05 Body Mass Index 30.23 (72.57 kg, 154.94 cm) lg3 01:05 Pain Scale: Adult lg3 [place] Coma Score: 01:14 Eye Response: spontaneous(4). Motor Response: obeys commands(6). Verbal Response: km8 oriented(5). Total: 15. MDM: 01:14 Patient medically screened. rt 02:58 Differential diagnosis: Migraine headache. Data reviewed: vital signs, nurses notes. rt Test considered but Not performed: CT: Pain is similar character to previous migraines, symptoms resolved with treatment in the ED, CT scan is not dictated.. Care significantly affected by the following chronic conditions: Migraine headache. Counseling: I had a detailed discussion with the patient and/or guardian regarding the historical points, exam findings, and any diagnostic results supporting the discharge/admit diagnosis, the need for outpatient follow up, to return to the emergency department if symptoms worsen or persist or if there are any questions or concerns that arise at home. Response to treatment: the patient's symptoms have markedly improved after treatment. Administered Medications: 01:31 Drug: metoCLOPramide IVP 10 mg IVP once; over 1 to 2 minutes Route: IVP; Site: right 8 antecubital; 02:03 Follow up: Response: No adverse reaction; Pain is decreased [facility] 01:31 Drug: diphenhydrAMINE IVP 25 mg IVP once Route: IVP; Site: right antecubital; [facility] 02:03 Follow up: Response: No adverse reaction; Pain is decreased [facility] 01:31 Drug: Magnesium Sulfate IVPB 2 grams IVPB once over 2 hrs Route: IVPB; Infused Over: 2 km8 hrs; Site: right antecubital; 02:41 Follow up: Response: No adverse reaction; IV Status: Completed infusion; IV Intake: ha1 100ml 01:31 Drug: Ketorolac IVP 15 mg IVP once Route: IVP; Site: right antecubital; [facility] 02:03 Follow up: Response: No adverse reaction; Pain is decreased [facility] 01:31 Drug: NS 0.9% IV 1000 ml IV at 1 bolus Per protocol; 1000 mL bolus Route: IV; Rate: 1 km8 bolus; Site: right antecubital; 02:40 Follow up: Response: No adverse reaction; IV Status: Completed infusion; IV Intake: ha1 1000ml Disposition Summary: 01/08/24 02:31 Discharge Ordered Notes: Location: Home rt Problem: new rt Symptoms: have improved rt Condition: Stable rt Diagnosis - Migraine without aura, not intractable rt Followup: rt - With: Private Physician - When: 2 - 3 days - Reason: Discharge Instructions: - Discharge Summary Sheet rt - Migraine Headache rt Forms: - Medication Reconciliation Form rt - Thank You Letter rt - Antibiotic Education rt - Prescription Opioid Use rt - Patient Portal Instructions rt - Leadership Thank You Letter rt Signatures: Monae Guerrier RN RN lg3 Jose D Terry MD MD rt Joyce Lundberg RN RN km8 Anny Johns RN ha1
[2024-01-08 03:16] VITALS: BP 127/98; TEMP 97.5; O2SAT 99
== END ==
LOC: ER 00:38
DX: G43.009 Migraine without aura, not intractable, without status migrainosus (principal); F17.210 Nicotine dependence, cigarettes, uncomplicated; Z88.5 Allergy status to narcotic agent; Z28.310 Unvaccinated for COVID-19
CPT/HCPCS: J3475; J2765; J1200; J7030; 96365; 96375; 99284